=== PATIENT | female | born 1970 | race Caucasian/White ===

== ENCOUNTER 2018-02-22 21:18 | Emergency (ER) | payer MEDICARE ==
[2018-02-22] MEDS ORDERED: Ibuprofen 200 MG TAB ONE (22:02)
[2018-02-22] MEDS ORDERED: Acetaminophen 325 MG TAB ONE (22:02)
--- NOTE | 2018-02-22 22:23 | RAD ---
ONE VIEW CHEST: 02/22/18 COMPARISON: 03/27/13. HISTORY: Cough. FINDINGS: Normal cardiac silhouette. Lungs and pleural spaces are clear. No pneumothorax or acute osseous abnor malities. IMPRESSION: No acute cardiopulmonary process. POS: H
== END 2018-02-22 22:57 | disposition home or self-care (01) ==
LOC: ERS 21:18
DX: J10.1 Influenza due to other identified influenza virus with other respiratory manifestations (principal); E11.9 Type 2 diabetes mellitus without complications; E78.5 Hyperlipidemia, unspecified; E05.90 Thyrotoxicosis, unspecified without thyrotoxic crisis or storm; I10 Essential (primary) hypertension; Z87.891 Personal history of nicotine dependence; Z79.84 Long term (current) use of oral hypoglycemic drugs; Z79.899 Other long term (current) drug therapy
CPT/HCPCS: 71045; 87804

== ENCOUNTER 2018-10-17 11:42 | Emergency (ER) | payer MEDICARE, MEDICAID ==
[2018-10-17 12:27] LABS: #Eosinphils 0.3 thou/uL (0.0-0.7); #Lymphocytes 2.4 thou/uL (1.20-3.40); #Monocytes 0.5 thou/uL (0.11-0.59); #Neutrophils 5.5 thou/uL (1.40-6.50); %Basophils 0.3 % (0.0-1.0); %Lymphocytes 27.5 % (21.0-51.0); %Monocytes 6.2 % (0.0-10.0); Hemoglobin 10.6 g/dL (12.0-16.0); Mean Corpuscular HGB CONC 30.3 g/dL (32.0-36.0); Mean Corpuscular Hemoglobin 20.1 pg (27.0-31.0); Mean Corpuscular Volume 66.4 fL (78.0-98.0); Mean Platelet Volume 6.8 fL (7.4-10.4); Platelet Count 239 thou/uL (130-400); Red Blood Cell (RBC) Count 5.27 mill/uL (4.20-5.40); White Blood Cell (WBC) Count 8.8 thou/uL (4.8-10.8)
[2018-10-17 12:46] LABS: ALT (SGPT) 19 U/L (8-55); AST (SGOT) 22 U/L (5-34); Albumin 3.8 g/dL (3.5-5.0); Alkaline Phosphatase 132 U/L (40-150); Anion Gap 15 mmol/L (10-20); BUN (Urea Nitrogen) 8 mg/dL (7.0-18.7); Bilirubin, Total 0.7 mg/dL (0.2-1.2); Calc. Creatinine Clearance 0 mL/min (70-130); Calcium 8.9 mg/dL (7.8-10.44); Carbon Dioxide 21 mmol/L (22-29); Chloride 103 mmol/L (98-107); Estimated GFR-MDRD 85; Globulin 3.9 g/dL (2.4-3.5); Glucose 292 mg/dL (70-105); Potassium 3.6 mmol/L (3.5-5.1); Protein, Total 7.7 g/dL (6.0-8.3); Sodium 135 mmol/L (136-145)
[2018-10-17 12:52] LABS: Hypochromia MODERATE=16-30 cells (100X) (0-5/hpf); MDiff Complete? YES; Microcytosis MODERATE=15-30 cells (100X) (0-5/hpf); Platelet Morphology Comment Appears Adequate; Polychromasia SLIGHT = 2-3 cells (100X) (0-2/hpf); Reflex for Review?? YES
[2018-10-17 13:39] LABS: Bilirubin Negative (Negative); Blood, Urine Large (Negative); Clarity CLEAR (Clear); Glucose, Urine (Dipstick) >=1000 mg/dL (Negative); Leukocyte Negative (Negative); Nitrite Negative (Negative); Protein, Urine (Dipstick) 30 mg/dL (Neg-Trace); Specific Gravity, Urine 1.036 (1.002-1.036); Urobilinogen 0.2 mg/dL (0.2-1.0)
[2018-10-17 13:40] LABS: Bacteria/HPF None Seen HPF (None Seen); Hyaline Casts/LPF 0-3 HYALINE CAST LPF (0-3 Hyaline); Pathc Cast-AUWi Flag 0.68 (0-2.49); Squamous Epithelial 0-3 HPF (0-3); WBC/HPF 0-3 HPF (0-3)
[2018-10-17 13:48] LABS: Yeast-AUWi Flag 34.2 (0-25.0)
[2018-10-17 13:58] LABS: RBC/HPF GREATER THAN 50-TNTC HPF (0-3); Yeast-All Forms None Seen HPF (None Seen)
--- NOTE | 2018-10-17 15:32 | CT ---
CT ABDOMEN AND PELVIS WITHOUT CONTRAST: Date: 10/17/18 HISTORY: Abdominal pain, difficulty urinating. FINDINGS: Absence of oral and IV contrast reduces the sensitivity of exam, particularly for evaluation of solid organs and bowel. The lung bases are unremarkable. The liver demonstrates decreased attenuation comp ared to the spleen consistent with fatty infiltration. The patient is post cholecystectomy. No free a ir or free fluid is seen in the abdomen or pelvis. Appendix is normal. No calculi seen in the right kidney or left ureter. There are calculi in the inferior pole of the lef t kidney. A 4 mm calculus is seen in the urinary bladder close to the right UVJ. No right-sided hydro ureteronephrosis is seen. There is perinephric and periureteral stranding on the left. Uterus and ovaries are present. There is a 2.7 cm cystic lesion in the right ovary. There are degenerative changes in the spine. There is no evidence of aneurysmal dilatation of the abd ominal aorta. IMPRESSION: 1. Fatty liver. 2. Nonobstructing left renal calculi. 3. 4 mm calculus in the urinary bladder close to the right UVJ. 4. Findings suspicious for UTI. POS: OFF
[2018-10-17] MEDS ORDERED: Ketorolac Tromethamine 60 MG/2 ML VIAL ONE (16:15)
[2018-10-18 09:01] LABS: Critical Call w/ Read Back 520447
== END 2018-10-17 16:37 | disposition home or self-care (01) ==
LOC: ERS 11:42
DX: E07.9 Disorder of thyroid, unspecified (principal); E78.5 Hyperlipidemia, unspecified; I10 Essential (primary) hypertension; Z87.891 Personal history of nicotine dependence; Z79.84 Long term (current) use of oral hypoglycemic drugs; Z79.899 Other long term (current) drug therapy
CPT/HCPCS: 36415; 51701; 74176; 80053; 81003; 81015; 85025; 85060; 96372; J1885

== ENCOUNTER 2019-08-22 19:49 | Emergency (ER) | payer MEDICARE, MEDICAID ==
--- NOTE | 2019-08-22 20:21 | RAD ---
LEFT FOOT: 08/22/19 Three views. HISTORY: Fall with injury. Tarsals appear intact. There are degenerative changes in the intertarsal joints and at the tarsometat arsal joints. Slight deformity of the fourth and fifth metatarsals appear stable when compared to exam from 2015 an d suggests old injury. No acute fracture identified. IMPRESSION: No degenerative changes. No acute process or interval change. POS: AGW
[2019-08-22] MEDS ORDERED: HYDROcodone/Acetaminophen 5/325 mg Tablet ONE (21:03)
== END 2019-08-22 21:13 | disposition home or self-care (01) ==
LOC: ERS 19:49
DX: S93.602A Unspecified sprain of left foot, initial encounter (principal); E11.9 Type 2 diabetes mellitus without complications; E03.9 Hypothyroidism, unspecified; E78.5 Hyperlipidemia, unspecified; I10 Essential (primary) hypertension; G47.30 Sleep apnea, unspecified; G47.419 Narcolepsy without cataplexy; Z87.891 Personal history of nicotine dependence; W01.0XXA Fall on same level from slipping, tripping and stumbling without subsequent striking against object, initial encounter

== ENCOUNTER 2020-01-09 07:39 | Inpatient (IN) | payer MEDICARE, MEDICAID, OTHER ==
[2020-01-09 08:00] LABS: #Eosinphils 0.1 thou/uL (0.0-0.7); #Lymphocytes 2.4 thou/uL (1.20-3.40); #Monocytes 0.6 thou/uL (0.11-0.59); #Neutrophils 4.7 thou/uL (1.40-6.50); %Basophils 0.1 % (0.0-1.0); %Eosinophils 1.7 % (0.0-10.0); %Lymphocytes 30.7 % (21.0-51.0); %Monocytes 7.2 % (0.0-10.0); %Neutrophils 60.4 % (42.0-75.0); Hemoglobin 11.3 g/dL (12.0-16.0); Mean Corpuscular HGB CONC 29.8 g/dL (32.0-36.0); Mean Corpuscular Hemoglobin 20.4 pg (27.0-31.0); Mean Corpuscular Volume 68.3 fL (78.0-98.0); Mean Platelet Volume 11.1 fL (7.4-10.4); Platelet Count 428 thou/uL (130-400); RBC Distribution Width 16.6 % (11.5-14.5); Red Blood Cell (RBC) Count 5.56 mill/uL (4.20-5.40); White Blood Cell (WBC) Count 7.9 thou/uL (4.8-10.8)
[2020-01-09 08:07] LABS: Prothrombin Time 13.4 sec (12.0-14.7)
[2020-01-09 08:08] LABS: PTT 34.5 sec (22.9-36.1)
[2020-01-09 08:14] LABS: ALT (SGPT) 29 U/L (8-55); AST (SGOT) 27 U/L (5-34); Albumin 4.1 g/dL (3.5-5.0); Alkaline Phosphatase 118 U/L (40-110); Anion Gap 14 mmol/L (10-20); BUN (Urea Nitrogen) 15 mg/dL (7.0-18.7); Bilirubin, Total 0.5 mg/dL (0.2-1.2); CK (CPK) 93 U/L (29-168); Calc. Creatinine Clearance 0 mL/min (70-130); Calcium 9.4 mg/dL (7.8-10.44); Carbon Dioxide 22 mmol/L (22-29); Chloride 102 mmol/L (98-107); Estimated GFR-MDRD 81; Globulin 4.2 g/dL (2.4-3.5); Glucose 294 mg/dL (70-105); Potassium 3.9 mmol/L (3.5-5.1); Protein, Total 8.3 g/dL (6.0-8.3); Sodium 134 mmol/L (136-145)
[2020-01-09 08:25] LABS: Hypochromia MODERATE=16-30 cells (100X) (0-5/hpf); MDiff Complete? YES; Microcytosis MODERATE=15-30 cells (100X) (0-5/hpf); Platelet Morphology Comment Appears Increased; Polychromasia SLIGHT = 2-3 cells (100X) (0-2/hpf); Reflex for Review?? YES
--- NOTE | 2020-01-09 08:34 | CT ---
EXAM: CT ANGIOGRAM OF THE HEAD AND NECK INDICATION: Right-sided deficit. Level 1 stroke. COMPARISON: None. TECHNIQUE: CT angiogram of the head and neck are performed in the axial plane. Three-dimensional reformatted usman ges are submitted for interpretation. FINDINGS: CTA OF THE HEAD WITH AND WITHOUT CONTRAST: POSTCONTRAST CT OF BRAIN: Pathologic enhancement: No pathologic enhancement the brain. Postcontrast soft tissue neck CT: Aerodigestive tract:Aerodigestive tract is patent. No mucosal abnormality. Sinuses: Adequate aeration of the paranasal sinuses. There is sclerosis of both mastoid air cells. Pa rtial opacification of the right mastoid air cells.. Orbits: Bilateral ocular lenses are appropriately located. Both globes are intact. Retrobulbar fat is preserved. Symmetric attenuation the optic nerves and ocular rectus muscles. Salivary glands:Symmetric attenuation of the parotid and submandibular glands. Thyroid gland: Appropriate attenuation. Lymph nodes: Enlarged right level 2 lymph node measuring 1.4 x 1.3 cm. Paraspinal muscles: Symmetric attenuation of the sternocleidomastoid muscles. Appropriate attenuation of the paraspinal muscles. Cervical spine:Vertebral body height is maintained. No fracture. No significant central canal stenosi s or significant neural foraminal narrowing. Limited evaluation by technique. Upper mediastinum and lung apices: Cardiomegaly. Adequate aeration of the visualized lungs. CTA OF THE NECK WITH CONTRAST: Aorta: Appropriate enhancement and luminal diameter of the aortic arch. Right carotid artery: Appropriate enhancement and luminal diameter the origin the right carotid arter y, innominate artery, common carotid artery and internal carotid artery. No significant stenosis based upon NASCET criteria. Left carotid: Appropriate enhancement and luminal diameter the origin of the left common carotid devin ry, common carotid artery, carotid bifurcation and internal carotid artery. No significant stenosis based upon NASCET criteria. Subclavian arteries:Symmetric and patent. Vertebral arteries:Symmetric and patent throughout their course in the neck. CTA OF THE BRAIN: Intracranial internal carotid arteries:Appropriate enhancement and luminal diameter. No significant s tenosis. Anterior circulation: Symmetric enhancement and luminal diameter the A1 segments, proximal A2 segment s, M1 segments and proximal MCA branches. Intracranial vertebral arteries: Appropriate enhancement and luminal diameter. Right PICA artery orig in is not adequately assessed. Left PICA artery origin has appropriate enhancement and luminal diameter. Posterior circulation: Both vertebral arteries supply normal caliber basilar artery. Right P1 segment is appropriate enhancement and luminal diameter. Short segment severe stenosis involving the mid left P1 segment. IMPRESSION: 1. No hemodynamically significant stenosis, occlusion or aneurysmal formation of the cervical carotid arteries. 2. No hemodynamically significant stenosis, occlusion or aneurysmal formation in the anterior circula tion. 3. Short segment high-grade stenosis involving the mid left P1 segment. Results study discussed with Dr. Delacruz 01/09/2020 at 8:34 AM Code CR Transcribed Date/Time: 01/09/2020 8:46 AM
[2020-01-09] MEDS ORDERED: Aspirin 325 MG TAB ONE (09:11)
--- NOTE | 2020-01-09 09:18 | CT ---
CT BRAIN WITHOUT CONTRAST: HISTORY: Right-sided deficits. COMPARISON: None. FINDINGS: Subtle hypodensity along the external capsule on the left as well as the globus pallidus may reflect an acute infarction. The insular ribbon is intact. No acute hemorrhage. No midline shift. Paranasal sinuses and mastoids are clear. IMPRESSION: Subtle hypodensity along the left basal ganglia could reflect an acute infarction. No acute hemorrha ge. Hubbard, the patient's nurse, was notified of the findings via telephone at 8:07 a.m. CODE CR POS: HOME
--- NOTE | 2020-01-09 10:11 | PDOC.HHP ---
Hospitalist HPI - History of Present Illness Right-sided weakness History of Present Illness: PCP: [facility] The patient is a 49-year-old female with a past medical history significant for hypertension, hyperlipidemia, diabetes and obstructive sleep apnea that presents to the ER for the above complaint. Patient reports that she went to bed at approximately 2200 the night prior to admission in her usual health. She awoke at around 0200 and went to the kitchen to get some food. She noted that she was having difficulty using her right arm and right leg. She reports that she was unable to grasp a bag of chips. She reports that she was dragging her right leg. At that time, she thought that she had just slept on her right side wrong, making it numb and weak. She went back to bed. When she awoke, her symptoms had not resolved. Her daughter, who lives with her became concerned and decided to drive her to the ER for further evaluation. She denies any headache, neck stiffness, vision changes, or changes in speech. No recent trauma or falls. Not on any blood thinners. Denies chest pain, heart palpitations and swelling to lower extremities. Denies shortness of breath and wheezing. She denies abdominal pain, vomiting, diarrhea. She denies any urinary symptoms. ED Course: Patient presented hypertensive, mildly tachycardic with normal respirations normal O2 sat, afebrile NIH 7, noted right upper and lower extremity weakness and sensation decreased. No ataxia. CT brain was positive for left basal ganglia hypodensity consistent with infarct. CTA head and neck showed high-grade stenosis mid left P1 segment. VITAL SIGNS WedJan 09, 2020 07:41 GUS Trevizo Lacee BP: 178/105, Pulse: 95, Resp: 18, Temp: 98.2 (Oral), Pain: 0, O2 sat: 99 on ( Room Air), Time: 01/09/2020 07:41. VITAL SIGNS WedJan 09, 2020 08:53 GUS Walls Taylor BP: 118/62, Pulse: 85, Resp: 20, Pain: 0, O2 sat: 100 on (Room Air), Time: 2019 08:53. WedJan 09, 2020 10:05 Drug Name Dose Ordered Route Status Time aspirin oral 325 mg Oral Given 09:15 01/09/2020 Hospitalist ROS - Review of Systems Constitutional: denies: fever, chills Eyes: denies: vision change Respiratory: denies: cough, shortness of breath, hemoptysis Cardiovascular: denies: chest pain, palpitations, edema, light headedness Gastrointestinal: denies: nausea, vomiting, abdominal pain, diarrhea Genitourinary: denies: dysuria, hematuria Musculoskeletal: denies: neck pain Neurological: reports: weakness (Right upper extremity and right lower extremity ), numbness (Right upper extremity and right lower extremity), incoordination ( Right upper and lower extremity). denies: confusion All other systems reviewed; all pertinent +/- noted in HPI/Subj - Medication Medications: metFORMIN WedJan 09, 2020 08:06 GUS Ash Jenifer TABLET : Strength - 500 mg : ORAL Patient Dose: 1000 mg Oral 2 times a day (before meals). lisinopril WedJan 09, 2020 08:06 GUS Ash Jenifer TABLET : Strength - 20 mg : ORAL Patient Dose: 40 mg Oral daily. levothyroxine oral WedJan 09, 2020 08:06 GUS Ash Jenifer TABLET : Strength - 25 mcg : ORAL Patient Dose: 1 tab(s) Oral once a day (in the morning). fenofibrate WedJan 09, 2020 08:08 GUS Ash Jenifer TABLET : Strength - 160 mg : ORAL Patient Dose: 54 mg Oral once a day. glipiZIDE WedJan 09, 2020 08:08 GUS Ash Jenifer TABLET : Strength - 5 mg : ORAL Patient Dose: 5 mg Oral twice daily. hydroCHLOROthiazide WedJan 09, 2020 08:08 GUS Ash Jenifer TABLET : Strength - 25 mg : ORAL Patient Dose: 1 tab(s) Oral once a day (in the morning). Allergies: NKDA Hospitalist History - Past Medical History Source: patient, family, RN notes reviewed Other Medical History: MEDICAL HISTORY WedJan 09, 2020 08:56 GUS Walls Taylor Past medical history includes history of diabetes, Past medical history includes endocrine disease, hyperthyroidism, Past medical history includes history of hyperlipidemia, Past medical history includes history of hypertension , Past medical history includes neurological disease, narcolepsy, SLEEP APNEA. FEMALE SURGICAL HISTORY WedJan 09, 2020 08:56 GUS Walls Taylor Surgical history of cholecystectomy, Surgical history of orthopedic surgery, Left elbow. PSYCHIATRIC HISTORY WedJan 09, 2020 08:56 GUS Walls Taylor No previous psychiatric history. SOCIAL HISTORY WedJan 09, 2020 08:56 GUS Walls Taylor Patient denies alcohol use, Patient denies drug use, Patient is a former tobacco user, smoked cigarettes, Patient quit smoking more than 10 years ago. Smoking Status-Former. Lives with her daughter at home. She is disabled. Prior to admission, fully dependent. FAMILY HISTORY: Noncontributory for stroke or cardiac disease - Exam General Appearance: NAD, awake alert General - other findings: Obese Eye: PERRL, anicteric sclera ENT: normocephalic atraumatic, moist mucosa Neck: supple, symmetric Heart: RRR, no murmur, no gallops, no rubs, normal peripheral pulses Respiratory: CTAB, no wheezes, no rales, no ronchi, normal chest expansion Gastrointestinal: soft, non-tender, non-distended, normal bowel sounds, no bruit , no guarding, no rigidity Extremities: no cyanosis, no edema Skin: no rashes Neurological: cranial nerve grossly intact Neurological - other findings: NIH of 7 RUE/LLE drift hits bed. Numbness. Psychiatric: normal affect, A&O x 3 Hospitalist Results - Labs Result Diagrams: 01/09/20 07:46 01/09/20 07:46 Lab results: WBC 7.9 thou/uL (4.8-10.8) 01/09/20 07:46 Hgb 11.3 g/dL (12.0-16.0) L 01/09/20 07:46 Hct 38.0 % (36.0-47.0) 01/09/20 07:46 MCV 68.3 fL (78.0-98.0) L 01/09/20 07:46 Plt Count 428 thou/uL (130-400) H 01/09/20 07:46 Neutrophils % 60.4 % (42.0-75.0) 01/09/20 07:46 Sodium 134 mmol/L (136-145) L 01/09/20 07:46 Potassium 3.9 mmol/L (3.5-5.1) 01/09/20 07:46 Chloride 102 mmol/L (98-107) 01/09/20 07:46 Carbon Dioxide 22 mmol/L (22-29) 01/09/20 07:46 BUN 15 mg/dL (7.0-18.7) 01/09/20 07:46 Creatinine 0.76 mg/dL (0.6-1.1) 01/09/20 07:46 Glucose 294 mg/dL (70-105) H 01/09/20 07:46 Calcium 9.4 mg/dL (7.8-10.44) 01/09/20 07:46 Total Bilirubin 0.5 mg/dL (0.2-1.2) 01/09/20 07:46 AST 27 U/L (5-34) 01/09/20 07:46 ALT 29 U/L (8-55) 01/09/20 07:46 Alkaline Phosphatase 118 U/L (40-110) H 01/09/20 07:46 Creatine Kinase 93 U/L (29-168) 01/09/20 07:46 Troponin I Less than 0.010 ng/mL (< 0.028) 01/09/20 07:46 Serum Total Protein 8.3 g/dL (6.0-8.3) 01/09/20 07:46 Albumin 4.1 g/dL (3.5-5.0) 01/09/20 07:46 - EKG Interpretation EKG: EKG demonstrates normal sinus rhythm with rate 72, WI 152, QRS duration of 90, QTc of 462, cures axis -11 with normal T waves normal axis normal conduction normal ST segments. Normal EKG. - Radiology Interpretation CT scan - head Status: report reviewed by me Additional Comment: IMPRESSION: Subtle hypodensity along the left basal ganglia could reflect an acute infarction. No acute hemorrhage. Other Status: report reviewed by me Additional Comment: CTA head and neck IMPRESSION: 1. No hemodynamically significant stenosis, occlusion or aneurysmal formation of the cervical carotid arteries. 2. No hemodynamically significant stenosis, occlusion or aneurysmal formation in the anterior circula tion. 3. Short segment high-grade stenosis involving the mid left P1 segment. Hospitalist H&P A/P - Problem (1) CVA (cerebral vascular accident) Code(s): I63.9 - CEREBRAL INFARCTION, UNSPECIFIED Status: Acute (2) Hypertension Code(s): I10 - ESSENTIAL (PRIMARY) HYPERTENSION Status: Chronic (3) Hyperlipidemia Code(s): E78.5 - HYPERLIPIDEMIA, UNSPECIFIED Status: Chronic (4) Diabetes Code(s): E11.9 - TYPE 2 DIABETES MELLITUS WITHOUT COMPLICATIONS Status: Chronic (5) DM type 2 (diabetes mellitus, type 2) Status: Chronic (6) Hypothyroidism Code(s): E03.9 - HYPOTHYROIDISM, UNSPECIFIED Status: Chronic (7) Obstructive sleep apnea Code(s): G47.33 - OBSTRUCTIVE SLEEP APNEA (ADULT) (PEDIATRIC) Status: Chronic - Plan Plan: 49/F with cardiovascular risk factors presents for right-sided weakness. Will admit to stroke unit, inpatient status. Expected length of stay greater than 2 midnights. #CVA CT positive for left basal ganglia hypodensity. CTA showed high-grade stenosis mid L left P1 segment. NIH 7. Given aspirin. EKG normal sinus rhythm. Continue aspirin and add statin. Order MRI, echocardiogram. Check TSH, FLP, mag, UA, B12 and folate. Consult neurology and stroke team. Permissive hypertension. #Hypertension Presented with BP 178/105, currently 117/86. Takes lisinopril and HCTZ at home. We will hold oral home medications for now. We will continue to monitor blood pressure. #Hyperlipidemia We will check best lipid profile. Home dose of fenofibrate. We will restart home dose of fenofibrate and add high intensity statin. #Diabetes type 2 Takes metformin and glipizide at home. Presented with blood sugar 294. We will hold home anti-hyperglycemics for now. We will start moderate sliding scale. AC/at bedtime checks. We will check hemoglobin A1c. #Hypothyroidism Restart home dose of levothyroxine. Check TSH level. #Obstructive sleep apnea Has not used CPAP in > 6 years. Lovenox for DVT prophylaxis. Pepcid for GI prophylaxis. Full code. Discussed case with Dr. Gomez.
[2020-01-09] MEDS ORDERED: Labetalol HCl 100 MG/20 ML VIAL SLOW IVP PRN (10:44)
[2020-01-09] MEDS ORDERED: hydrALAZINE 20 MG/ML VIAL SLOW IVP PRN (10:44)
[2020-01-09] MEDS ORDERED: Dextrose 5% in Water 1,000 ML IV PRN (10:48)
[2020-01-09] MEDS ORDERED: Dextrose 50% Abboject 50 ML SYRINGE SLOW IVP PRN (10:48)
[2020-01-09] MEDS ORDERED: Calcium Carbonate 500 MG ChewTAB PO PRN (10:49)
[2020-01-09] MEDS ORDERED: Acetaminophen 650 MG Suppository PR PRN (10:49)
[2020-01-09] MEDS ORDERED: Ondansetron ODT 4 MG TAB PO PRN (10:49)
[2020-01-09] MEDS ORDERED: Ondansetron PF 4 MG/2 ML Vial IVP PRN (10:49)
[2020-01-09] MEDS ORDERED: Senokot S 8.6-50 MG TAB PO PRN (10:49)
[2020-01-09 11:20] LABS: Hemoglobin A1c 10.4 % (4.0-6.0)
--- NOTE | 2020-01-09 12:26 | MRI ---
MRI BRAIN WITHOUT CONTRAST: HISTORY: Right-sided paresthesia COMPARISON: None CORRELATION: CT scan from 01/09/2020. FINDINGS: There is a focal area of restricted diffusion in the left basal ganglia. The ventricular size is nora ropriate and the basilar cisterns are patent. No evidence of acute transcortical infarct, hemorrhage, midline shift or abnormal extra-axial fluid c ollections is seen. The visualized paranasal sinuses are well-aerated. IMPRESSION: Acute left basal ganglia infarction..
[2020-01-09] MEDS ORDERED: Iopamidol-370 76% 500 ML 1 ML ONE (14:55)
[2020-01-09 15:13] VITALS: BMI 36.2
[2020-01-09] MEDS ORDERED: Magnesium 2 GM/50 ML 2 GM in Premix Bag 1 BAG IVPB SCH (15:30)
[2020-01-09] MEDS: HumaLOG 300 UNITS/3 ML VIAL SC PRN ×2 (18:11→21:17)
[2020-01-09] MEDS: Atorvastatin Calcium 40 MG TAB PO SCH (21:08)
[2020-01-09] MEDS: Famotidine 20 MG TAB PO SCH (21:08)
[2020-01-09] MEDS: Enoxaparin Sodium 40 MG/0.4 ML SYRINGE SC SCH (21:09)
[2020-01-09 21:22] LABS: Bilirubin Negative (Negative); Blood, Urine Trace (Negative); Clarity Clear (Clear); Glucose, Urine (Dipstick) Greater than 1000 mg/dL (Negative); Ketone, Urine Negative (Negative); Leukocyte Negative Leu/uL (Negative); Nitrite Negative (Negative); Protein, Urine (Dipstick) 20 mg/dL (Neg-Trace); RBC/HPF 0-3 HPF (0-3); Squamous Epithelial 0-3 HPF (0-3); Urobilinogen Normal mg/dL (Less than 2); WBC/HPF 0-3 HPF (0-3)
[2020-01-09 21:23] LABS: Bacteria/HPF Rare-Few HPF (None Seen)
[2020-01-10 06:50] LABS: Anion Gap 12 mmol/L (10-20); BUN (Urea Nitrogen) 13 mg/dL (7.0-18.7); Calc. Creatinine Clearance 132 mL/min (70-130); Calcium 8.7 mg/dL (7.8-10.44); Carbon Dioxide 25 mmol/L (22-29); Cardiac Risk 6.6 (Less than 4.5); Chloride 102 mmol/L (98-107); Cholesterol 178 mg/dl (< 200 Desired); Estimated GFR-MDRD 87; Glucose 273 mg/dL (70-105); HDL Cholesterol 27 mg/dL (>60 Neg Risk); Potassium 3.9 mmol/L (3.5-5.1); Sodium 135 mmol/L (136-145); Triglycerides 437 mg/dL (Less than 150)
[2020-01-10 08:45] LABS: LDL Cholesterol, Calculated 64 mg/dL
[2020-01-10] MEDS: Aspirin 325 mg Enteric Coated Tablet PO SCH (09:13)
[2020-01-10] MEDS ORDERED: Famotidine 20 MG TAB ONE (09:13)
[2020-01-10] MEDS ORDERED: Aspirin 325 mg Enteric Coated Tablet ONE (09:13)
[2020-01-10] MEDS: Famotidine 20 MG TAB PO SCH ×2 (09:13→21:05)
[2020-01-10 10:53] LABS: #Neutrophils 3.6 thou/uL (1.40-6.50); %Basophils 0.4 % (0.0-1.0); %Eosinophils 2.7 % (0.0-10.0); %Lymphocytes 35.8 % (21.0-51.0); %Monocytes 7.1 % (0.0-10.0); Hemoglobin 10.2 g/dL (12.0-16.0); Mean Corpuscular HGB CONC 30.1 g/dL (32.0-36.0); Mean Corpuscular Hemoglobin 20.9 pg (27.0-31.0); Mean Corpuscular Volume 69.4 fL (78.0-98.0); Mean Platelet Volume 10.1 fL (7.4-10.4); Platelet Count 358 thou/uL (130-400); RBC Distribution Width 16.5 % (11.5-14.5); Red Blood Cell (RBC) Count 4.87 mill/uL (4.20-5.40); White Blood Cell (WBC) Count 6.7 thou/uL (4.8-10.8)
[2020-01-10 10:54] LABS: #Eosinphils 0.2 thou/uL (0.0-0.7); #Lymphocytes 2.4 thou/uL (1.20-3.40); #Monocytes 0.5 thou/uL (0.11-0.59); Anisocytosis SLIGHT = 6-15 cells (100X) (0-5/hpf); MDiff Complete? YES; Microcytosis SLIGHT = 6-15 cells (100X) (0-5/hpf); Platelet Morphology Comment Appears Adequate
[2020-01-10] MEDS: HumaLOG 300 UNITS/3 ML VIAL SC PRN ×2 (11:59→17:08)
[2020-01-10 12:35] LABS: SARS-CoV-2 MS2 Positive; SARS-CoV-2 N Gene Negative; SARS-CoV-2 S Gene Negative; SARS-CoV-2 by NAA Not Detected (NotDetected); SARS-CoV-2 orf1ab Negative
--- NOTE | 2020-01-10 13:14 | CON ---
NEUROLOGY CONSULTATION DATE OF CONSULTATION: 01/10/2020 REASON FOR CONSULTATION: Stroke. HISTORY OF PRESENT ILLNESS: Ms. Hortencia Duval is a 49-year-old female with medical history significant for hypertension, hyperlipidemia, diabetes, and obstructive sleep apnea, presented to the emergency room with acute onset right-sided weakness. She woke up around 2 and went to the kitchen to get some food and at that time, she noted she has difficulty using her right arm and the right leg. She reports that she was unable to grasp a bag of chips and she was dragging her right leg. The patient thought at that time that she just slept on the wrong side and was feeling numb and weak. She went back to bed. When she woke up, her symptoms persisted and she told her daughter who became concerned and decided to bring her to the emergency room for further evaluation. The patient denies nausea, vomiting, headache, chest pain, abdominal pain, vision changes, changes in speech or swallowing, recent illness, recent exposure to COVID, nausea, vomiting, diarrhea, or any urinary complaints. In the emergency room, she was found to be hypertensive and NIH score was [address] was done, which was positive for left basal ganglia hypodensity consistent with new infarction. CT of the head and neck showed high-grade stenosis of the mid left P1 segment. She was given aspirin 325 mg and was admitted for further evaluation. REVIEW OF SYSTEMS: All 14 systems were reviewed and were negative except the pertinent positive and negative mentioned in the HPI. PAST MEDICAL HISTORY: Diabetes, hypothyroidism, hyperlipidemia, hypertension, narcolepsy, sleep apnea. SURGICAL HISTORY: Orthopedic surgery. SOCIAL HISTORY: The patient lives with her daughter. Denies smoking, alcohol, illegal drug use. She is a former smoker. FAMILY HISTORY: No family history of stroke or cardiac disease. HOME MEDICATIONS: 1. Metformin 1000 mg p.o. b.i.d. 2. Lisinopril 40 mg daily. 3. Levothyroxine 25 mcg one tablet once a day. 4. Fenofibrate 54 mg once a day. 5. Glipizide 5 mg twice daily. 6. Hydrochlorothiazide 25 mg twice a day. ALLERGIES: NO KNOWN DRUG ALLERGIES. PHYSICAL EXAMINATION: VITAL SIGNS: Blood pressure 170/100, pulse 80, respiratory rate 18. CVS: Regular rate and rhythm. CHEST: Clear. ABDOMEN: Soft. NECK: Supple. NEUROLOGIC: Mental status; the patient is alert and oriented to person, place, and time. Speech is clear. Recent and remote memory intact. Fund of knowledge is appropriate. Motor; muscle tone is decreased in the right upper and lower extremity, left upper and lower extremity normal. Bulk is normal. Strength; right upper and lower extremity 1/5, left upper and lower extremity 5/5. Cerebellar; finger-nose testing could not be performed on the right secondary to weakness. Sensory, decreased sensation to touch in the right upper and lower extremity. Cranial nerves 2 through 12 intact except 7 left facial droop and 10 dysarthria. DATA REVIEWED: I reviewed the labs which are significant for anemia, 11.3 and hyperglycemia 428 and hyponatremia of 134 on admission. ia. Lab results: WBC 7.9 thou/uL (4.8-10.8) 01/09/20 07:46 Hgb 11.3 g/dL (12.0-16.0) L 01/09/20 07:46 Hct 38.0 % (36.0-47.0) 01/09/20 07:46 MCV 68.3 fL (78.0-98.0) L 01/09/20 07:46 Plt Count 428 thou/uL (130-400) H 01/09/20 07:46 Neutrophils % 60.4 % (42.0-75.0) 01/09/20 07:46 Sodium 134 mmol/L (136-145) L 01/09/20 07:46 Potassium 3.9 mmol/L (3.5-5.1) 01/09/20 07:46 Chloride 102 mmol/L (98-107) 01/09/20 07:46 Carbon Dioxide 22 mmol/L (22-29) 01/09/20 07:46 BUN 15 mg/dL (7.0-18.7) 01/09/20 07:46 Creatinine 0.76 mg/dL (0.6-1.1) 01/09/20 07:46 Glucose 294 mg/dL (70-105) H 01/09/20 07:46 Calcium 9.4 mg/dL (7.8-10.44) 01/09/20 07:46 Total Bilirubin 0.5 mg/dL (0.2-1.2) 01/09/20 07:46 AST 27 U/L (5-34) 01/09/20 07:46 ALT 29 U/L (8-55) 01/09/20 07:46 Alkaline Phosphatase 118 U/L (40-110) H 01/09/20 07:46 Creatine Kinase 93 U/L (29-168) 01/09/20 07:46 Troponin I Less than 0.010 ng/mL (< 0.028) 01/09/20 07:46 Serum Total Protein 8.3 g/dL (6.0-8.3) 01/09/20 07:46 Albumin 4.1 g/dL (3.5-5.0) 01/09/20 07:46 - EKG Interpretation EKG: EKG demonstrates normal sinus rhythm with rate 72, CO 152, QRS duration of 90, QTc of 462, cures axis -11 with normal T waves normal axis normal conduction normal ST segments. Normal EKG. - Radiology Interpretation CT scan - head Status: report reviewed by me Additional Comment: IMPRESSION: Subtle hypodensity along the left basal ganglia could reflect an acute infarction. No acute hemorrhage. Other Status: report reviewed by me Additional Comment: CTA head and neck IMPRESSION: 1. No hemodynamically significant stenosis, occlusion or aneurysmal formation of the cervical carotid arteries. 2. No hemodynamically significant stenosis, occlusion or aneurysmal formation in the anterior circula tion. 3. Short segment high-grade stenosis involving the mid left P1 segment. ASSESSMENT AND PLAN: (1) CVA (cerebral vascular accident) Code(s): I63.9 - CEREBRAL INFARCTION, UNSPECIFIED Status: Acute (2) Hypertension Code(s): I10 - ESSENTIAL (PRIMARY) HYPERTENSION Status: Chronic (3) Hyperlipidemia Code(s): E78.5 - HYPERLIPIDEMIA, UNSPECIFIED Status: Chronic (4) Diabetes Code(s): E11.9 - TYPE 2 DIABETES MELLITUS WITHOUT COMPLICATIONS Status: Chronic (5) DM type 2 (diabetes mellitus, type 2) Status: Chronic (6) Hypothyroidism Code(s): E03.9 - HYPOTHYROIDISM, UNSPECIFIED Status: Chronic (7) Obstructive sleep apnea Code(s): G47.33 - OBSTRUCTIVE SLEEP APNEA (ADULT) (PEDIATRIC) Status: Chronic Ms. Hortencia Duval is a 49-year-old female with history of hypertension, hyperlipidemia, presented with acute onset right-sided weakness. MRI of the brain was consistent with acute infarction in the left basal ganglia. Neuro checks every 4 hours. Permissive control of blood pressure at this time. Strict control of blood glucose. Check hemoglobin A1c, fasting lipid panel, and TSH. Telemetry to rule out arrhythmias. Continue home medications. Continue aspirin and high-intensity statin for secondary stroke prevention. PT/OT/Speech. DVT prophylaxis. Continue medical management per primary team. We will continue to follow. Thank you for the consult. Job ID: [id number]
[2020-01-10] MEDS: Methocarbamol 500 MG TAB PO PRN (17:07)
--- NOTE | 2020-01-10 18:04 | PDOC.HOSPP ---
- Subjective Encounter Date: 01/10/20 Subjective: Reports feeling well. Ongoing weakness of right upper and lower extremity. She denies chest pain, shortness of breath, abdominal pain. - Objective Vital Signs & Weight: Vital Signs (12 hours) Temp Pulse Pulse Resp BP BP BP 01/10/20 15:42 97.8 F 89 18 151/91 H 01/10/20 11:21 97.5 F L 76 18 157/85 H 01/10/20 08:46 79 140/98 H 01/10/20 08:22 85 156/80 H 140/98 H 01/10/20 07:33 97.5 F L 70 14 126/71 Pulse Ox 01/10/20 15:42 99 01/10/20 11:21 97 01/10/20 08:46 01/10/20 08:22 01/10/20 07:33 97 Weight Admit Weight 191 lb 12.8 oz Weight 191 lb 12.8 oz Result Diagrams: 01/10/20 03:53 01/10/20 03:30 Additional Labs: Accuchecks 01/10/20 01/10/20 01/09/20 16:35 10:55 20:47 POC Glucose 243 H 246 H 266 H 01/09/20 17:13 POC Glucose 240 H Hospitalist ROS - Review of Systems Constitutional: denies: fever, chills Respiratory: denies: cough, shortness of breath Cardiovascular: denies: chest pain, palpitations Gastrointestinal: denies: nausea, vomiting, abdominal pain Neurological: reports: weakness, numbness. denies: confusion - Medication Medications: Active Medications Generic Name Dose Route Start Last Admin Trade Name Sebastian PRN Reason Stop Dose Admin Aspirin 325 mg 01/10/20 09:00 01/10/20 09:13 Ecotrin PO 325 mg DAILY ALTAGRACIA Administration Atorvastatin Calcium 40 mg 01/09/20 21:00 01/09/20 21:08 Lipitor PO 40 mg HS ALTAGRACIA Administration Enoxaparin Sodium 40 mg 01/09/20 21:00 01/09/20 21:09 Lovenox SC 40 mg 2100 ALTAGRACIA Administration Famotidine 20 mg 01/09/20 21:00 01/10/20 09:13 Pepcid PO 20 mg BID ALTAGRACIA Administration Insulin Human Lispro 0 units 01/09/20 10:48 01/10/20 17:08 Humalog SC 4 unit .MODERATE SLIDING SC PRN Administration Moderate Correctional Scale Insulin Human Lispro 0 units 01/09/20 10:48 01/09/20 21:17 Humalog SC 3 unit .BEDTIME SLIDING SC PRN Administration Bedtime Correctional Scale Methocarbamol 500 mg 01/10/20 16:43 01/10/20 17:07 Methocarbamol 500 Mg Tab PO 500 mg QID PRN Administration Muscle Spasm Sodium Chloride 10 ml 01/09/20 10:44 01/09/20 21:09 Flush - Normal Saline IVF 10 ml PRN PRN Administration Saline Flush - Exam General Appearance: NAD, awake alert ENT: normocephalic atraumatic Heart: RRR, no murmur Respiratory: CTAB, no wheezes Gastrointestinal: soft, non-tender, non-distended Extremities: negative: no cyanosis, no edema Neurological: cranial nerve grossly intact, hemiplegia (of rigth side). negative: speech deficit Psychiatric: normal affect, normal behavior, A&O x 3 Hosp A/P (1) CVA (cerebral vascular accident) Code(s): I63.9 - CEREBRAL INFARCTION, UNSPECIFIED Status: Acute (2) DM type 2 (diabetes mellitus, type 2) Status: Chronic (3) Hyperlipidemia Code(s): E78.5 - HYPERLIPIDEMIA, UNSPECIFIED Status: Chronic (4) Hypertension Code(s): I10 - ESSENTIAL (PRIMARY) HYPERTENSION Status: Chronic (5) Hypothyroidism Code(s): E03.9 - HYPOTHYROIDISM, UNSPECIFIED Status: Chronic (6) Obstructive sleep apnea Code(s): G47.33 - OBSTRUCTIVE SLEEP APNEA (ADULT) (PEDIATRIC) Status: Chronic - Plan #CVA CT positive for left basal ganglia hypodensity. CTA showed high-grade stenosis mid L left P1 segment. NIH 7. Given aspirin. EKG normal sinus rhythm. Continue aspirin and statin MRI- acute left basal ganglia infarction echo- EF 60-65% with grade 1 diastolic dysfunction follow-up on labs Consult neurology and stroke team. #Hypertension will restart oral antihypertensives lisinopril 20mg and HCTZ 25mg #Hyperlipidemia fenofibrate and add high intensity statin. #Diabetes type 2 Takes metformin and glipizide at home. Presented with blood sugar 294. We will start moderate sliding scale. AC/at bedtime checks. We will check hemoglobin A1c. started 10 units glargine at night #Hypothyroidism Restart home dose of levothyroxine. Check TSH level. #Obstructive sleep apnea Has not used CPAP in > 6 years. Lovenox for DVT prophylaxis. Pepcid for GI prophylaxis. Full code.
[2020-01-10] MEDS ORDERED: Lorazepam 1 MG TAB PO SCH (19:00)
[2020-01-10] MEDS ORDERED: Lorazepam 2 MG/ML VIAL SLOW IVP SCH (19:00)
[2020-01-10] MEDS ORDERED: Insulin Glargine 10 UNITS in Pre-Filled Syringe 1 EACH SC SCH (21:00)
[2020-01-10] MEDS: Atorvastatin Calcium 40 MG TAB PO SCH (21:05)
[2020-01-10] MEDS: Enoxaparin Sodium 40 MG/0.4 ML SYRINGE SC SCH (21:05)
[2020-01-11] MEDS: Methocarbamol 500 MG TAB PO PRN (04:05)
[2020-01-11 05:13] LABS: Hemoglobin A1c 10.3 % (4.0-6.0)
[2020-01-11 05:24] LABS: Magnesium 1.5 mg/dL (1.6-2.6); Phosphorus 2.9 mg/dL (2.3-4.7)
[2020-01-11 05:43] LABS: Thyroid Stimulating Hormone 1.7805 uIU/mL (0.35-4.94)
[2020-01-11] MEDS: HumaLOG 300 UNITS/3 ML VIAL SC PRN ×3 (06:50→16:55)
[2020-01-11] MEDS: Lisinopril 20 MG TAB PO SCH (08:15)
[2020-01-11] MEDS ORDERED: hydrOXYzine Pamoate 25 mg Capsule PO PRN (08:15)
[2020-01-11] MEDS: Aspirin 325 mg Enteric Coated Tablet PO SCH (08:15)
[2020-01-11] MEDS: Famotidine 20 MG TAB PO SCH ×2 (08:16→20:38)
[2020-01-11] MEDS: Hydrochlorothiazide 25 MG TAB PO SCH (08:16)
--- NOTE | 2020-01-11 08:25 | PDOC.HOSPP ---
- Subjective Encounter Date: 01/11/20 Subjective: Patient reports feeling anxious this morning. She experienced anxiety last night requiring ativan administration. She reports frustration with current situation of having a stroke and being unable to move her right side. She denies chest pain, difficulty breathing, abdominal pain. Some muscle spasticity noted of right hand - Objective Vital Signs & Weight: Vital Signs (12 hours) Temp Pulse Resp BP BP Pulse Ox 01/11/20 08:15 147/87 H 01/11/20 04:00 97.7 F 68 14 182/95 H 96 01/11/20 00:00 97.5 F L 65 16 146/83 H 95 Weight Admit Weight 191 lb 12.8 oz Weight 191 lb 12.8 oz I&O: 01/10/20 01/11/20 01/12/20 06:59 06:59 06:59 Intake Total 812 Output Total 300 Balance 512 Result Diagrams: 01/10/20 03:53 01/10/20 03:30 Additional Labs: Accuchecks 01/11/20 01/10/20 01/10/20 06:09 20:54 16:35 POC Glucose 258 H 248 H 243 H 01/10/20 01/10/20 01/09/20 10:55 05:44 17:13 POC Glucose 246 H 266 H 240 H Hospitalist ROS - Review of Systems Constitutional: denies: fever, chills Respiratory: denies: cough, shortness of breath Cardiovascular: denies: chest pain, palpitations Gastrointestinal: denies: nausea, vomiting, abdominal pain Neurological: reports: weakness, numbness, incoordination. denies: confusion - Medication Medications: Active Medications Generic Name Dose Route Start Last Admin Trade Name Freq PRN Reason Stop Dose Admin Aspirin 325 mg 01/10/20 09:00 01/11/20 08:15 Ecotrin PO 325 mg DAILY ALTAGRACIA Administration Atorvastatin Calcium 40 mg 01/09/20 21:00 01/10/20 21:05 Lipitor PO 40 mg HS ALTAGRACIA Administration Enoxaparin Sodium 40 mg 01/09/20 21:00 01/10/20 21:05 Lovenox SC 40 mg 2100 ALTAGRACIA Administration Famotidine 20 mg 01/09/20 21:00 01/11/20 08:16 Pepcid PO 20 mg BID ALTAGRACIA Administration Hydrochlorothiazide 25 mg 01/11/20 09:00 01/11/20 08:16 Hydrochlorothiazide 25 Mg Tab PO 25 mg DAILY ALTAGRACIA Administration Insulin Human Lispro 0 units 01/09/20 10:48 01/11/20 06:50 Humalog SC 6 unit .MODERATE SLIDING SC PRN Administration Moderate Correctional Scale Insulin Human Lispro 0 units 01/09/20 10:48 01/09/20 21:17 Humalog SC 3 unit .BEDTIME SLIDING SC PRN Administration Bedtime Correctional Scale Lisinopril 20 mg 01/11/20 09:00 01/11/20 08:15 Lisinopril 20 Mg Tab PO 20 mg DAILY ALTAGRACIA Administration Methocarbamol 500 mg 01/10/20 16:43 01/11/20 04:05 Methocarbamol 500 Mg Tab PO 500 mg QID PRN Administration Muscle Spasm Sodium Chloride 10 ml 01/09/20 10:44 01/11/20 08:16 Flush - Normal Saline IVF 10 ml PRN PRN Administration Saline Flush - Exam General Appearance: NAD, awake alert Eye: PERRL ENT: normocephalic atraumatic Heart: RRR, no murmur Respiratory: CTAB, no wheezes Gastrointestinal: soft, non-tender, non-distended Extremities: no cyanosis, no edema Neurological: cranial nerve grossly intact, hemiplegia (of right upper and lower extremity) Musculoskeletal: no muscle wasting Psychiatric: normal affect, normal behavior, A&O x 3 Hosp A/P (1) CVA (cerebral vascular accident) Code(s): I63.9 - CEREBRAL INFARCTION, UNSPECIFIED Status: Acute (2) DM type 2 (diabetes mellitus, type 2) Status: Chronic (3) Hyperlipidemia Code(s): E78.5 - HYPERLIPIDEMIA, UNSPECIFIED Status: Chronic (4) Hypertension Code(s): I10 - ESSENTIAL (PRIMARY) HYPERTENSION Status: Chronic (5) Hypothyroidism Code(s): E03.9 - HYPOTHYROIDISM, UNSPECIFIED Status: Chronic (6) Obstructive sleep apnea Code(s): G47.33 - OBSTRUCTIVE SLEEP APNEA (ADULT) (PEDIATRIC) Status: Chronic - Plan #CVA CT positive for left basal ganglia hypodensity. CTA showed high-grade stenosis mid L left P1 segment. NIH 7. Given aspirin. EKG normal sinus rhythm. Continue aspirin and statin MRI- acute left basal ganglia infarction echo- EF 60-65% with grade 1 diastolic dysfunction Neurology consulted awaiting placement #Hypertension will restart oral antihypertensives lisinopril 20mg and HCTZ 25mg #Hyperlipidemia fenofibrate and atorvastatin #Diabetes type 2 Takes metformin and glipizide at home. Presented with blood sugar 294. We will start moderate sliding scale. A1c 10.3 started 10 units glargine BID #Hypothyroidism Restart home dose of levothyroxine. TSH wnl #Obstructive sleep apnea Has not used CPAP in > 6 years. #Anxiety - paxil 20mg started - vistaril 25mg q6h PRN Lovenox for DVT prophylaxis. Pepcid for GI prophylaxis. Full code.
[2020-01-11] MEDS ORDERED: Escitalopram Oxalate 10 mg Tablet PO SCH ×2 (09:00)
[2020-01-11] MEDS: Insulin Glargine 10 UNITS in Pre-Filled Syringe 1 EACH SC SCH ×2 (09:52→20:41)
[2020-01-11] MEDS: PARoxetine 20 MG TAB PO SCH (09:52)
--- NOTE | 2020-01-11 15:58 | PDOC.NEUPN ---
- Subjective Encounter Date: 01/11/20 Subjective: Patient continues to have focal deficits. No acute complaints overnight. - Objective Vital Signs & Weight: Vital Signs (12 hours) Temp Pulse Pulse Resp BP BP BP 01/11/20 11:45 98.0 F 72 18 120/77 01/11/20 09:19 68 129/66 01/11/20 08:15 147/87 H 01/11/20 04:00 97.7 F 68 14 182/95 H Pulse Ox 01/11/20 11:45 100 01/11/20 09:19 01/11/20 08:15 01/11/20 04:00 96 Weight Admit Weight 191 lb 12.8 oz Weight 191 lb 12.8 oz I&O: 01/10/20 01/11/20 01/12/20 06:59 06:59 06:59 Intake Total 812 Output Total 300 500 Balance 512 -500 Result Diagrams: 01/10/20 03:53 01/10/20 03:30 Additional Labs: Accuchecks 01/11/20 01/11/20 01/10/20 10:27 06:09 20:54 POC Glucose 249 H 258 H 248 H 01/10/20 01/10/20 16:35 05:44 POC Glucose 243 H 266 H Radiology Reviewed by me: Yes EKG Reviewed by me: Yes ROS - Review of Systems Constitutional: denies: fever, chills, sweats, weakness, malaise, other Eyes: denies: pain, vision change, conjunctivae inflammation, eyelid inflammation, redness, other ENT: denies: ear pain, ear discharge, nose pain, nose discharge, nose benito estion, mouth pain, mouth swelling, throat pain, throat swelling, other Respiratory: denies: cough, dry, shortness of breath, hemoptysis, SOB with excertion, pleuritic pain, sputum, wheezing, other Cardiovascular: denies: no pertinent history, AFIB, CAD, CHF, HTN, MD, Syncope, Hyperlipidemia, Mitral valve stenosis, Aortic stenosis, Valve insufficiency, Pulmonary hypertension, Other Gastrointestinal: denies: nausea, vomiting, abdominal pain, diarrhea, constipation, melena, hematochezia, other Genitourinary: denies: dysuria, frequency, incontinence, hematuria, retention, other Musculoskeletal: denies: neck pain, shoulder pain, arm pain, back pain, hand pain, leg pain, foot pain, other Skin: denies: rash, lesions, dora, bruising, other Neurological: reports: weakness, numbness, incoordination. denies: change in speech, confusion, seizures, other - Medication Medications: Active Medications Generic Name Dose Route Start Last Admin Trade Name Freq PRN Reason Stop Dose Admin Aspirin 325 mg 01/10/20 09:00 01/11/20 08:15 Ecotrin PO 325 mg DAILY ALTAGRACIA Administration Atorvastatin Calcium 40 mg 01/09/20 21:00 01/10/20 21:05 Lipitor PO 40 mg HS ALTAGRACIA Administration Enoxaparin Sodium 40 mg 01/09/20 21:00 01/10/20 21:05 Lovenox SC 40 mg 2100 ALTAGRACIA Administration Famotidine 20 mg 01/09/20 21:00 01/11/20 08:16 Pepcid PO 20 mg BID ALTAGRACIA Administration Hydrochlorothiazide 25 mg 01/11/20 09:00 01/11/20 08:16 Hydrochlorothiazide 25 Mg Tab PO 25 mg DAILY ALTAGRACIA Administration Insulin Glargine 10 units/ 0.1 mls @ 0 mls/hr 01/11/20 09:00 01/11/20 09:52 Miscellaneous Medication SC 0.1 mls BID ALTAGRACIA Administration As Directed Insulin Human Lispro 0 units 01/09/20 10:48 01/11/20 12:10 Humalog SC 4 unit .MODERATE SLIDING SC PRN Administration Moderate Correctional Scale Insulin Human Lispro 0 units 01/09/20 10:48 01/09/20 21:17 Humalog SC 3 unit .BEDTIME SLIDING SC PRN Administration Bedtime Correctional Scale Lisinopril 20 mg 01/11/20 09:00 01/11/20 08:15 Lisinopril 20 Mg Tab PO 20 mg DAILY ALTAGRACIA Administration Methocarbamol 500 mg 01/10/20 16:43 01/11/20 04:05 Methocarbamol 500 Mg Tab PO 500 mg QID PRN Administration Muscle Spasm Paroxetine HCl 20 mg 01/11/20 09:00 01/11/20 09:52 Paroxetine 20 Mg Tab PO 20 mg DAILY ALTAGRACIA Administration Sodium Chloride 10 ml 01/09/20 10:44 01/11/20 08:16 Flush - Normal Saline IVF 10 ml PRN PRN Administration Saline Flush - Exam General Appearance: awake alert Eye: PERRL ENT: normocephalic atraumatic Neck: supple Respiratory: CTAB Cardiovascular: RRR Gastrointestinal: soft Extremities: no cyanosis Skin: normal turgor Neurological: no new deficit, facial droop, hemiplegia Musculoskeletal: no muscle wasting PSYCH: normal affect, normal behavior, A&O x 3 Results - Labs Result Diagrams: 01/10/20 03:53 01/10/20 03:30 Lab results: WBC 6.7 thou/uL (4.8-10.8) 01/10/20 03:53 Hgb 10.2 g/dL (12.0-16.0) L 01/10/20 03:53 Hct 33.8 % (36.0-47.0) L 01/10/20 03:53 MCV 69.4 fL (78.0-98.0) L 01/10/20 03:53 Plt Count 358 thou/uL (130-400) 01/10/20 03:53 Neutrophils % 54.0 % (42.0-75.0) 01/10/20 03:53 Sodium 135 mmol/L (136-145) L 01/10/20 03:30 Potassium 3.9 mmol/L (3.5-5.1) 01/10/20 03:30 Chloride 102 mmol/L (98-107) 01/10/20 03:30 Carbon Dioxide 25 mmol/L (22-29) 01/10/20 03:30 BUN 13 mg/dL (7.0-18.7) 01/10/20 03:30 Creatinine 0.71 mg/dL (0.6-1.1) 01/10/20 03:30 Glucose 273 mg/dL (70-105) H 01/10/20 03:30 Calcium 8.7 mg/dL (7.8-10.44) 01/10/20 03:30 Total Bilirubin 0.5 mg/dL (0.2-1.2) 01/09/20 07:46 AST 27 U/L (5-34) 01/09/20 07:46 ALT 29 U/L (8-55) 01/09/20 07:46 Alkaline Phosphatase 118 U/L (40-110) H 01/09/20 07:46 Creatine Kinase 93 U/L (29-168) 01/09/20 07:46 Troponin I Less than 0.010 ng/mL (< 0.028) 01/09/20 07:46 Serum Total Protein 8.3 g/dL (6.0-8.3) 01/09/20 07:46 Albumin 4.1 g/dL (3.5-5.0) 01/09/20 07:46 Urine Ketones Negative mg/dL (Negative) 01/09/20 21:00 Urine Blood Trace (Negative) A 01/09/20 21:00 Urine Nitrite Negative (Negative) 01/09/20 21:00 Ur Leukocyte Esterase Negative Venus/uL (Negative) 01/09/20 21:00 Urine RBC 0-3 HPF (0-3) 01/09/20 21:00 Urine WBC 0-3 HPF (0-3) 01/09/20 21:00 Ur Squamous Epith Cells 0-3 HPF (0-3) 01/09/20 21:00 Urine Bacteria Rare-Few HPF (None Seen) 01/09/20 21:00 - EKG Interpretation EKG: NSR - Radiology Interpretation MRI - head Additional Comment: Consistent with acute infarction. PN A/P (1) CVA (cerebral vascular accident) Code(s): I63.9 - CEREBRAL INFARCTION, UNSPECIFIED Status: Acute (2) DM type 2 (diabetes mellitus, type 2) Status: Chronic (3) Diabetes Code(s): E11.9 - TYPE 2 DIABETES MELLITUS WITHOUT COMPLICATIONS Status: Chronic (4) Hyperlipidemia Code(s): E78.5 - HYPERLIPIDEMIA, UNSPECIFIED Status: Chronic (5) Hypertension Code(s): I10 - ESSENTIAL (PRIMARY) HYPERTENSION Status: Chronic (6) Hypothyroidism Code(s): E03.9 - HYPOTHYROIDISM, UNSPECIFIED Status: Chronic (7) Obstructive sleep apnea Code(s): G47.33 - OBSTRUCTIVE SLEEP APNEA (ADULT) (PEDIATRIC) Status: Chronic - Plan Daily Plan: PT/OT, speech therapy, DVT proph w/lovenox 49 year old presented with focal right sided deficits. MRI brain consistent with acute infarction. HCT reviewed and was positive for left basal ganglia hypodensity. CTA showed high-grade stenosis mid L left P1 segment. Consider CV surgery input. Telemetry Continue aspirin and high intensity statin for secondary stroke prevention. MRI brain reviewed and showed acute left basal ganglia infarction 2D Echo showed EF 60-65% with grade 1 diastolic dysfunction. No thrombus or PFO. Neurochecks every 4 hours. Continue home medications. Permissive BP control. Strict control of BG. PT/OT/Speech Rehab screen. CM on board for discharge planning. Continue medical management per primary team. Case discussed during MDR rounds.
[2020-01-11] MEDS: Atorvastatin Calcium 40 MG TAB PO SCH (20:38)
[2020-01-11] MEDS: Enoxaparin Sodium 40 MG/0.4 ML SYRINGE SC SCH (20:38)
[2020-01-12] MEDS: Methocarbamol 500 MG TAB PO PRN (00:49)
[2020-01-12] MEDS: Lisinopril 20 MG TAB PO SCH (10:17)
[2020-01-12] MEDS: Cyclobenzaprine 10 MG TAB PO PRN ×2 (10:17→20:49)
[2020-01-12] MEDS: PARoxetine 20 MG TAB PO SCH (10:17)
[2020-01-12] MEDS: Aspirin 325 mg Enteric Coated Tablet PO SCH (10:18)
[2020-01-12] MEDS: Insulin Glargine 10 UNITS in Pre-Filled Syringe 1 EACH SC SCH (10:18)
[2020-01-12] MEDS: Hydrochlorothiazide 25 MG TAB PO SCH (10:18)
[2020-01-12] MEDS: Famotidine 20 MG TAB PO SCH ×2 (10:18→20:49)
--- NOTE | 2020-01-12 11:18 | PDOC.NEUPN ---
- Subjective Encounter Date: 01/12/20 Subjective: Patient complains of painful muscle spasms, insomnia and right sided shaking. There was a concern about seizure like activity. - Objective Vital Signs & Weight: Vital Signs (12 hours) Temp Pulse Resp BP BP Pulse Ox 01/12/20 10:17 152/89 H 01/12/20 07:27 97.7 F 62 16 152/89 H 94 L 01/12/20 04:49 98.2 F 62 20 134/78 96 01/12/20 00:00 97.7 F 71 16 144/82 H 95 Weight Admit Weight 191 lb 12.8 oz Weight 191 lb 12.8 oz I&O: 01/11/20 01/12/20 01/13/20 06:59 06:59 06:59 Intake Total 812 1701 Output Total 300 2451 Balance 512 -750 Result Diagrams: 01/10/20 03:53 01/10/20 03:30 Additional Labs: Accuchecks 01/12/20 01/12/20 01/11/20 10:55 06:56 20:45 POC Glucose 289 H 212 H 167 H 01/11/20 16:42 POC Glucose 206 H Radiology Reviewed by me: Yes EKG Reviewed by me: Yes ROS - Review of Systems Constitutional: denies: fever, chills, sweats, weakness, malaise, other Eyes: denies: pain, vision change, conjunctivae inflammation, eyelid inflammation, redness, other ENT: denies: ear pain, ear discharge, nose pain, nose discharge, nose congestion, mouth pain, mouth swelling, throat pain, throat swelling, other Respiratory: denies: cough, dry, shortness of breath, hemoptysis, SOB with excertion, pleuritic pain, sputum, wheezing, other Cardiovascular: denies: no pertinent history, AFIB, CAD, CHF, HTN, [place], Syncope, Hyperlipidemia, Mitral valve stenosis, Aortic stenosis, Valve insufficiency, Pulmonary hypertension, Other Gastrointestinal: denies: nausea, vomiting, abdominal pain, diarrhea, constipation, melena, hematochezia, other Genitourinary: denies: dysuria, frequency, incontinence, hematuria, retention, other Musculoskeletal: reports: leg pain, foot pain Skin: denies: rash, lesions, dora, bruising, other Neurological: reports: weakness, numbness, incoordination, change in speech - Medication Medications: Active Medications Generic Name Dose Route Start Last Admin Trade Name Freq PRN Reason Stop Dose Admin Aspirin 325 mg 01/10/20 09:00 01/12/20 10:18 Ecotrin PO 325 mg DAILY ALTAGRACIA Administration Atorvastatin Calcium 40 mg 01/09/20 21:00 01/11/20 20:38 Lipitor PO 40 mg HS ALTAGRACIA Administration Cyclobenzaprine HCl 10 mg 01/12/20 08:31 01/12/20 10:17 Cyclobenzaprine 10 Mg Tab PO 10 mg TID PRN Administration Muscle Spasm Enoxaparin Sodium 40 mg 01/09/20 21:00 01/11/20 20:38 Lovenox SC 40 mg 2100 ALTAGRACIA Administration Famotidine 20 mg 01/09/20 21:00 01/12/20 10:18 Pepcid PO 20 mg BID ALTAGRACIA Administration Hydrochlorothiazide 25 mg 01/11/20 09:00 01/12/20 10:18 Hydrochlorothiazide 25 Mg Tab PO 25 mg DAILY ALTAGRACIA Administration Hydroxyzine Pamoate 25 mg 01/11/20 08:15 01/11/20 20:39 Hydroxyzine Pamoate 25 Mg Capsule PO 25 mg Q6H PRN Administration Anxiety Insulin Glargine 10 units/ 0.1 mls @ 0 mls/hr 01/11/20 09:00 01/12/20 10:18 Miscellaneous Medication SC 0.1 mls BID ALTAGRACIA Administration As Directed Insulin Human Lispro 0 units 01/09/20 10:48 01/11/20 16:55 Humalog SC 4 unit .MODERATE SLIDING SC PRN Administration Moderate Correctional Scale Insulin Human Lispro 0 units 01/09/20 10:48 01/09/20 21:17 Humalog SC 3 unit .BEDTIME SLIDING SC PRN Administration Bedtime Correctional Scale Lisinopril 20 mg 01/11/20 09:00 01/12/20 10:17 Lisinopril 20 Mg Tab PO 20 mg DAILY ALTAGRACIA Administration Paroxetine HCl 20 mg 01/11/20 09:00 01/12/20 10:17 Paroxetine 20 Mg Tab PO 20 mg DAILY ALTAGRACIA Administration Sodium Chloride 10 ml 01/09/20 10:44 01/11/20 08:16 Flush - Normal Saline IVF 10 ml PRN PRN Administration Saline Flush - Exam General Appearance: awake alert Eye: PERRL ENT: normocephalic atraumatic Neck: supple Respiratory: CTAB Cardiovascular: RRR Gastrointestinal: soft Extremities: no cyanosis Skin: normal turgor Neurological: no new deficit Musculoskeletal: normal tone, no muscle wasting PSYCH: normal affect, normal behavior, A&O x 3 Results - Labs Result Diagrams: 01/10/20 03:53 01/10/20 03:30 Lab results: WBC 6.7 thou/uL (4.8-10.8) 01/10/20 03:53 Hgb 10.2 g/dL (12.0-16.0) L 01/10/20 03:53 Hct 33.8 % (36.0-47.0) L 01/10/20 03:53 MCV 69.4 fL (78.0-98.0) L 01/10/20 03:53 Plt Count 358 thou/uL (130-400) 01/10/20 03:53 Neutrophils % 54.0 % (42.0-75.0) 01/10/20 03:53 Sodium 135 mmol/L (136-145) L 01/10/20 03:30 Potassium 3.9 mmol/L (3.5-5.1) 01/10/20 03:30 Chloride 102 mmol/L (98-107) 01/10/20 03:30 Carbon Dioxide 25 mmol/L (22-29) 01/10/20 03:30 BUN 13 mg/dL (7.0-18.7) 01/10/20 03:30 Creatinine 0.71 mg/dL (0.6-1.1) 01/10/20 03:30 Glucose 273 mg/dL (70-105) H 01/10/20 03:30 Calcium 8.7 mg/dL (7.8-10.44) 01/10/20 03:30 Total Bilirubin 0.5 mg/dL (0.2-1.2) 01/09/20 07:46 AST 27 U/L (5-34) 01/09/20 07:46 ALT 29 U/L (8-55) 01/09/20 07:46 Alkaline Phosphatase 118 U/L (40-110) H 01/09/20 07:46 Creatine Kinase 93 U/L (29-168) 01/09/20 07:46 Troponin I Less than 0.010 ng/mL (< 0.028) 01/09/20 07:46 Serum Total Protein 8.3 g/dL (6.0-8.3) 01/09/20 07:46 Albumin 4.1 g/dL (3.5-5.0) 01/09/20 07:46 Urine Ketones Negative mg/dL (Negative) 01/09/20 21:00 Urine Blood Trace (Negative) A 01/09/20 21:00 Urine Nitrite Negative (Negative) 01/09/20 21:00 Ur Leukocyte Esterase Negative Vneus/uL (Negative) 01/09/20 21:00 Urine RBC 0-3 HPF (0-3) 01/09/20 21:00 Urine WBC 0-3 HPF (0-3) 01/09/20 21:00 Ur Squamous Epith Cells 0-3 HPF (0-3) 01/09/20 21:00 Urine Bacteria Rare-Few HPF (None Seen) 01/09/20 21:00 PN A/P (1) CVA (cerebral vascular accident) Code(s): I63.9 - CEREBRAL INFARCTION, UNSPECIFIED Status: Acute (2) DM type 2 (diabetes mellitus, type 2) Status: Chronic (3) Diabetes Code(s): E11.9 - TYPE 2 DIABETES MELLITUS WITHOUT COMPLICATIONS Status: Chronic (4) Hyperlipidemia Code(s): E78.5 - HYPERLIPIDEMIA, UNSPECIFIED Status: Chronic (5) Hypertension Code(s): I10 - ESSENTIAL (PRIMARY) HYPERTENSION Status: Chronic (6) Hypothyroidism Code(s): E03.9 - HYPOTHYROIDISM, UNSPECIFIED Status: Chronic (7) Obstructive sleep apnea Code(s): G47.33 - OBSTRUCTIVE SLEEP APNEA (ADULT) (PEDIATRIC) Status: Chronic - Plan Daily Plan: PT/OT, speech therapy, DVT proph w/SCDs 49 year old presented with focal right sided deficits. MRI brain consistent with acute infarction. Patient complains of painful muscle spasms, insomnia and right sided shaking. There was a concern about seizure like activity. EEG ordered to rule out cortical irritability. Gabapentin 200 mg bid started for muscle spasms. HCT reviewed and was positive for left basal ganglia hypodensity. CTA showed high-grade stenosis mid L left P1 segment. Consider CV surgery input. Telemetry Continue aspirin and high intensity statin for secondary stroke prevention. MRI brain reviewed and showed acute left basal ganglia infarction 2D Echo showed EF 60-65% with grade 1 diastolic dysfunction. No thrombus or PFO. Neurochecks every 4 hours. Continue home medications. Strict BP control. Strict control of BG. PT/OT/Speech Rehab screen. CM on board for discharge planning. Continue medical management per primary team. Case discussed during MDR rounds.
[2020-01-12] MEDS: HumaLOG 300 UNITS/3 ML VIAL SC PRN ×3 (12:17→20:48)
--- NOTE | 2020-01-12 13:40 | CON ---
DATE OF CONSULTATION: 01/12/2020 REQUESTING PHYSICIAN: Dr. Gomez. CHIEF COMPLAINT: Right body weakness. 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 She simply assumed that she laid on her right arm and leg wrong and went back to bed when she finished her snack, but when she awoke that weakness had persisted and her daughter with whom she lives insisted she seek medical attention. She denies any previous such episodes. PAST MEDICAL HISTORY: Significant for diabetes, hypothyroidism, hypertension, hyperlipidemia, and sleep apnea. She has had a previous cholecystectomy. HOME MEDICATIONS: 1. Lisinopril 40 mg a day. 2. Hydrochlorothiazide 25 mg a day. 3. Synthroid 25 mcg a day. 4. Metformin twice a day. 5. Glipizide 5 mg twice a day. 6. Fenofibrate 54 mg a day. ALLERGIES: SHE DENIES ANY MEDICAL ALLERGIES. SOCIAL HISTORY: She has a distant history of smoking. FAMILY HISTORY: Negative for coronary artery disease or cerebrovascular disease. REVIEW OF SYSTEMS: Negative for any antecedent eye, speech, facial, or extremity symptoms consistent with TIAs. Negative for chest pain. Negative for shortness of breath, cough, or recent illnesses. PHYSICAL EXAMINATION: VITAL SIGNS: She is 5 feet and 1 inch. Weighs 191-3/4 pounds. She is currently having an EEG performed. Her heart rate is 73, blood pressure 118/82. GENERAL: She is able to converse freely. She is able to move her left arm and leg without difficulty. She seems a bit weak in her right arm and leg. LABORATORY EXAM: Showed white count 6.7, hemoglobin 10.2, and platelet count 358,000. Her sodium was 134, otherwise her electrolytes were normal. BUN 15, creatinine 0.76, albumin 4.1. Her glucose on admission was 294. She has had one blood glucose in the 160s and one that was just over 300, otherwise all of her blood sugars have been in the 200s. Her hemoglobin A1c was 10.3. Her TSH was 1.7805. Folate was 11.1 and B12 was 548. She has had no chest x-ray this admission. One from roughly 2 years ago, is a portable film that suggests some cardiomegaly. Her initial head CT suggested the left basal ganglia hypodensity and her brain MRI confirmed an acute infarction of the left basal ganglia. The CTA of her neck and [place] of [place] showed a focal stenosis of the P2 segment, but no intrathoracic, cervical, or intracranial carotid disease. IMPRESSION AND RECOMMENDATIONS: I would rather imagine this patient will wind up with dual antiplatelet therapy at least for the short term. There is no conventional surgical intervention appropriate for this woman's documented vascular disease in the P2 segment and she has no carotid disease demonstrable on CT angiography. I do not even see any nonocclusive plaque or luminal irregularity. She will certainly need risk factor modification to get her blood sugars, blood pressures, and lipids under strict control. Job ID: [id number]
--- NOTE | 2020-01-12 16:00 | PDOC.HOSPP ---
- Subjective Encounter Date: 01/12/20 Subjective: Patient is resting comfortably in bed. She reports ongoing muscle cramps of right arm. She describes uncontrollable jerking movements of left arm. She denies chest pain, shortness of breath, abdominal pain. - Objective Vital Signs & Weight: Vital Signs (12 hours) Temp Pulse Pulse Resp BP BP BP 01/12/20 11:38 97.5 F L 73 12 118/82 01/12/20 10:17 152/89 H 01/12/20 09:27 86 122/83 01/12/20 07:27 97.7 F 62 16 152/89 H 01/12/20 04:49 98.2 F 62 20 134/78 Pulse Ox 01/12/20 11:38 97 01/12/20 10:17 01/12/20 09:27 01/12/20 07:27 94 L 01/12/20 04:49 96 Weight Admit Weight 191 lb 12.8 oz Weight 191 lb 12.8 oz I&O: 01/11/20 01/12/20 01/13/20 06:59 06:59 06:59 Intake Total 812 1701 720 Output Total 300 2451 Balance 512 -750 720 Result Diagrams: 01/10/20 03:53 01/10/20 03:30 Additional Labs: Accuchecks 01/12/20 01/12/20 01/11/20 10:55 06:56 20:45 POC Glucose 289 H 212 H 167 H 01/11/20 16:42 POC Glucose 206 H Hospitalist ROS - Review of Systems Constitutional: denies: fever, chills Respiratory: denies: cough, shortness of breath Cardiovascular: denies: chest pain, palpitations Gastrointestinal: denies: nausea, vomiting, abdominal pain Musculoskeletal: reports: arm pain, hand pain Neurological: reports: weakness, numbness - Medication Medications: Active Medications Generic Name Dose Route Start Last Admin Trade Name Freq PRN Reason Stop Dose Admin Aspirin 325 mg 01/10/20 09:00 01/12/20 10:18 Ecotrin PO 325 mg DAILY ALTAGRACIA Administration Atorvastatin Calcium 40 mg 01/09/20 21:00 01/11/20 20:38 Lipitor PO 40 mg HS ALTAGRACIA Administration Cyclobenzaprine HCl 10 mg 01/12/20 08:31 01/12/20 10:17 Cyclobenzaprine 10 Mg Tab PO 10 mg TID PRN Administration Muscle Spasm Enoxaparin Sodium 40 mg 01/09/20 21:00 01/11/20 20:38 Lovenox SC 40 mg 2100 ALTAGRACIA Administration Famotidine 20 mg 01/09/20 21:00 01/12/20 10:18 Pepcid PO 20 mg BID ALTAGRACIA Administration Hydrochlorothiazide 25 mg 01/11/20 09:00 01/12/20 10:18 Hydrochlorothiazide 25 Mg Tab PO 25 mg DAILY ALTAGRACIA Administration Hydroxyzine Pamoate 25 mg 01/11/20 08:15 01/11/20 20:39 Hydroxyzine Pamoate 25 Mg Capsule PO 25 mg Q6H PRN Administration Anxiety Insulin Glargine 10 units/ 0.1 mls @ 0 mls/hr 01/11/20 09:00 01/12/20 10:18 Miscellaneous Medication SC 0.1 mls BID ALTAGRACIA Administration As Directed Insulin Human Lispro 0 units 01/09/20 10:48 01/12/20 12:17 Humalog SC 6 unit .MODERATE SLIDING SC PRN Administration Moderate Correctional Scale Insulin Human Lispro 0 units 01/09/20 10:48 01/09/20 21:17 Humalog SC 3 unit .BEDTIME SLIDING SC PRN Administration Bedtime Correctional Scale Lisinopril 20 mg 01/11/20 09:00 01/12/20 10:17 Lisinopril 20 Mg Tab PO 20 mg DAILY ALTAGRACIA Administration Paroxetine HCl 20 mg 01/11/20 09:00 01/12/20 10:17 Paroxetine 20 Mg Tab PO 20 mg DAILY ALTAGRACIA Administration Sodium Chloride 10 ml 01/09/20 10:44 01/11/20 08:16 Flush - Normal Saline IVF 10 ml PRN PRN Administration Saline Flush Active Medications Generic Name Dose Route Start Last Admin Trade Name Freq PRN Reason Stop Dose Admin Acetaminophen 650 mg 01/09/20 10:49 Tylenol PO Q4H PRN Headache/Fever/Mild Pain (1-3) Acetaminophen 650 mg 01/09/20 10:49 Tylenol SD Q4H PRN Headache/Fever/Mild Pain (1-3) Aspirin 325 mg 01/10/20 09:00 01/12/20 10:18 Ecotrin PO 325 mg DAILY ALTAGRACIA Administration Atorvastatin Calcium 40 mg 01/09/20 21:00 01/11/20 20:38 Lipitor PO 40 mg HS ALTAGRACIA Administration Calcium Carbonate 1,000 mg 01/09/20 10:49 Tums PO Q4H PRN Heartburn or Indigestion Cyclobenzaprine HCl 10 mg 01/12/20 08:31 01/12/20 10:17 Cyclobenzaprine 10 Mg Tab PO 10 mg TID PRN Administration Muscle Spasm Dextrose/Water 25 gm 01/09/20 10:48 Dextrose 50% SLOW IVP PRN PRN Hypoglycemia Enoxaparin Sodium 40 mg 01/09/20 21:00 01/11/20 20:38 Lovenox SC 40 mg 2100 ALTAGRACIA Administration Famotidine 20 mg 01/09/20 21:00 01/12/20 10:18 Pepcid PO 20 mg BID ALTAGRACIA Administration Gabapentin 200 mg 01/12/20 21:00 Gabapentin 100 Mg Cap PO BID ALTAGRACIA Glucagon 1 mg 01/09/20 10:48 Glucagon IM PRN PRN Hypoglycemia Hydralazine HCl 10 mg 01/09/20 10:44 Apresoline SLOW IVP Q4H PRN BP > 220/110 Hydrochlorothiazide 25 mg 01/11/20 09:00 01/12/20 10:18 Hydrochlorothiazide 25 Mg Tab PO 25 mg DAILY ALTAGRACIA Administration Hydroxyzine Pamoate 25 mg 01/11/20 08:15 01/11/20 20:39 Hydroxyzine Pamoate 25 Mg Capsule PO 25 mg Q6H PRN Administration Anxiety Dextrose/Water 1,000 mls @ 0 mls/hr 01/09/20 10:48 D5w IV .Q0M PRN Hypoglycemia As Directed Insulin Glargine 15 units/ 0.15 mls @ 0 mls/hr 01/12/20 16:02 Miscellaneous Medication SC BID ALTAGRACIA As Directed Insulin Human Lispro 0 units 01/09/20 10:48 01/12/20 12:17 Humalog SC 6 unit .MODERATE SLIDING SC PRN Administration Moderate Correctional Scale Insulin Human Lispro 0 units 01/09/20 10:48 01/09/20 21:17 Humalog SC 3 unit .BEDTIME SLIDING SC PRN Administration Bedtime Correctional Scale Labetalol HCl 20 mg 01/09/20 10:44 Normodyne SLOW IVP Q1H PRN BP > 220/110 Lisinopril 20 mg 01/11/20 09:00 01/12/20 10:17 Lisinopril 20 Mg Tab PO 20 mg DAILY ALTAGRACIA Administration Mirtazapine 15 mg 01/12/20 21:00 Mirtazapine 15 Mg Tab PO HS ALTAGRACIA Paroxetine HCl 20 mg 01/11/20 09:00 01/12/20 10:17 Paroxetine 20 Mg Tab PO 20 mg DAILY ALTAGRACIA Administration Senna/Docusate Sodium 2 tab 01/09/20 10:49 Senokot S PO BID PRN Constipation Sodium Chloride 10 ml 01/09/20 10:44 01/11/20 08:16 Flush - Normal Saline IVF 10 ml PRN PRN Administration Saline Flush - Exam General Appearance: NAD, awake alert Eye: PERRL ENT: normocephalic atraumatic Heart: RRR, no murmur Respiratory: CTAB, no wheezes Gastrointestinal: soft, non-tender, non-distended Extremities: no cyanosis, no edema Neurological: cranial nerve grossly intact, hemiplegia (right sided) Musculoskeletal: normal tone Psychiatric: normal affect, normal behavior, A&O x 3 Hosp A/P (1) CVA (cerebral vascular accident) Code(s): I63.9 - CEREBRAL INFARCTION, UNSPECIFIED Status: Acute (2) DM type 2 (diabetes mellitus, type 2) Status: Chronic (3) Hyperlipidemia Code(s): E78.5 - HYPERLIPIDEMIA, UNSPECIFIED Status: Chronic (4) Hypertension Code(s): I10 - ESSENTIAL (PRIMARY) HYPERTENSION Status: Chronic (5) Hypothyroidism Code(s): E03.9 - HYPOTHYROIDISM, UNSPECIFIED Status: Chronic (6) Obstructive sleep apnea Code(s): G47.33 - OBSTRUCTIVE SLEEP APNEA (ADULT) (PEDIATRIC) Status: Chronic - Plan #CVA CT positive for left basal ganglia hypodensity. CTA showed high-grade stenosis mid L left P1 segment. NIH 7. Given aspirin. EKG normal sinus rhythm. Continue aspirin and statin MRI- acute left basal ganglia infarction echo- EF 60-65% with grade 1 diastolic dysfunction Neurology onboard and evaluating awaiting placement to SNF #Hypertension Restarted oral antihypertensives lisinopril 20mg and HCTZ 25mg #Hyperlipidemia fenofibrate and atorvastatin #Diabetes type 2 Takes metformin and glipizide at home. Blood sugars have been high during hospitalization A1c 10.3 Increased glargine to 15 units BID, titrate as appropriate #Hypothyroidism Restart home dose of levothyroxine. TSH wnl #Obstructive sleep apnea Has not used CPAP in > 6 years. #Anxiety - paxil 20mg started - vistaril 25mg q6h PRN Muscle spasms - flexeril - gabapentin Lovenox for DVT prophylaxis. Pepcid for GI prophylaxis. Full code.
[2020-01-12] MEDS: Insulin Glargine 15 UNITS in Pre-Filled Syringe 1 EACH SC SCH (20:47)
[2020-01-12] MEDS: Enoxaparin Sodium 40 MG/0.4 ML SYRINGE SC SCH (20:47)
[2020-01-12] MEDS: Gabapentin 100 MG CAP PO SCH (20:49)
[2020-01-12] MEDS: Mirtazapine 15 MG TAB PO SCH (20:50)
[2020-01-12] MEDS: Atorvastatin Calcium 40 MG TAB PO SCH (20:50)
[2020-01-13] MEDS: HumaLOG 300 UNITS/3 ML VIAL SC PRN ×2 (06:37→11:45)
[2020-01-13] MEDS ORDERED: Fenofibrate 48 MG TAB PO SCH (09:15)
[2020-01-13] MEDS: Famotidine 20 MG TAB PO SCH ×2 (09:18→20:30)
[2020-01-13] MEDS: Gabapentin 100 MG CAP PO SCH ×2 (09:18→20:29)
[2020-01-13] MEDS: Lisinopril 20 MG TAB PO SCH (09:18)
[2020-01-13] MEDS: PARoxetine 20 MG TAB PO SCH (09:18)
[2020-01-13] MEDS: Cyclobenzaprine 10 MG TAB PO PRN ×2 (09:18→20:29)
[2020-01-13] MEDS: Hydrochlorothiazide 25 MG TAB PO SCH (09:18)
[2020-01-13] MEDS: Aspirin 325 mg Enteric Coated Tablet PO SCH (09:18)
[2020-01-13] MEDS: Insulin Glargine 15 UNITS in Pre-Filled Syringe 1 EACH SC SCH ×2 (09:19→20:32)
--- NOTE | 2020-01-13 13:40 | EKG ---
Test Reason : STROKE ALERT Blood Pressure : / mmHG Vent. Rate : 072 BPM Atrial Rate : 072 BPM P-R Int : 152 ms QRS Dur : 090 ms QT Int : 422 ms P-R-T Axes : 051 -11 057 degrees QTc Int : 462 ms Normal sinus rhythm Septal infarct , age undetermined Abnormal ECG Confirmed by SARAH CEBALLOS DO ([id number]), editor trade journal EVELIA HENRIQUEZ ([id number]) on 01/13/2020 1:40:10 PM Referred By: Confirmed By:SARAH CEBALLOS DO
[2020-01-13] MEDS: metFORMIN 500 MG TAB PO SCH (16:45)
[2020-01-13] MEDS: glipiZIDE 5 MG TAB PO SCH (16:45)
--- NOTE | 2020-01-13 17:05 | PDOC.HOSPP ---
- Subjective Encounter Date: 01/13/20 Encounter Time: 12:03 Subjective: pt up in bed no complains - Objective Vital Signs & Weight: Vital Signs (12 hours) Temp Pulse Resp BP BP BP Pulse Ox 01/13/20 15:24 98.1 F 72 15 113/80 95 01/13/20 11:00 97.9 F 73 13 119/75 93 L 01/13/20 10:23 123/66 01/13/20 09:18 132/74 01/13/20 08:30 98.0 F 74 16 132/74 98 Weight Admit Weight 191 lb 12.8 oz Weight 191 lb 12.8 oz I&O: 01/12/20 01/13/20 01/14/20 06:59 06:59 06:59 Intake Total 1701 960 480 Output Total 2451 Balance -750 960 480 Result Diagrams: 01/10/20 03:53 01/10/20 03:30 Additional Labs: Accuchecks 01/13/20 01/13/20 01/13/20 16:48 11:25 05:49 POC Glucose 185 H 207 H 214 H 01/12/20 20:22 POC Glucose 302 H Hospitalist ROS - Review of Systems Respiratory: denies: cough, dry, shortness of breath, hemoptysis, SOB with excertion, pleuritic pain, sputum, wheezing, other Cardiovascular: denies: chest pain, palpitations, orthopnea, paroxysmal noc. dyspnea, edema, light headedness, other Gastrointestinal: denies: nausea, vomiting, abdominal pain, diarrhea, constipation, melena, hematochezia, other - Medication Medications: Active Medications Generic Name Dose Route Start Last Admin Trade Name Freq PRN Reason Stop Dose Admin Aspirin 325 mg 01/10/20 09:00 01/13/20 09:18 Ecotrin PO 325 mg DAILY ALTAGRACIA Administration Atorvastatin Calcium 40 mg 01/09/20 21:00 01/12/20 20:50 Lipitor PO 40 mg HS ALTAGRACIA Administration Cyclobenzaprine HCl 10 mg 01/12/20 08:31 01/13/20 09:18 Cyclobenzaprine 10 Mg Tab PO 10 mg TID PRN Administration Muscle Spasm Enoxaparin Sodium 40 mg 01/09/20 21:00 01/12/20 20:47 Lovenox SC 40 mg 2100 ALTAGRACIA Administration Famotidine 20 mg 01/09/20 21:00 01/13/20 09:18 Pepcid PO 20 mg BID ALTAGRACIA Administration Gabapentin 200 mg 01/12/20 21:00 01/13/20 09:18 Gabapentin 100 Mg Cap PO 200 mg BID ALTAGRACIA Administration Glipizide 5 mg 01/13/20 16:30 01/13/20 16:45 Glipizide 5 Mg Tab PO 5 mg BID-AC ALTAGRACIA Administration Hydrochlorothiazide 25 mg 01/11/20 09:00 01/13/20 09:18 Hydrochlorothiazide 25 Mg Tab PO 25 mg DAILY ALTAGRACIA Administration Hydroxyzine Pamoate 25 mg 01/11/20 08:15 01/11/20 20:39 Hydroxyzine Pamoate 25 Mg Capsule PO 25 mg Q6H PRN Administration Anxiety Insulin Glargine 15 units/ 0.15 mls @ 0 mls/hr 01/12/20 21:00 01/13/20 09:19 Miscellaneous Medication SC 0.15 mls BID ALTAGRACIA Administration As Directed Insulin Human Lispro 0 units 01/09/20 10:48 01/13/20 11:45 Humalog SC 4 unit .MODERATE SLIDING SC PRN Administration Moderate Correctional Scale Insulin Human Lispro 0 units 01/09/20 10:48 01/12/20 20:48 Humalog SC 4 unit .BEDTIME SLIDING SC PRN Administration Bedtime Correctional Scale Lisinopril 20 mg 01/11/20 09:00 01/13/20 09:18 Lisinopril 20 Mg Tab PO 20 mg DAILY ALTAGRACIA Administration Metformin HCl 1,000 mg 01/13/20 16:30 01/13/20 16:45 Metformin 500 Mg Tab PO 1,000 mg BID-AC ALTAGRACIA Administration Mirtazapine 15 mg 01/12/20 21:00 01/12/20 20:50 Mirtazapine 15 Mg Tab PO 15 mg HS ALTAGRACIA Administration Paroxetine HCl 20 mg 01/11/20 09:00 01/13/20 09:18 Paroxetine 20 Mg Tab PO 20 mg DAILY ALTAGRACIA Administration Sodium Chloride 10 ml 01/09/20 10:44 01/11/20 08:16 Flush - Normal Saline IVF 10 ml PRN PRN Administration Saline Flush - Exam Neck: negative: supple, symmetric, no JVD, no thyromegaly, no lymphadenopathy, no carotid bruit, JVD Heart: negative: RRR, no murmur, no gallops, no rubs, normal peripheral pulses, irregular, diminshed peripheral pulses, murmur present, II/IV, III/IV Respiratory: negative: CTAB, no wheezes, no rales, no ronchi, normal chest expansion, no tachypnea, normal percussion, rales, rhonchi, tachypneic, wheezes Gastrointestinal: negative: soft, non-tender, non-distended, normal bowel sounds, no palpable masses, no hepatomegaly, no splenomegaly, no bruit, no guarding, no rigidity, tender to palpation, distended, diminished bowl sounds, voluntary guarding Extremities: 1+ LE edema Extremities - other findings: right upper and lower ext weakness Hosp A/P - Plan Hosp A/P (1) CVA (cerebral vascular accident) Code(s): I63.9 - CEREBRAL INFARCTION, UNSPECIFIED Status: Acute (2) DM type 2 (diabetes mellitus, type 2) Status: Chronic (3) Hyperlipidemia Code(s): E78.5 - HYPERLIPIDEMIA, UNSPECIFIED Status: Chronic (4) Hypertension Code(s): I10 - ESSENTIAL (PRIMARY) HYPERTENSION Status: Chronic (5) Hypothyroidism Code(s): E03.9 - HYPOTHYROIDISM, UNSPECIFIED Status: Chronic (6) Obstructive sleep apnea Code(s): G47.33 - OBSTRUCTIVE SLEEP APNEA (ADULT) (PEDIATRIC) Status: Chronic - Plan #CVA CT positive for left basal ganglia hypodensity. CTA showed high-grade stenosis mid L left P1 segment. NIH 7. Given aspirin. EKG normal sinus rhythm. Continue aspirin and statin MRI- acute left basal ganglia infarction echo- EF 60-65% with grade 1 diastolic dysfunction Neurology onboard and evaluating awaiting placement to SNF #Hypertension Restarted oral antihypertensives lisinopril 20mg and HCTZ 25mg #Hyperlipidemia fenofibrate and atorvastatin #Diabetes type 2 Takes metformin and glipizide at home. Blood sugars have been high during hospitalization A1c 10.3 Increased glargine to 15 units BID, titrate as appropriate #Hypothyroidism Restart home dose of levothyroxine. TSH wnl #Obstructive sleep apnea Has not used CPAP in > 6 years. #Anxiety - paxil 20mg started - vistaril 25mg q6h PRN Muscle spasms - flexeril - gabapentin Lovenox for DVT prophylaxis. Pepcid for GI prophylaxis. Full code.
[2020-01-13] MEDS: Enoxaparin Sodium 40 MG/0.4 ML SYRINGE SC SCH (20:29)
[2020-01-13] MEDS: Atorvastatin Calcium 40 MG TAB PO SCH (20:29)
[2020-01-13] MEDS: Mirtazapine 15 MG TAB PO SCH (20:30)
[2020-01-14] MEDS: HumaLOG 300 UNITS/3 ML VIAL SC PRN ×2 (05:31→11:45)
[2020-01-14] MEDS: Levothyroxine Sodium 25 MCG TAB PO SCH (05:41)
[2020-01-14] MEDS: Famotidine 20 MG TAB PO SCH ×2 (09:06→21:02)
[2020-01-14] MEDS: Gabapentin 100 MG CAP PO SCH ×2 (09:07→21:02)
[2020-01-14] MEDS: Hydrochlorothiazide 25 MG TAB PO SCH (09:08)
[2020-01-14] MEDS: Lisinopril 20 MG TAB PO SCH (09:08)
[2020-01-14] MEDS: metFORMIN 500 MG TAB PO SCH ×2 (09:10→17:44)
[2020-01-14] MEDS: glipiZIDE 5 MG TAB PO SCH ×2 (09:11→17:44)
[2020-01-14] MEDS: PARoxetine 20 MG TAB PO SCH (09:12)
[2020-01-14] MEDS: Aspirin 325 mg Enteric Coated Tablet PO SCH (09:12)
[2020-01-14] MEDS: Fenofibrate 48 MG TAB PO SCH (09:12)
[2020-01-14] MEDS: Insulin Glargine 15 UNITS in Pre-Filled Syringe 1 EACH SC SCH ×2 (09:13→21:04)
--- NOTE | 2020-01-14 12:51 | PDOC.HOSPP ---
- Subjective Encounter Date: 01/14/20 Encounter Time: 10:30 Subjective: pt up in bed no complains. Daughter at bedside updated. - Objective Vital Signs & Weight: Vital Signs (12 hours) Temp Pulse Resp BP BP BP Pulse Ox 01/14/20 11:36 97.7 F 86 16 112/69 94 L 01/14/20 09:08 138/76 01/14/20 07:58 98 F 72 16 120/79 95 01/14/20 04:00 97.5 F L 67 18 107/63 96 Weight Admit Weight 191 lb 12.8 oz Weight 191 lb 12.8 oz I&O: 01/13/20 01/14/20 01/15/20 06:59 06:59 06:59 Intake Total 960 1100 240 Balance 960 1100 240 Result Diagrams: 01/10/20 03:53 01/10/20 03:30 Additional Labs: Accuchecks 01/14/20 01/14/20 01/13/20 10:54 05:34 20:33 POC Glucose 164 H 253 H 183 H 01/13/20 16:48 POC Glucose 185 H Hospitalist ROS - Review of Systems Cardiovascular: denies: chest pain, palpitations, orthopnea, paroxysmal noc. dyspnea, edema, light headedness, other Gastrointestinal: denies: nausea, vomiting, abdominal pain, diarrhea, constipation, melena, hematochezia, other Genitourinary: denies: dysuria, frequency, incontinence, hematuria, retention, other - Medication Medications: Active Medications Generic Name Dose Route Start Last Admin Trade Name Freq PRN Reason Stop Dose Admin Aspirin 325 mg 01/10/20 09:00 01/14/20 09:12 Ecotrin PO 325 mg DAILY ALTAGRACIA Administration Atorvastatin Calcium 40 mg 01/09/20 21:00 01/13/20 20:29 Lipitor PO 40 mg HS ALTAGRACIA Administration Cyclobenzaprine HCl 10 mg 01/12/20 08:31 01/13/20 20:29 Cyclobenzaprine 10 Mg Tab PO 10 mg TID PRN Administration Muscle Spasm Enoxaparin Sodium 40 mg 01/09/20 21:00 01/13/20 20:29 Lovenox SC 40 mg 2100 ALTAGRACIA Administration Famotidine 20 mg 01/09/20 21:00 01/14/20 09:06 Pepcid PO 20 mg BID ALTAGRACIA Administration Fenofibrate 48 mg 01/14/20 07:30 01/14/20 09:12 Fenofibrate 48 Mg Tab PO 48 mg DAILY-AC ALTAGRACIA Administration Gabapentin 200 mg 01/12/20 21:00 01/14/20 09:07 Gabapentin 100 Mg Cap PO 200 mg BID ALTAGRACIA Administration Glipizide 5 mg 01/13/20 16:30 01/14/20 09:11 Glipizide 5 Mg Tab PO 5 mg BID-AC ALTAGRACIA Administration Hydrochlorothiazide 25 mg 01/11/20 09:00 01/14/20 09:08 Hydrochlorothiazide 25 Mg Tab PO 25 mg DAILY ALTAGRACIA Administration Hydroxyzine Pamoate 25 mg 01/11/20 08:15 01/11/20 20:39 Hydroxyzine Pamoate 25 Mg Capsule PO 25 mg Q6H PRN Administration Anxiety Insulin Glargine 15 units/ 0.15 mls @ 0 mls/hr 01/12/20 21:00 01/14/20 09:13 Miscellaneous Medication SC 0.15 mls BID ALTAGRACIA Administration As Directed Insulin Human Lispro 0 units 01/09/20 10:48 01/14/20 11:45 Humalog SC 2 unit .MODERATE SLIDING SC PRN Administration Moderate Correctional Scale Insulin Human Lispro 0 units 01/09/20 10:48 01/12/20 20:48 Humalog SC 4 unit .BEDTIME SLIDING SC PRN Administration Bedtime Correctional Scale Levothyroxine Sodium 25 mcg 01/14/20 06:00 01/14/20 05:41 Levothyroxine Sodium 25 Mcg Tab PO 25 mcg 0600 ALTAGRACIA Administration Lisinopril 20 mg 01/11/20 09:00 01/14/20 09:08 Lisinopril 20 Mg Tab PO 20 mg DAILY ALTAGRACIA Administration Metformin HCl 1,000 mg 01/13/20 16:30 01/14/20 09:10 Metformin 500 Mg Tab PO 1,000 mg BID-AC ALTAGRACIA Administration Mirtazapine 15 mg 01/12/20 21:00 01/13/20 20:30 Mirtazapine 15 Mg Tab PO 15 mg HS ALTAGRACIA Administration Paroxetine HCl 20 mg 01/11/20 09:00 01/14/20 09:12 Paroxetine 20 Mg Tab PO 20 mg DAILY ALTAGRACIA Administration Sodium Chloride 10 ml 01/09/20 10:44 01/14/20 09:14 Flush - Normal Saline IVF 10 ml PRN PRN Administration Saline Flush - Exam Neck: negative: supple, symmetric, no JVD, no thyromegaly, no lymphadenopathy, no carotid bruit, JVD Heart: negative: RRR, no murmur, no gallops, no rubs, normal peripheral pulses, irregular, diminshed peripheral pulses, murmur present, II/IV, III/IV Respiratory: negative: CTAB, no wheezes, no rales, no ronchi, normal chest expansion, no tachypnea, normal percussion, rales, rhonchi, tachypneic, wheezes Hosp A/P - Plan Hosp A/P (1) CVA (cerebral vascular accident) Code(s): I63.9 - CEREBRAL INFARCTION, UNSPECIFIED Status: Acute (2) DM type 2 (diabetes mellitus, type 2) Status: Chronic (3) Hyperlipidemia Code(s): E78.5 - HYPERLIPIDEMIA, UNSPECIFIED Status: Chronic (4) Hypertension Code(s): I10 - ESSENTIAL (PRIMARY) HYPERTENSION Status: Chronic (5) Hypothyroidism Code(s): E03.9 - HYPOTHYROIDISM, UNSPECIFIED Status: Chronic (6) Obstructive sleep apnea Code(s): G47.33 - OBSTRUCTIVE SLEEP APNEA (ADULT) (PEDIATRIC) Status: Chronic anemia: - Plan #CVA CT positive for left basal ganglia hypodensity. CTA showed high-grade stenosis mid L left P1 segment. NIH 7. Given aspirin. EKG normal sinus rhythm. Continue aspirin and statin MRI- acute left basal ganglia infarction echo- EF 60-65% with grade 1 diastolic dysfunction Neurology onboard and evaluating awaiting placement to SNF 01/13 will get iron levels #Hypertension Restarted oral antihypertensives lisinopril 20mg and HCTZ 25mg #Hyperlipidemia fenofibrate and atorvastatin #Diabetes type 2 Takes metformin and glipizide at home. Blood sugars have been high during hospitalization A1c 10.3 Increased glargine to 15 units BID, titrate as appropriate #Hypothyroidism Restart home dose of levothyroxine. TSH wnl #Obstructive sleep apnea Has not used CPAP in > 6 years. #Anxiety - paxil 20mg started - vistaril 25mg q6h PRN Muscle spasms - flexeril - gabapentin Lovenox for DVT prophylaxis. Pepcid for GI prophylaxis. Full code.
[2020-01-14 13:48] LABS: Iron 25 ug/dL (50-170); Iron Binding Capacity, Total 395 mcg/dL (265-497)
[2020-01-14] MEDS ORDERED: Clopidogrel Bisulfate 75 MG TAB PO SCH (16:45)
[2020-01-14] MEDS: Cyclobenzaprine 10 MG TAB PO PRN (18:34)
[2020-01-14] MEDS: Mirtazapine 15 MG TAB PO SCH (21:02)
[2020-01-14] MEDS: Atorvastatin Calcium 40 MG TAB PO SCH (21:02)
[2020-01-14] MEDS: Enoxaparin Sodium 40 MG/0.4 ML SYRINGE SC SCH (21:03)
[2020-01-15] MEDS: Acetaminophen 325 MG TAB PO PRN ×2 (01:28→09:00)
[2020-01-15] MEDS: Levothyroxine Sodium 25 MCG TAB PO SCH (06:08)
[2020-01-15] MEDS: Cyclobenzaprine 10 MG TAB PO PRN (08:51)
[2020-01-15] MEDS: Gabapentin 100 MG CAP PO SCH (08:53)
[2020-01-15] MEDS: Fenofibrate 48 MG TAB PO SCH (08:53)
[2020-01-15] MEDS: Insulin Glargine 15 UNITS in Pre-Filled Syringe 1 EACH SC SCH (08:53)
[2020-01-15] MEDS: Hydrochlorothiazide 25 MG TAB PO SCH (08:54)
[2020-01-15] MEDS: metFORMIN 500 MG TAB PO SCH (08:54)
[2020-01-15] MEDS: Lisinopril 20 MG TAB PO SCH (08:54)
[2020-01-15] MEDS: glipiZIDE 5 MG TAB PO SCH (08:54)
[2020-01-15] MEDS: PARoxetine 20 MG TAB PO SCH (08:54)
[2020-01-15] MEDS: Aspirin 325 mg Enteric Coated Tablet PO SCH (08:55)
[2020-01-15] MEDS: Famotidine 20 MG TAB PO SCH (08:55)
[2020-01-15] MEDS ORDERED: Clopidogrel Bisulfate 75 MG TAB PO SCH (09:00)
--- NOTE | 2020-01-15 10:47 | EEG ---
DATE OF SERVICE: 01/12/2020 ATTENDING PHYSICIAN: Kelli Cordova MD This EEG was performed using 24-channel [employer] Video Digital EEG machine with 24-disk electrodes. This was an extended 2 hours 6 minutes of inpatient video EEG recording. BACKGROUND: The posterior background rhythm is 9 to 10 Hz. The background rhythm attenuates with eye opening and enhances with eye closure. HYPERVENTILATION: Not performed. PHOTIC STIMULATION: Bioccipital symmetric driving responses observed. SLEEP: Drowsiness and sleep are observed. The patient had spells during the recording characterized by shaking of the extremities and associated with abnormal EEG correlate. EEG DIAGNOSIS: Normal awake, drowsy, and sleep EEG. Job ID: [id number]
[2020-01-15] MEDS: HumaLOG 300 UNITS/3 ML VIAL SC PRN (11:49)
[2020-01-15 11:50] VITALS: BP 139/79; TEMP 98.6
--- NOTE | 2020-01-15 13:18 | PDOC.NEUPN ---
- Subjective Encounter Date: 01/15/20 Subjective: Patient continues to have spells chatacterized by RUE shaking which are non- epileptic and seems anxiety induced confirmed by EEG. - Objective Vital Signs & Weight: Vital Signs (12 hours) Temp Pulse Resp BP BP Pulse Ox 01/15/20 11:35 98.6 F 77 18 139/79 100 01/15/20 08:54 138/76 01/15/20 07:19 98.2 F 77 16 114/77 97 01/15/20 03:29 97.8 F 64 13 125/72 95 Weight Admit Weight 191 lb 12.8 oz Weight 191 lb 12.8 oz I&O: 01/14/20 01/15/20 01/16/20 06:59 06:59 06:59 Intake Total 1100 1496 234 Balance 1100 1496 234 Result Diagrams: 01/10/20 03:53 01/10/20 03:30 Additional Labs: Accuchecks 01/15/20 01/15/20 01/14/20 10:52 04:39 21:10 POC Glucose 165 H 119 H 142 H 01/14/20 16:53 POC Glucose 98 Radiology Reviewed by me: Yes EKG Reviewed by me: Yes ROS - Review of Systems Constitutional: denies: fever, chills, sweats, weakness, malaise, other Eyes: denies: pain, vision change, conjunctivae inflammation, eyelid inflammation, redness, other ENT: denies: ear pain, ear discharge, nose pain, nose discharge, nose congestion, mouth pain, mouth swelling, throat pain, throat swelling, other Respiratory: denies: cough, dry, shortness of breath, hemoptysis, SOB with excertion, pleuritic pain, sputum, wheezing, other Cardiovascular: denies: no pertinent history, AFIB, CAD, CHF, HTN, LA, Syncope, Hyperlipidemia, Mitral valve stenosis, Aortic stenosis, Valve insufficiency, Pulmonary hypertension, Other Gastrointestinal: denies: nausea, vomiting, abdominal pain, diarrhea, constipation, melena, hematochezia, other Genitourinary: denies: dysuria, frequency, incontinence, hematuria, retention, other Musculoskeletal: denies: neck pain, shoulder pain, arm pain, back pain, hand pain, leg pain, foot pain, other Skin: denies: rash, lesions, dora, bruising, other Neurological: reports: weakness, numbness, incoordination - Medication Medications: Active Medications Generic Name Dose Route Start Last Admin Trade Name Freq PRN Reason Stop Dose Admin Acetaminophen 650 mg 01/09/20 10:49 01/15/20 09:00 Tylenol PO 650 mg Q4H PRN Administration Headache/Fever/Mild Pain (1-3) Aspirin 325 mg 01/10/20 09:00 01/15/20 08:55 Ecotrin PO 325 mg DAILY ALTAGRACIA Administration Atorvastatin Calcium 40 mg 01/09/20 21:00 01/14/20 21:02 Lipitor PO 40 mg HS ALTAGRACIA Administration Clopidogrel Bisulfate 75 mg 01/15/20 09:00 01/15/20 08:54 Clopidogrel Bisulfate 75 Mg Tab PO 75 mg DAILY ALTAGRACIA Administration Cyclobenzaprine HCl 10 mg 01/12/20 08:31 01/15/20 08:51 Cyclobenzaprine 10 Mg Tab PO 10 mg TID PRN Administration Muscle Spasm Enoxaparin Sodium 40 mg 01/09/20 21:00 01/14/20 21:03 Lovenox SC 40 mg 2100 ALTAGRACIA Administration Famotidine 20 mg 01/09/20 21:00 01/15/20 08:55 Pepcid PO 20 mg BID ALTAGRACIA Administration Fenofibrate 48 mg 01/14/20 07:30 01/15/20 08:53 Fenofibrate 48 Mg Tab PO 48 mg DAILY-AC ALTAGRACIA Administration Gabapentin 200 mg 01/12/20 21:00 01/15/20 08:53 Gabapentin 100 Mg Cap PO 200 mg BID ALTAGRACIA Administration Glipizide 5 mg 01/13/20 16:30 01/15/20 08:54 Glipizide 5 Mg Tab PO 5 mg BID-AC ALTAGRACIA Administration Hydrochlorothiazide 25 mg 01/11/20 09:00 01/15/20 08:54 Hydrochlorothiazide 25 Mg Tab PO 25 mg DAILY ALTAGRACIA Administration Hydroxyzine Pamoate 25 mg 01/11/20 08:15 01/11/20 20:39 Hydroxyzine Pamoate 25 Mg Capsule PO 25 mg Q6H PRN Administration Anxiety Insulin Glargine 15 units/ 0.15 mls @ 0 mls/hr 01/12/20 21:00 01/15/20 08:53 Miscellaneous Medication SC 0.15 mls BID ALTAGRACIA Administration As Directed Insulin Human Lispro 0 units 01/09/20 10:48 01/15/20 11:49 Humalog SC 2 unit .MODERATE SLIDING SC PRN Administration Moderate Correctional Scale Insulin Human Lispro 0 units 01/09/20 10:48 01/12/20 20:48 Humalog SC 4 unit .BEDTIME SLIDING SC PRN Administration Bedtime Correctional Scale Levothyroxine Sodium 25 mcg 01/14/20 06:00 01/15/20 06:08 Levothyroxine Sodium 25 Mcg Tab PO 25 mcg 0600 ALTAGRACIA Administration Lisinopril 20 mg 01/11/20 09:00 01/15/20 08:54 Lisinopril 20 Mg Tab PO 20 mg DAILY ALTAGRACIA Administration Metformin HCl 1,000 mg 01/13/20 16:30 01/15/20 08:54 Metformin 500 Mg Tab PO 1,000 mg BID-AC ALTAGRACIA Administration Mirtazapine 15 mg 01/12/20 21:00 01/14/20 21:02 Mirtazapine 15 Mg Tab PO 15 mg HS ALTAGRACIA Administration Paroxetine HCl 20 mg 01/11/20 09:00 01/15/20 08:54 Paroxetine 20 Mg Tab PO 20 mg DAILY ALTAGRACIA Administration Sodium Chloride 10 ml 01/09/20 10:44 01/14/20 21:04 Flush - Normal Saline IVF 10 ml PRN PRN Administration Saline Flush - Exam General Appearance: awake alert Eye: PERRL ENT: normocephalic atraumatic Neck: supple Respiratory: CTAB Cardiovascular: RRR Gastrointestinal: soft Extremities: no cyanosis Skin: normal turgor Neurological: no new deficit, facial droop, hemiplegia Musculoskeletal: normal tone PSYCH: A&O x 3 Results - Labs Result Diagrams: 01/10/20 03:53 01/10/20 03:30 Lab results: WBC 6.7 thou/uL (4.8-10.8) 01/10/20 03:53 Hgb 10.2 g/dL (12.0-16.0) L 01/10/20 03:53 Hct 33.8 % (36.0-47.0) L 01/10/20 03:53 MCV 69.4 fL (78.0-98.0) L 01/10/20 03:53 Plt Count 358 thou/uL (130-400) 01/10/20 03:53 Neutrophils % 54.0 % (42.0-75.0) 01/10/20 03:53 Sodium 135 mmol/L (136-145) L 01/10/20 03:30 Potassium 3.9 mmol/L (3.5-5.1) 01/10/20 03:30 Chloride 102 mmol/L (98-107) 01/10/20 03:30 Carbon Dioxide 25 mmol/L (22-29) 01/10/20 03:30 BUN 13 mg/dL (7.0-18.7) 01/10/20 03:30 Creatinine 0.71 mg/dL (0.6-1.1) 01/10/20 03:30 Glucose 273 mg/dL (70-105) H 01/10/20 03:30 Calcium 8.7 mg/dL (7.8-10.44) 01/10/20 03:30 Total Bilirubin 0.5 mg/dL (0.2-1.2) 01/09/20 07:46 AST 27 U/L (5-34) 01/09/20 07:46 ALT 29 U/L (8-55) 01/09/20 07:46 Alkaline Phosphatase 118 U/L (40-110) H 01/09/20 07:46 Creatine Kinase 93 U/L (29-168) 01/09/20 07:46 Troponin I Less than 0.010 ng/mL (< 0.028) 01/09/20 07:46 Serum Total Protein 8.3 g/dL (6.0-8.3) 01/09/20 07:46 Albumin 4.1 g/dL (3.5-5.0) 01/09/20 07:46 Urine Ketones Negative mg/dL (Negative) 01/09/20 21:00 Urine Blood Trace (Negative) A 01/09/20 21:00 Urine Nitrite Negative (Negative) 01/09/20 21:00 Ur Leukocyte Esterase Negative Venus/uL (Negative) 01/09/20 21:00 Urine RBC 0-3 HPF (0-3) 01/09/20 21:00 Urine WBC 0-3 HPF (0-3) 01/09/20 21:00 Ur Squamous Epith Cells 0-3 HPF (0-3) 01/09/20 21:00 Urine Bacteria Rare-Few HPF (None Seen) 01/09/20 21:00 PN A/P (1) CVA (cerebral vascular accident) Code(s): I63.9 - CEREBRAL INFARCTION, UNSPECIFIED Status: Acute (2) DM type 2 (diabetes mellitus, type 2) Status: Chronic (3) Diabetes Code(s): E11.9 - TYPE 2 DIABETES MELLITUS WITHOUT COMPLICATIONS Status: Chronic (4) Hyperlipidemia Code(s): E78.5 - HYPERLIPIDEMIA, UNSPECIFIED Status: Chronic (5) Hypertension Code(s): I10 - ESSENTIAL (PRIMARY) HYPERTENSION Status: Chronic (6) Hypothyroidism Code(s): E03.9 - HYPOTHYROIDISM, UNSPECIFIED Status: Chronic (7) Obstructive sleep apnea Code(s): G47.33 - OBSTRUCTIVE SLEEP APNEA (ADULT) (PEDIATRIC) Status: Chronic - Plan Daily Plan: PT/OT, speech therapy 49 year old presented with focal right sided deficits. MRI brain consistent with acute infarction. Patient complains of painful muscle spasms, insomnia and right sided shaking. There was a concern about seizure like activity. EEG ordered to rule out cortical irritability is negative and spells are non- epileptic in nature most likely anxiety induced spells.. Gabapentin 200 mg bid started for muscle spasms. HCT reviewed and was positive for left basal ganglia hypodensity. CTA showed high-grade stenosis mid L left P1 segment. Consider CV surgery input. Telemetry Continue aspirin and high intensity statin for secondary stroke prevention. MRI brain reviewed and showed acute left basal ganglia infarction 2D Echo showed EF 60-65% with grade 1 diastolic dysfunction. No thrombus or PFO. Neurochecks every 4 hours. Continue home medications. Strict BP control. Strict control of BG. PT/OT/Speech Rehab screen. CM on board for discharge planning. Patient will be discharged today. Continue medical management per primary team. Case discussed with patient, sister and during MDR rounds.
--- NOTE | 2020-01-15 14:16 | EKG ---
Test Reason : Blood Pressure : / mmHG Vent. Rate : 060 BPM Atrial Rate : 060 BPM P-R Int : 162 ms QRS Dur : 088 ms QT Int : 448 ms P-R-T Axes : 053 005 041 degrees QTc Int : 448 ms Normal sinus rhythm ST abnormality, possible digitalis effect Abnormal ECG When compared with ECG of 09-JAN-2020 08:48, (Unconfirmed) Criteria for Septal infarct are no longer Present Confirmed by CHESTER HARDY M.D. ([id number]) on 01/15/2020 2:15:54 PM Referred By: DARNELL Confirmed By:CHESTER HARDY M.D.
--- NOTE | 2020-01-16 01:50 | DIS ---
DATE OF ADMISSION: 01/09/2020 DATE OF DISCHARGE: 01/15/2020 DISCHARGE DIAGNOSES: As of the followin. Cerebrovascular accident. 2. Diabetes, type 2. 3. Hyperlipidemia. 4. Hypertension. 5. Hypothyroidism. 6. Obstructive sleep apnea. HOSPITAL COURSE: The patient is a 49-year-old female, who initially presented to the hospital with complaints of right-sided weakness. She was noted to undergo a CTA, which did indicate some high-grade stenosis in the mid left P1 segment. At this time, she was given aspirin and was admitted to the hospital. She was seen by CV surgery. No intervention in regard to her findings on the CTA. The findings on the CTA were just short-segment high-grade stenosis involving the mid left P1 segment. Recommended recommendation from the CV Surgery in regard to that was to continue dual anti-platelet therapy for at least for short term. No intervention was noted and also recommended to control her blood sugars and lipids. The patient also had an EEG since she had panic anxiety attack. EEG was negative for any seizures. She also had an echocardiogram, which indicated an EF which is 65% with mild mitral regurgitation. She had a brain MRI, which indicated acute left basal ganglia infarct. The patient was then discharged to inpatient rehab. She will follow up with Neurology and primary care. HOME MEDICATIONS: Will be; 1. Aspirin 325. 2. Plavix 75. 3. Atorvastatin 40 mg. 4. Gabapentin 200 mg b.i.d. for some spasms. 5. Insulin 10 units every day. 6. Lisinopril 20 mg daily. 7. Paxil 20 mg daily. 8. Fenofibrate 54 daily. 9. Hydrochlorothiazide 25 mg daily. 10. Glipizide 5 mg b.i.d. 11. Metformin 1 tab daily. 12. Levothyroxine 25 mcg daily. PHYSICAL EXAMINATION: VITAL SIGNS: On discharge, 98.6, 77, 18, 100% on room air, 139/79. GENERAL: She is awake, alert, and oriented x3. Does not appear in distress. CV: S1, S2 present. No murmurs, rubs, or gallops. She does have weakness to her right upper and lower extremity. Again, she will be discharged to inpatient rehab and she will follow up with Neurology and primary care. Job ID: [id number]
== END 2020-01-15 14:14 | DRG 65 ==
LOC: ERS 07:39 → ERHOLD 09:40 → 2SE 14:50
PROVIDERS: ADMIT Family Medicine; ATTEND Family Medicine
DX: I63.89 Other cerebral infarction (principal); G81.91 Hemiplegia, unspecified affecting right dominant side; R40.2412 Glasgow coma scale score 13-15, at arrival to emergency department; R29.707 NIHSS score 7; E03.9 Hypothyroidism, unspecified; G47.00 Insomnia, unspecified; E11.9 Type 2 diabetes mellitus without complications; F41.9 Anxiety disorder, unspecified; I10 Essential (primary) hypertension; M62.838 Other muscle spasm; D64.9 Anemia, unspecified; Z20.828 Contact with and (suspected) exposure to other viral communicable diseases; F41.0 Panic disorder [episodic paroxysmal anxiety]; Z90.49 Acquired absence of other specified parts of digestive tract; Z79.84 Long term (current) use of oral hypoglycemic drugs; Z79.890 Hormone replacement therapy; Z87.891 Personal history of nicotine dependence
CPT/HCPCS: 36415; 36416; 36600; 70450; 70496; 70498; 70551; 80048; 80053; 80061; 81001; 82550; 82607; 82728; 82746; 83036; 83540; 83550; 83735; 84100; 84443; 84484; 85025; 85060; 85610; 85730; 87324; 87449; 87635; 93005; 93010; 93306; 95712; 95816; 95819; 95957; J1650; J1815; J2060; J3475; Q0177; Q9967; U0003

== ENCOUNTER 2020-02-22 13:55 | Emergency (ER) | payer MEDICARE, MEDICAID ==
[2020-02-22 15:33] LABS: #Eosinphils 0.6 thou/uL (0.0-0.7); #Lymphocytes 2.4 thou/uL (1.20-3.40); #Monocytes 0.5 thou/uL (0.11-0.59); #Neutrophils 6.5 thou/uL (1.40-6.50); %Basophils 0.2 % (0.0-1.0); %Eosinophils 6.2 % (0.0-10.0); %Lymphocytes 23.6 % (21.0-51.0); %Monocytes 5.2 % (0.0-10.0); %Neutrophils 64.8 % (42.0-75.0); Hemoglobin 9.4 g/dL (12.0-16.0); Mean Corpuscular HGB CONC 31.3 g/dL (32.0-36.0); Mean Corpuscular Hemoglobin 22.3 pg (27.0-31.0); Mean Corpuscular Volume 71.1 fL (78.0-98.0); Mean Platelet Volume 9.4 fL (7.4-10.4); Platelet Count 505 thou/uL (130-400); RBC Distribution Width 17.5 % (11.5-14.5)
[2020-02-22 15:56] LABS: ALT (SGPT) 25 U/L (8-55); AST (SGOT) 25 U/L (5-34); Albumin 4.1 g/dL (3.5-5.0); Alkaline Phosphatase 112 U/L (40-110); Anion Gap 15 mmol/L (10-20); BUN (Urea Nitrogen) 14 mg/dL (7.0-18.7); Bilirubin, Total 0.5 mg/dL (0.2-1.2); Calc. Creatinine Clearance 0 mL/min (70-130); Calcium 9.7 mg/dL (7.8-10.44); Carbon Dioxide 25 mmol/L (22-29); Chloride 104 mmol/L (98-107); Estimated GFR-MDRD 78; Glucose 111 mg/dL (70-105); Potassium 4.2 mmol/L (3.5-5.1); Protein, Total 8.1 g/dL (6.0-8.3); Sodium 140 mmol/L (136-145)
--- NOTE | 2020-02-22 18:03 | CT ---
CT HEAD WITHOUT CONTRAST: 02/22/20 INDICATIONS: Pain and nose bleed. Recent history of stroke. Correlation made to prior head CT of 01/09/20 and MRI of 01/09/20. The MRI at that time revealed acute left basal ganglia infarct involving the left external capsule an d extending superiorly into the left periventricular white matter. FINDINGS: Ventricles have normal size and position. There is abnormal lucency in the left basal ganglia and ext ending superiorly into the left periventricular white matter at the site of the previous noted infarc t on 01/09/20. Today's findings indicate expected evolution with volume loss at this time. There is no evidence of acute mass or hemorrhage. No evidence of acute infarct. The paranasal sinuses appear clear. IMPRESSION: No acute finding. POS: AGW
[2020-02-22 18:56] LABS: Bacteria/HPF 2+ HPF (None Seen); Bilirubin Negative (Negative); Blood, Urine Negative (Negative); Clarity Clear (Clear); Glucose, Urine (Dipstick) Normal (Negative); Ketone, Urine Negative (Negative); Leukocyte 500 Leu/uL (Negative); Nitrite Negative (Negative); Protein, Urine (Dipstick) 10 mg/dL (Neg-Trace); Specific Gravity, Urine 1.013 (1.002-1.036); Squamous Epithelial 0-3 HPF (0-3); Urobilinogen Normal mg/dL (Less than 2)
== END 2020-02-22 18:43 | disposition home or self-care (01) ==
LOC: ERS 13:55
DX: R51.9 Headache, unspecified (principal); E11.9 Type 2 diabetes mellitus without complications; E78.5 Hyperlipidemia, unspecified; E05.90 Thyrotoxicosis, unspecified without thyrotoxic crisis or storm; I10 Essential (primary) hypertension; G47.30 Sleep apnea, unspecified; Z87.891 Personal history of nicotine dependence; Z79.899 Other long term (current) drug therapy; Z79.4 Long term (current) use of insulin
CPT/HCPCS: 36415; 70450; 80053; 81003; 81015; 85025

== ENCOUNTER 2020-06-28 14:14 | Emergency (ER) | payer MEDICAID, MEDICARE ==
[~2020-06-28 14:14] MED LIST: Iopamidol-370 76% 500 ML 1 ML ONE
[2020-06-28 15:15] LABS: #Eosinphils 0.3 thou/uL (0.0-0.7); #Lymphocytes 2.9 thou/uL (1.20-3.40); #Monocytes 0.4 thou/uL (0.11-0.59); #Neutrophils 10.9 thou/uL (1.40-6.50); %Lymphocytes 20.3 % (21.0-51.0); %Monocytes 2.4 % (0.0-10.0); %Neutrophils 75.3 % (42.0-75.0); Hemoglobin 6.4 g/dL (12.0-16.0); Mean Corpuscular HGB CONC 30.3 g/dL (32.0-36.0); Mean Corpuscular Hemoglobin 21.7 pg (27.0-31.0); Mean Corpuscular Volume 71.6 fL (78.0-98.0); Mean Platelet Volume 8.8 fL (7.4-10.4); Platelet Count 375 thou/uL (130-400); RBC Distribution Width 17.5 % (11.5-14.5); Red Blood Cell (RBC) Count 2.97 mill/uL (4.20-5.40); White Blood Cell (WBC) Count 14.5 thou/uL (4.8-10.8)
[2020-06-28] MEDS ORDERED: Acetaminophen 500 MG TAB ONE (15:27)
[2020-06-28 15:31] LABS: Anion Gap 19 mmol/L (10-20); Anisocytosis SLIGHT = 6-15 cells (100X) (0-5/hpf); BUN (Urea Nitrogen) 17 mg/dL (7.0-18.7); Calc. Creatinine Clearance 0 mL/min (70-130); Calcium 9.2 mg/dL (7.8-10.44); Carbon Dioxide 22 mmol/L (22-29); Chloride 98 mmol/L (98-107); Glucose 292 mg/dL (70-105); Hypochromia SLIGHT = 6-15 cells (100X) (0-5/hpf); MDiff Complete? YES; Microcytosis SLIGHT = 6-15 cells (100X) (0-5/hpf); Ovalocytes SLIGHT = 2-5 cells (100X) (0-1/hpf); Platelet Morphology Comment Appears Adequate; Polychromasia MODERATE = 3-4 cells (100X) (0-2/hpf); Potassium 4.1 mmol/L (3.5-5.1); Sodium 135 mmol/L (136-145)
== END 2020-06-28 19:23 | disposition home or self-care (01) ==
LOC: ERS 14:14
DX: N93.8 Other specified abnormal uterine and vaginal bleeding (principal); D64.9 Anemia, unspecified; E05.90 Thyrotoxicosis, unspecified without thyrotoxic crisis or storm; E78.5 Hyperlipidemia, unspecified; I10 Essential (primary) hypertension; E11.40 Type 2 diabetes mellitus with diabetic neuropathy, unspecified; G47.30 Sleep apnea, unspecified; Z79.4 Long term (current) use of insulin; Z79.899 Other long term (current) drug therapy; Z87.891 Personal history of nicotine dependence
CPT/HCPCS: 36415; 36430; 74177; 80048; 85025; 86850; 86900; 86901; P9016; Q9967

== ENCOUNTER 2020-07-11 14:40 | Emergency (ER) | payer MEDICARE, MEDICAID ==
[2020-07-11 15:10] LABS: Hemoglobin 6.9 g/dL (12.0-16.0); Mean Corpuscular HGB CONC 30.7 g/dL (32.0-36.0); Mean Corpuscular Hemoglobin 23.3 pg (27.0-31.0); Mean Platelet Volume 8.6 fL (7.4-10.4); Platelet Count 539 thou/uL (130-400); RBC Distribution Width 19.5 % (11.5-14.5); Red Blood Cell (RBC) Count 2.94 mill/uL (4.20-5.40); White Blood Cell (WBC) Count 17.1 thou/uL (4.8-10.8)
[2020-07-11 15:35] LABS: ALT (SGPT) 13 U/L (8-55); AST (SGOT) 12 U/L (5-34); Albumin 3.9 g/dL (3.5-5.0); Alkaline Phosphatase 112 U/L (40-110); Anion Gap 16 mmol/L (10-20); BUN (Urea Nitrogen) 21 mg/dL (7.0-18.7); Bilirubin, Total 0.5 mg/dL (0.2-1.2); Calc. Creatinine Clearance 0 mL/min (70-130); Calcium 8.9 mg/dL (7.8-10.44); Carbon Dioxide 22 mmol/L (22-29); Chloride 106 mmol/L (98-107); Globulin 2.9 g/dL (2.4-3.5); Glucose 246 mg/dL (70-105); Potassium 4.7 mmol/L (3.5-5.1); Protein, Total 6.8 g/dL (6.0-8.3); Sodium 139 mmol/L (136-145)
[2020-07-11 15:37] LABS: Anisocytosis MODERATE=16-30 cells (100X) (0-5/hpf); Elliptocytes SLIGHT = 2-5 cells (100X) (0-1/hpf); Eosinophils 2 % (0-10); Hypochromia SLIGHT = 6-15 cells (100X) (0-5/hpf); Lymphocytes 22 % (21-51); MDiff Complete? YES; Microcytosis SLIGHT = 6-15 cells (100X) (0-5/hpf); Monocytes 5 % (0-10); Neutrophil 70 % (42-75); Platelet Morphology Comment Appears Increased; Polychromasia MODERATE = 3-4 cells (100X) (0-2/hpf)
[2020-07-11 15:49] LABS: Bacteria/HPF None Seen HPF (None Seen); Bilirubin Negative (Negative); Blood, Urine Trace (Negative); Clarity Clear (Clear); Glucose, Urine (Dipstick) Normal (Negative); Ketone, Urine Negative (Negative); Leukocyte Negative Leu/uL (Negative); Nitrite Negative (Negative); Protein, Urine (Dipstick) 10 mg/dL (Neg-Trace); Specific Gravity, Urine 1.024 (1.002-1.036); Squamous Epithelial None Seen HPF (0-3); WBC/HPF 0-3 HPF (0-3); pH, Urine 5.5 (5.0-9.0)
[2020-07-11 15:54] LABS: INR-International Normal Ratio 1.1; PTT 27.8 sec (22.9-36.1); Prothrombin Time 14.3 sec (12.0-14.7)
== END 2020-07-11 18:58 | disposition short-term general hospital (02) ==
LOC: ERS 14:40
DX: N93.9 Abnormal uterine and vaginal bleeding, unspecified (principal); E11.9 Type 2 diabetes mellitus without complications; E78.5 Hyperlipidemia, unspecified; I10 Essential (primary) hypertension; Z87.891 Personal history of nicotine dependence; Z79.4 Long term (current) use of insulin; Z79.899 Other long term (current) drug therapy
CPT/HCPCS: 36430; 76856; 80053; 81003; 81015; 84443; 85025; 85610; 85730; 86850; 86900; 86901

== ENCOUNTER 2020-10-06 22:47 | Emergency (ER) | payer MEDICARE, MEDICAID ==
[2020-10-06 23:27] LABS: Bilirubin Negative (Negative); Blood, Urine Large (Negative); Glucose, Urine (Dipstick) Negative (Negative); Ketone, Urine Trace mg/dL (Negative); Leukocyte Negative (Negative); Nitrite Positive (Negative); Protein, Urine (Dipstick) Trace mg/dL (Neg-Trace); pH, Urine 5.5 (5.0-9.0)
[2020-10-06 23:33] LABS: Bacteria/HPF None Seen HPF (None Seen); Clarity Opaque (Clear); RBC/HPF Greater than 50 HPF (0-3); Squamous Epithelial 0-3 HPF (0-3)
[2020-10-06 23:34] LABS: Specific Gravity, Urine 1.025 (1.002-1.036)
== END 2020-10-07 00:10 | disposition home or self-care (01) ==
LOC: ERS 22:47
DX: N39.0 Urinary tract infection, site not specified (principal); E78.5 Hyperlipidemia, unspecified; I10 Essential (primary) hypertension; E11.40 Type 2 diabetes mellitus with diabetic neuropathy, unspecified; E05.90 Thyrotoxicosis, unspecified without thyrotoxic crisis or storm; Z86.73 Personal history of transient ischemic attack (TIA), and cerebral infarction without residual deficits; Z87.891 Personal history of nicotine dependence; Z79.84 Long term (current) use of oral hypoglycemic drugs; Z79.02 Long term (current) use of antithrombotics/antiplatelets; Z79.899 Other long term (current) drug therapy
CPT/HCPCS: 81003; 81015; 87086; 99283

== ENCOUNTER 2020-11-02 14:32 | Emergency (ER) | payer MEDICARE, MEDICAID ==
[2020-11-02] MEDS ORDERED: Oxymetazoline HCl 0.05% (30 ML BOT) ONE (15:09)
[2020-11-02 15:54] LABS: #Basophils 0.1 thou/uL (0.0-0.2); #Eosinphils 0.2 thou/uL (0.0-0.7); #Lymphocytes 2.6 thou/uL (1.20-3.40); #Monocytes 0.8 thou/uL (0.11-0.59); #Neutrophils 10.3 thou/uL (1.40-6.50); %Basophils 0.6 % (0.0-1.0); %Eosinophils 1.5 % (0.0-10.0); %Lymphocytes 18.5 % (21.0-51.0); %Monocytes 5.6 % (0.0-10.0); %Neutrophils 73.8 % (42.0-75.0); Hemoglobin 9.2 g/dL (12.0-16.0); Mean Corpuscular HGB CONC 32.5 g/dL (32.0-36.0); Mean Corpuscular Hemoglobin 26.7 pg (27.0-31.0); Mean Platelet Volume 9.2 fL (7.4-10.4); Platelet Count 244 thou/uL (130-400); RBC Distribution Width 15.8 % (11.5-14.5); Red Blood Cell (RBC) Count 3.46 mill/uL (4.20-5.40); White Blood Cell (WBC) Count 13.9 thou/uL (4.8-10.8)
[2020-11-02] MEDS ORDERED: HYDROcodone/Acetaminophen 5/325 mg Tablet ONE (15:58)
[2020-11-02] MEDS ORDERED: Ondansetron ODT 4 MG TAB ONE (15:58)
== END 2020-11-02 16:31 | disposition home or self-care (01) ==
LOC: ERS 14:32
DX: R04.0 Epistaxis (principal); I10 Essential (primary) hypertension; E78.5 Hyperlipidemia, unspecified; E11.40 Type 2 diabetes mellitus with diabetic neuropathy, unspecified; Z86.73 Personal history of transient ischemic attack (TIA), and cerebral infarction without residual deficits; Z87.891 Personal history of nicotine dependence
CPT/HCPCS: 30903; 36415; 85025; Q0162

== ENCOUNTER 2020-11-28 22:57 | Emergency (ER) | payer MEDICARE, MEDICAID ==
[2020-11-29] MEDS ORDERED: Oxymetazoline HCl 0.05% (30 ML BOT) ONE (00:30)
== END 2020-11-29 01:09 | disposition home or self-care (01) ==
LOC: ERS 22:57
DX: R04.0 Epistaxis (principal); E11.40 Type 2 diabetes mellitus with diabetic neuropathy, unspecified; E05.90 Thyrotoxicosis, unspecified without thyrotoxic crisis or storm; E78.5 Hyperlipidemia, unspecified; I10 Essential (primary) hypertension; G47.30 Sleep apnea, unspecified; Z79.84 Long term (current) use of oral hypoglycemic drugs; Z79.899 Other long term (current) drug therapy
CPT/HCPCS: 30903

== ENCOUNTER 2021-02-06 15:40 | Inpatient (IN) | payer MEDICARE, MEDICAID ==
[2021-02-06 17:43] LABS: Bilirubin Negative (Negative); Blood, Urine 2+ (Negative); Clarity Turbid (Clear); Glucose, Urine (Dipstick) Normal (Negative); Ketone, Urine Negative (Negative); Leukocyte Negative Leu/uL (Negative); Nitrite Negative (Negative); Protein, Urine (Dipstick) 10 mg/dL (Neg-Trace); Urobilinogen Normal mg/dL (Less than 2)
[2021-02-06] MEDS ORDERED: Meclizine HCl 25 MG TAB ONE (17:44)
[2021-02-06 17:56] LABS: Bacteria/HPF 1+ HPF (None Seen)
[2021-02-06 17:57] LABS: #Eosinphils 0.3 thou/uL (0.0-0.7); #Lymphocytes 2.5 thou/uL (1.20-3.40); #Monocytes 0.6 thou/uL (0.11-0.59); #Neutrophils 5.1 thou/uL (1.40-6.50); %Basophils 0.2 % (0.0-1.0); %Lymphocytes 29.5 % (21.0-51.0); %Monocytes 7.1 % (0.0-10.0); %Neutrophils 59.2 % (42.0-75.0); Hemoglobin 11.3 g/dL (12.0-16.0); Mean Corpuscular HGB CONC 32.7 g/dL (32.0-36.0); Mean Corpuscular Hemoglobin 26.3 pg (27.0-31.0); Mean Corpuscular Volume 80.3 fL (78.0-98.0); Mean Platelet Volume 8.7 fL (7.4-10.4); Platelet Count 304 thou/uL (130-400); Red Blood Cell (RBC) Count 4.31 mill/uL (4.20-5.40); White Blood Cell (WBC) Count 8.5 thou/uL (4.8-10.8)
[2021-02-06 17:57] LABS: WBC/HPF 0-3 HPF (0-3)
[2021-02-06 18:37] LABS: ALT (SGPT) 34 U/L (8-55); AST (SGOT) 46 U/L (5-34); Albumin 3.6 g/dL (3.5-5.0); Alkaline Phosphatase 126 U/L (40-110); Anion Gap 19 mmol/L (10-20); BUN (Urea Nitrogen) 16 mg/dL (7.0-18.7); Bilirubin, Total 0.5 mg/dL (0.2-1.2); Calc. Creatinine Clearance 0 mL/min (70-130); Calcium 9.5 mg/dL (7.8-10.44); Carbon Dioxide 19 mmol/L (22-29); Chloride 107 mmol/L (98-107); Globulin 3.4 g/dL (2.4-3.5); Glucose 156 mg/dL (70-105); Potassium 5.1 mmol/L (3.5-5.1); Sodium 140 mmol/L (136-145)
[2021-02-06] MEDS ORDERED: hydrALAZINE 20 MG/ML VIAL SLOW IVP PRN (22:46)
[2021-02-06] MEDS ORDERED: Ondansetron PF 4 MG/2 ML Vial IVP PRN (22:46)
[2021-02-06] MEDS ORDERED: Ondansetron ODT 4 MG TAB PO PRN (22:46)
[2021-02-06] MEDS ORDERED: Acetaminophen 650 MG Suppository PR PRN (22:46)
[2021-02-07] MEDS ORDERED: Dextrose 5% in Water 1,000 ML IV PRN (03:25)
[2021-02-07] MEDS ORDERED: Dextrose 50% Abboject 50 ML SYRINGE SLOW IVP PRN (03:25)
[2021-02-07 04:17] LABS: SARS-CoV-2 NAA Rapid Test Not Detected (NotDetected)
[2021-02-07 04:45] LABS: Cardiac Risk 4.7 (Less than 4.5)
[2021-02-07] MEDS ORDERED: Enoxaparin Sodium 40 MG/0.4 ML SYRINGE ONE (08:57)
[2021-02-07] MEDS: Enoxaparin Sodium 40 MG/0.4 ML SYRINGE SC SCH (08:59)
[2021-02-07] MEDS ORDERED: Clopidogrel Bisulfate 75 MG TAB ONE (11:07)
[2021-02-07] MEDS: Clopidogrel Bisulfate 75 MG TAB PO SCH (11:25)
[2021-02-07] MEDS: busPIRone HCl 5 MG TAB PO SCH ×2 (11:25→22:05)
[2021-02-07] MEDS: PARoxetine 20 MG TAB PO SCH (11:25)
[2021-02-07 17:28] VITALS: BMI 42.3
[2021-02-07] MEDS: Gabapentin 400 MG CAP PO SCH ×2 (18:12→22:04)
[2021-02-07] MEDS ORDERED: FLU VACC QS2021-22(6MOS UP)/PF 60 MCG/0.5 ML SYRINGE IM ONE (18:15)
[2021-02-07] MEDS: Acetaminophen 325 MG TAB PO PRN (18:15)
[2021-02-07] MEDS: Atorvastatin Calcium 40 MG TAB PO SCH (22:05)
[2021-02-07] MEDS: HumaLOG 300 UNITS/3 ML VIAL SC PRN (22:05)
[2021-02-08] MEDS ORDERED: Levothyroxine Sodium 25 MCG TAB PO SCH (06:00)
[2021-02-08 06:14] LABS: Anion Gap 14 mmol/L (10-20); BUN (Urea Nitrogen) 12 mg/dL (7.0-18.7); Calc. Creatinine Clearance 154 mL/min (70-130); Calcium 8.8 mg/dL (7.8-10.44); Carbon Dioxide 25 mmol/L (22-29); Chloride 106 mmol/L (98-107); Glucose 185 mg/dL (70-105); Potassium 3.7 mmol/L (3.5-5.1); Sodium 141 mmol/L (136-145)
[2021-02-08] MEDS: Gabapentin 400 MG CAP PO SCH ×3 (08:23→20:58)
[2021-02-08] MEDS: Clopidogrel Bisulfate 75 MG TAB PO SCH (08:23)
[2021-02-08] MEDS: PARoxetine 20 MG TAB PO SCH (08:23)
[2021-02-08] MEDS: Enoxaparin Sodium 40 MG/0.4 ML SYRINGE SC SCH (08:24)
[2021-02-08] MEDS: busPIRone HCl 5 MG TAB PO SCH ×2 (10:12→20:57)
[2021-02-08] MEDS: Acetaminophen 325 MG TAB PO PRN ×2 (13:17→18:38)
[2021-02-08] MEDS: HumaLOG 300 UNITS/3 ML VIAL SC PRN ×3 (13:57→20:58)
[2021-02-08] MEDS ORDERED: hydrALAZINE 20 MG/ML VIAL SLOW IVP PRN (15:21)
[2021-02-08] MEDS ORDERED: Lisinopril 20 MG TAB PO SCH (15:30)
[2021-02-08] MEDS ORDERED: Hydrochlorothiazide 25 MG TAB PO SCH (15:30)
[2021-02-08] MEDS: Atorvastatin Calcium 40 MG TAB PO SCH (20:58)
[2021-02-09] MEDS: HumaLOG 300 UNITS/3 ML VIAL SC PRN ×2 (05:34→12:13)
[2021-02-09] MEDS ORDERED: Levothyroxine Sodium 25 MCG TAB PO SCH (06:00)
[2021-02-09] MEDS: busPIRone HCl 5 MG TAB PO SCH (08:11)
[2021-02-09] MEDS: Gabapentin 400 MG CAP PO SCH ×2 (08:11→15:34)
[2021-02-09] MEDS: PARoxetine 20 MG TAB PO SCH (08:12)
[2021-02-09] MEDS: Clopidogrel Bisulfate 75 MG TAB PO SCH (08:13)
[2021-02-09] MEDS ORDERED: Lisinopril 20 MG TAB PO SCH (09:00)
[2021-02-09] MEDS ORDERED: Hydrochlorothiazide 25 MG TAB PO SCH (09:00)
[2021-02-09 12:31] VITALS: BP 170/88; TEMP 98.6
== END 2021-02-09 16:05 | disposition home or self-care (01) | DRG 305 ==
LOC: ERS 15:40 → ERHOLD 19:09 → 3SE 02-07 14:32 → OBSVTOIN 02-08 15:07
PROVIDERS: ADMIT Family Medicine; ATTEND Family Medicine
DX: I16.1 Hypertensive emergency (principal); I69.351 Hemiplegia and hemiparesis following cerebral infarction affecting right dominant side; I16.0 Hypertensive urgency; E03.9 Hypothyroidism, unspecified; G47.419 Narcolepsy without cataplexy; E78.5 Hyperlipidemia, unspecified; R20.2 Paresthesia of skin; G47.33 Obstructive sleep apnea (adult) (pediatric); F41.1 Generalized anxiety disorder; Z20.822 Contact with and (suspected) exposure to COVID-19; E11.42 Type 2 diabetes mellitus with diabetic polyneuropathy; F32.A Depression, unspecified; Z87.891 Personal history of nicotine dependence; Z79.899 Other long term (current) drug therapy; Z79.4 Long term (current) use of insulin; Z90.49 Acquired absence of other specified parts of digestive tract; Z90.710 Acquired absence of both cervix and uterus
CPT/HCPCS: 36415; 36416; 70450; 70551; 80048; 80053; 80061; 81003; 81015; 83605; 83880; 84484; 85025; 93005; 93306; 93880; 96372; 96374; G0378; J0360; J1650; J1815; U0002

== ENCOUNTER 2021-03-26 21:41 | Emergency (ER) | payer MEDICARE, MEDICAID ==
[2021-03-26] MEDS ORDERED: Oxymetazoline HCl 0.05% (30 ML BOT) ONE (22:38)
[2021-03-27] MEDS ORDERED: Tranexamic Acid 1,000 MG/10 ML VIAL ONE (00:17)
== END 2021-03-27 00:51 | disposition home or self-care (01) ==
LOC: ERS 21:41
DX: R04.0 Epistaxis (principal); I10 Essential (primary) hypertension; E11.9 Type 2 diabetes mellitus without complications; E03.9 Hypothyroidism, unspecified; E78.5 Hyperlipidemia, unspecified; Z86.73 Personal history of transient ischemic attack (TIA), and cerebral infarction without residual deficits; Z87.891 Personal history of nicotine dependence; Z79.84 Long term (current) use of oral hypoglycemic drugs; Z79.899 Other long term (current) drug therapy
CPT/HCPCS: 30905

== ENCOUNTER 2021-05-07 15:01 | Outpatient (CLI) | payer MEDICARE, MEDICAID | END 2021-05-07 15:02 | disposition home or self-care (01) | LOC: DTY/OP 15:01 | PROVIDERS: ATTEND Surgery | DX: E11.9 Type 2 diabetes mellitus without complications (principal); E66.01 Morbid (severe) obesity due to excess calories | CPT/HCPCS: 97802 ==

== ENCOUNTER 2021-05-11 15:01 | Emergency (ER) | payer MEDICARE, MEDICAID | END 2021-05-11 18:00 | disposition home or self-care (01) | LOC: ERS 15:01 | DX: R04.0 Epistaxis (principal); E11.9 Type 2 diabetes mellitus without complications; E05.90 Thyrotoxicosis, unspecified without thyrotoxic crisis or storm; I10 Essential (primary) hypertension; E78.5 Hyperlipidemia, unspecified; Z86.73 Personal history of transient ischemic attack (TIA), and cerebral infarction without residual deficits; Z87.891 Personal history of nicotine dependence | CPT/HCPCS: 30903 ==

== ENCOUNTER 2021-06-06 10:26 | Outpatient (CLI) | payer MEDICARE, OTHER ==
[2021-06-06 11:12] LABS: #Basophils 0.1 10x3/uL (0.0-0.2); #Eosinphils 0.4 10x3/uL (0.0-0.5); #Monocytes 0.4 10x3/uL (0.0-1.1); #Neutrophils 6.5 10x3/uL (1.5-8.4); %Basophils 0.6 % (0.0-2.0); %Eosinophils 4.5 % (0.0-6.0); %Lymphocytes 21.4 % (18.0-47.0); %Monocytes 4.6 % (0.0-10.0); %Neutrophils 68.4 % (40.0-75.0); Hemoglobin 11.1 g/dL (12.0-15.5); Mean Corpuscular HGB CONC 31.1 g/dL (32.0-36.0); Mean Corpuscular Hemoglobin 26.1 pg (27.0-33.0); Mean Platelet Volume 10.5 fl (7.4-10.4); Platelet Count 302 10x3/uL (150-450); RBC Distribution Width 17.2 % (11.5-14.5); Red Blood Cell (RBC) Count 4.25 10x6/uL (3.90-5.03); White Blood Cell (WBC) Count 9.5 10x3/uL (3.5-10.5)
[2021-06-06 11:32] LABS: ALT (SGPT) 22 U/L (8-55); AST (SGOT) 25 U/L (5-34); Albumin 4.1 g/dL (3.5-5.0); Alkaline Phosphatase 115 U/L (40-110); Anion Gap 17 mmol/L (10-20); BUN (Urea Nitrogen) 16 mg/dL (7.0-18.7); Bilirubin, Total 0.9 mg/dL (0.2-1.2); Calc. Creatinine Clearance 0 mL/min (70-130); Carbon Dioxide 23 mmol/L (22-29); Chloride 101 mmol/L (98-107); Globulin 2.9 g/dL (2.4-3.5); Glucose 326 mg/dL (70-105); Potassium 4.4 mmol/L (3.5-5.1); Sodium 137 mmol/L (136-145)
[2021-06-06 18:46] LABS: SARS-CoV-2 PCR by NAA Not Detected (NotDetected)
== END 2021-06-06 10:27 | disposition home or self-care (01) ==
LOC: LABBT 10:26
PROVIDERS: ATTEND Internal Medicine Cardiovascular Disease
DX: Z01.812 Encounter for preprocedural laboratory examination (principal); I20.9 Angina pectoris, unspecified; Z20.822 Contact with and (suspected) exposure to COVID-19
CPT/HCPCS: 80053; 85025; U0003; U0005

== ENCOUNTER 2021-06-11 06:02 | Observation (INO) | payer MEDICARE, OTHER ==
[2021-06-06 14:00] VITALS: BMI 46.9
[2021-06-11] MEDS ORDERED: Lidocaine 1% (PF) 30 ML VIAL ONE (08:12)
[2021-06-11] MEDS ORDERED: Midazolam HCl 2 mg/2 ml Vial ONE (08:14)
[2021-06-11] MEDS ORDERED: Fentanyl 100 MCG/2 ML VIAL ONE (08:14)
[2021-06-11] MEDS ORDERED: Iopamidol 370 76% 50 ML VIAL FS ONE (08:37)
[2021-06-11] MEDS ORDERED: Iopamidol 370 76% 100 ML VIAL ONE (08:37)
[2021-06-11] MEDS ORDERED: Metoprolol Tartrate 5 MG/5 ML VIAL ONE (08:57)
[2021-06-11] MEDS ORDERED: Heparin 10,000 UNITS/ 10 ML VIAL ONE ×2 (09:11→10:35)
[2021-06-11] MEDS ORDERED: Aspirin Chewable 81 MG TAB ONE (09:19)
[2021-06-11] MEDS ORDERED: Nitroglycerin 100MG/250ML BOT 250 ML ONE (09:20)
[2021-06-11] MEDS ORDERED: Clopidogrel Bisulfate 300 MG TAB ONE (10:41)
[2021-06-11] MEDS ORDERED: Fentanyl 250 MCG/5 ML VIAL ONE (11:27)
[2021-06-11] MEDS ORDERED: traMADol HCl 50 MG TAB PO PRN (11:46)
[2021-06-11] MEDS ORDERED: Fentanyl 100 MCG/2 ML VIAL SLOW IVP PRN (11:49)
[2021-06-11] MEDS ORDERED: Sodium Chloride 0.9% 1,000 ML IV SCH (12:00)
[2021-06-11] MEDS ORDERED: Dextrose 50% Abboject 50 ML SYRINGE IVP PRN (18:45)
[2021-06-11] MEDS ORDERED: Dextrose 5% in Water 1,000 ML IV PRN (18:45)
[2021-06-11] MEDS ORDERED: HumaLOG 300 UNITS/3 ML VIAL SC PRN (18:45)
[2021-06-11] MEDS ORDERED: Cyclobenzaprine 10 MG TAB PO PRN (19:03)
[2021-06-11] MEDS ORDERED: Bisacodyl 10 MG SUPP PR PRN (19:17)
[2021-06-11] MEDS: Gabapentin 400 MG CAP PO SCH (20:11)
[2021-06-11] MEDS: Lisinopril 20 MG TAB PO SCH (20:12)
[2021-06-11] MEDS: HumaLOG 300 UNITS/3 ML VIAL SC PRN ×2 (20:13→22:33)
[2021-06-11] MEDS: hydrALAZINE 25 MG TAB PO SCH (20:13)
[2021-06-11] MEDS: busPIRone HCl 5 MG TAB PO SCH (20:13)
[2021-06-11] MEDS ORDERED: Atorvastatin Calcium 40 MG TAB PO SCH (21:00)
[2021-06-11] MEDS ORDERED: Lantus 1000 UNITS/10 ML VIAL SC SCH ×2 (21:00)
[2021-06-11] MEDS ORDERED: busPIRone HCl 5 MG TAB PO SCH (21:00)
[2021-06-11] MEDS: Ibuprofen 600 MG TAB PO SCH (21:13)
[2021-06-12 04:56] LABS: #Eosinphils 0.3 thou/uL (0.0-0.7); #Lymphocytes 1.4 thou/uL (1.20-3.40); #Monocytes 0.5 thou/uL (0.11-0.59); #Neutrophils 4.2 thou/uL (1.40-6.50); %Basophils 0.6 % (0.0-1.0); %Eosinophils 4.5 % (0.0-10.0); %Lymphocytes 21.4 % (21.0-51.0); %Monocytes 7.7 % (0.0-10.0); %Neutrophils 65.8 % (42.0-75.0); Hemoglobin 10.3 g/dL (12.0-16.0); Mean Corpuscular HGB CONC 32.7 g/dL (32.0-36.0); Mean Corpuscular Hemoglobin 27.4 pg (27.0-31.0); Mean Corpuscular Volume 83.6 fL (78.0-98.0); Mean Platelet Volume 8.9 fL (7.4-10.4); Platelet Count 275 thou/uL (130-400); RBC Distribution Width 16.7 % (11.5-14.5); Red Blood Cell (RBC) Count 3.77 mill/uL (4.20-5.40); White Blood Cell (WBC) Count 6.3 thou/uL (4.8-10.8)
[2021-06-12 05:18] LABS: ALT (SGPT) 19 U/L (8-55); AST (SGOT) 20 U/L (5-34); Albumin 3.4 g/dL (3.5-5.0); Alkaline Phosphatase 92 U/L (40-110); Anion Gap 11 mmol/L (10-20); BUN (Urea Nitrogen) 12 mg/dL (7.0-18.7); Bilirubin, Total 0.6 mg/dL (0.2-1.2); Calc. Creatinine Clearance 109 mL/min (70-130); Calcium 8.7 mg/dL (7.8-10.44); Carbon Dioxide 27 mmol/L (22-29); Chloride 102 mmol/L (98-107); Globulin 2.7 g/dL (2.4-3.5); Glucose 468 mg/dL (70-105); Potassium 3.8 mmol/L (3.5-5.1); Protein, Total 6.1 g/dL (6.0-8.3); Sodium 136 mmol/L (136-145)
[2021-06-12] MEDS: Ibuprofen 600 MG TAB PO SCH (05:48)
[2021-06-12] MEDS ORDERED: Levothyroxine Sodium 25 MCG TAB PO SCH ×2 (06:00)
[2021-06-12] MEDS ORDERED: Fenofibrate 48 MG TAB PO SCH (07:30)
[2021-06-12] MEDS ORDERED: Alogliptin 25 MG TAB PO SCH (08:00)
[2021-06-12] MEDS ORDERED: metFORMIN 500 MG TAB PO SCH (08:00)
[2021-06-12] MEDS ORDERED: Clopidogrel Bisulfate 75 MG TAB PO SCH ×2 (09:00)
[2021-06-12] MEDS ORDERED: Lisinopril 20 MG TAB PO SCH ×2 (09:00)
[2021-06-12] MEDS ORDERED: PARoxetine 20 MG TAB PO SCH ×2 (09:00)
[2021-06-12] MEDS ORDERED: Hydrochlorothiazide 25 MG TAB PO SCH (09:00)
[2021-06-12] MEDS ORDERED: Aspirin 81 mg Enteric Coated Tablet PO SCH (09:00)
[2021-06-12] MEDS: Gabapentin 400 MG CAP PO SCH (09:29)
[2021-06-12] MEDS: busPIRone HCl 5 MG TAB PO SCH (09:29)
[2021-06-12] MEDS: hydrALAZINE 25 MG TAB PO SCH (09:29)
[2021-06-12] MEDS: Lisinopril 20 MG TAB PO SCH (09:29)
[2021-06-12] MEDS: HumaLOG 300 UNITS/3 ML VIAL SC SCH ×2 (09:30→11:03)
[2021-06-12 11:32] VITALS: BP 109/58; TEMP 97.6
== END 2021-06-12 12:01 | disposition home or self-care (01) ==
LOC: SDC 06:02 → 2NO 11:45
PROVIDERS: ADMIT Internal Medicine Cardiovascular Disease; ATTEND Internal Medicine Cardiovascular Disease
PROC: 027034Z Dilation of Coronary Artery, One Artery with Drug-eluting Intraluminal Device, Percutaneous Approach (ICD-10-PCS; principal; 2021-06-11)
PROC: 4A023N7 Measurement of Cardiac Sampling and Pressure, Left Heart, Percutaneous Approach (ICD-10-PCS; 2021-06-11)
PROC: B2111ZZ Fluoroscopy of Multiple Coronary Arteries using Low Osmolar Contrast (ICD-10-PCS; 2021-06-11)
DX: I25.9 Chronic ischemic heart disease, unspecified (principal); I25.10 Atherosclerotic heart disease of native coronary artery without angina pectoris; E11.9 Type 2 diabetes mellitus without complications; I10 Essential (primary) hypertension; E78.2 Mixed hyperlipidemia; G47.30 Sleep apnea, unspecified; E66.01 Morbid (severe) obesity due to excess calories; Z68.42 Body mass index [BMI] 45.0-49.9, adult; Z87.891 Personal history of nicotine dependence; Z79.02 Long term (current) use of antithrombotics/antiplatelets; Z79.4 Long term (current) use of insulin; Z79.899 Other long term (current) drug therapy
CPT/HCPCS: 76942; 80053; 82962 ×2; 85025; 85347 ×2; 92979; 93005; 93458; C1753; C1769; C9600; 36415; 36416; 92928; 99152; 99153; G0378; J1644; J1815; J2001; J2250; J3010; Q9967

== ENCOUNTER 2021-06-14 17:42 | Inpatient (IN) | payer MEDICARE, MEDICAID ==
[2021-06-14 18:28] LABS: #Eosinphils 0.3 thou/uL (0.0-0.7); #Monocytes 0.5 thou/uL (0.11-0.59); #Neutrophils 6.3 thou/uL (1.40-6.50); %Basophils 0.2 % (0.0-1.0); %Eosinophils 2.9 % (0.0-10.0); %Monocytes 5.4 % (0.0-10.0); %Neutrophils 69.5 % (42.0-75.0); Hemoglobin 11.5 g/dL (12.0-16.0); Mean Corpuscular HGB CONC 32.6 g/dL (32.0-36.0); Mean Corpuscular Hemoglobin 27.1 pg (27.0-31.0); Mean Platelet Volume 8.7 fL (7.4-10.4); Platelet Count 319 thou/uL (130-400); RBC Distribution Width 16.7 % (11.5-14.5); Red Blood Cell (RBC) Count 4.25 mill/uL (4.20-5.40); White Blood Cell (WBC) Count 9.1 thou/uL (4.8-10.8)
[2021-06-14 18:52] LABS: ALT (SGPT) 25 U/L (8-55); AST (SGOT) 25 U/L (5-34); Alkaline Phosphatase 110 U/L (40-110); Anion Gap 15 mmol/L (10-20); BUN (Urea Nitrogen) 13 mg/dL (7.0-18.7); Bilirubin, Total 0.6 mg/dL (0.2-1.2); Calc. Creatinine Clearance 0 mL/min (70-130); Calcium 9.7 mg/dL (7.8-10.44); Carbon Dioxide 25 mmol/L (22-29); Chloride 101 mmol/L (98-107); Globulin 2.9 g/dL (2.4-3.5); Glucose 302 mg/dL (70-105); Lipase 39 U/L (8-78); Potassium 3.9 mmol/L (3.5-5.1); Protein, Total 6.9 g/dL (6.0-8.3); Sodium 137 mmol/L (136-145)
[2021-06-14] MEDS ORDERED: Aspirin 325 MG TAB ONE (19:21)
[2021-06-14] MEDS ORDERED: Acetaminophen 325 MG TAB PO PRN (20:42)
[2021-06-14] MEDS ORDERED: Ondansetron PF 4 MG/2 ML Vial IVP PRN (20:42)
[2021-06-14] MEDS ORDERED: Dextrose 5% in Water 1,000 ML IV PRN (20:46)
[2021-06-14] MEDS ORDERED: Dextrose 50% Abboject 50 ML SYRINGE SLOW IVP PRN (20:46)
[2021-06-14] MEDS ORDERED: Lantus 1000 UNITS/10 ML VIAL SC SCH (21:00)
[2021-06-14] MEDS: Atorvastatin Calcium 40 MG TAB PO SCH (21:46)
[2021-06-14 22:02] VITALS: BMI 39.3
[2021-06-14 22:04] LABS: Troponin I Less than 0.010 ng/mL (< 0.028)
[2021-06-14] MEDS ORDERED: Bisacodyl 10 MG SUPP PR PRN (22:06)
[2021-06-14] MEDS ORDERED: traMADol HCl 50 MG TAB PO PRN (22:06)
[2021-06-14] MEDS ORDERED: Cyclobenzaprine 10 MG TAB PO PRN (22:06)
[2021-06-14] MEDS ORDERED: Gabapentin 400 MG CAP PO SCH (22:15)
[2021-06-14] MEDS ORDERED: busPIRone HCl 5 MG TAB PO SCH (22:15)
[2021-06-14] MEDS: HumaLOG 300 UNITS/3 ML VIAL SC PRN (23:06)
[2021-06-15 03:44] LABS: Troponin I Less than 0.010 ng/mL (< 0.028)
[2021-06-15 03:55] LABS: Calcium 9.6 mg/dL (7.8-10.44); Chloride 100 mmol/L (98-107); Glucose 346 mg/dL (70-105); Potassium 3.5 mmol/L (3.5-5.1); Sodium 136 mmol/L (136-145)
[2021-06-15 03:57] LABS: Anion Gap 13 mmol/L (10-20); Carbon Dioxide 27 mmol/L (22-29)
[2021-06-15 03:59] LABS: Calc. Creatinine Clearance 126 mL/min (70-130)
[2021-06-15 04:00] LABS: BUN (Urea Nitrogen) 13 mg/dL (7.0-18.7)
[2021-06-15 04:43] LABS: Hemoglobin 11.2 g/dL (12.0-16.0); Mean Corpuscular HGB CONC 32.6 g/dL (32.0-36.0); Mean Corpuscular Hemoglobin 27.3 pg (27.0-31.0); Mean Corpuscular Volume 83.7 fL (78.0-98.0); Mean Platelet Volume 8.7 fL (7.4-10.4); Platelet Count 292 thou/uL (130-400); RBC Distribution Width 16.6 % (11.5-14.5); White Blood Cell (WBC) Count 7.3 thou/uL (4.8-10.8)
[2021-06-15 04:44] LABS: #Eosinphils 0.3 thou/uL (0.0-0.7); #Monocytes 0.5 thou/uL (0.11-0.59); #Neutrophils 4.5 thou/uL (1.40-6.50); %Basophils 0.4 % (0.0-1.0); %Lymphocytes 27.4 % (21.0-51.0); %Monocytes 7.1 % (0.0-10.0); %Neutrophils 61.1 % (42.0-75.0)
[2021-06-15] MEDS: Levothyroxine Sodium 25 MCG TAB PO SCH (05:24)
[2021-06-15] MEDS: HumaLOG 300 UNITS/3 ML VIAL SC PRN ×4 (06:37→21:05)
[2021-06-15 07:59] LABS: Hemoglobin A1c 9.8 % (4.0-6.0)
[2021-06-15] MEDS: Ketorolac Tromethamine 30 MG/ML VIAL IVP SCH (09:00)
[2021-06-15] MEDS ORDERED: Lisinopril 20 MG TAB PO SCH (09:00)
[2021-06-15] MEDS ORDERED: hydrALAZINE 25 MG TAB PO SCH (09:00)
[2021-06-15] MEDS: PARoxetine 20 MG TAB PO SCH (09:36)
[2021-06-15] MEDS: Gabapentin 400 MG CAP PO SCH ×3 (09:36→21:01)
[2021-06-15] MEDS: Famotidine 20 MG TAB PO SCH ×2 (09:36→21:01)
[2021-06-15] MEDS: Fenofibrate 48 MG TAB PO SCH (09:37)
[2021-06-15] MEDS: Hydrochlorothiazide 25 MG TAB PO SCH (09:37)
[2021-06-15] MEDS: Enoxaparin Sodium 40 MG/0.4 ML SYRINGE SC SCH (09:37)
[2021-06-15] MEDS: busPIRone HCl 5 MG TAB PO SCH ×2 (09:37→21:01)
[2021-06-15] MEDS: Aspirin 81 mg Enteric Coated Tablet PO SCH (09:37)
[2021-06-15] MEDS: Clopidogrel Bisulfate 75 MG TAB PO SCH (09:37)
[2021-06-15] MEDS: Lantus 1000 UNITS/10 ML VIAL SC SCH ×2 (09:40→21:07)
[2021-06-15] MEDS ORDERED: HumaLOG 300 UNITS/3 ML VIAL SC SCH (12:50)
[2021-06-15] MEDS: Alogliptin 25 MG TAB PO SCH (17:55)
[2021-06-15] MEDS: HumaLOG 300 UNITS/3 ML VIAL SC SCH (18:02)
[2021-06-15] MEDS: Atorvastatin Calcium 40 MG TAB PO SCH (21:01)
[2021-06-15 21:39] LABS: SARS-CoV-2 PCR by NAA Not Detected (NotDetected)
[2021-06-16 04:38] LABS: #Eosinphils 0.3 thou/uL (0.0-0.7); #Lymphocytes 1.8 thou/uL (1.20-3.40); #Monocytes 0.6 thou/uL (0.11-0.59); #Neutrophils 5.5 thou/uL (1.40-6.50); %Basophils 0.2 % (0.0-1.0); %Eosinophils 3.8 % (0.0-10.0); %Monocytes 6.7 % (0.0-10.0); %Neutrophils 67.4 % (42.0-75.0); Hemoglobin 11.2 g/dL (12.0-16.0); Mean Corpuscular HGB CONC 32.5 g/dL (32.0-36.0); Mean Corpuscular Hemoglobin 27.1 pg (27.0-31.0); Mean Corpuscular Volume 83.3 fL (78.0-98.0); Mean Platelet Volume 8.8 fL (7.4-10.4); Platelet Count 300 thou/uL (130-400); RBC Distribution Width 16.5 % (11.5-14.5); Red Blood Cell (RBC) Count 4.15 mill/uL (4.20-5.40); White Blood Cell (WBC) Count 8.2 thou/uL (4.8-10.8)
[2021-06-16 05:04] LABS: Anion Gap 13 mmol/L (10-20); BUN (Urea Nitrogen) 16 mg/dL (7.0-18.7); Calc. Creatinine Clearance 113 mL/min (70-130); Calcium 9.6 mg/dL (7.8-10.44); Carbon Dioxide 27 mmol/L (22-29); Chloride 98 mmol/L (98-107); Glucose 407 mg/dL (70-105); Sodium 134 mmol/L (136-145)
[2021-06-16] MEDS: Levothyroxine Sodium 25 MCG TAB PO SCH (05:34)
[2021-06-16] MEDS: HumaLOG 300 UNITS/3 ML VIAL SC PRN ×4 (06:14→20:21)
[2021-06-16] MEDS: HumaLOG 300 UNITS/3 ML VIAL SC SCH ×2 (08:00→12:27)
[2021-06-16] MEDS ORDERED: Regadenoson 0.4 MG/5 ML SYRINGE ONE (08:28)
[2021-06-16] MEDS: Famotidine 20 MG TAB PO SCH ×2 (09:02→20:16)
[2021-06-16] MEDS: PARoxetine 20 MG TAB PO SCH (09:03)
[2021-06-16] MEDS: busPIRone HCl 5 MG TAB PO SCH ×2 (09:03→20:16)
[2021-06-16] MEDS: Gabapentin 400 MG CAP PO SCH ×3 (09:03→20:15)
[2021-06-16] MEDS: Clopidogrel Bisulfate 75 MG TAB PO SCH (09:03)
[2021-06-16] MEDS: Hydrochlorothiazide 25 MG TAB PO SCH (09:03)
[2021-06-16] MEDS: Aspirin 81 mg Enteric Coated Tablet PO SCH (09:04)
[2021-06-16] MEDS: Enoxaparin Sodium 40 MG/0.4 ML SYRINGE SC SCH (09:04)
[2021-06-16] MEDS: Fenofibrate 48 MG TAB PO SCH (12:24)
[2021-06-16] MEDS: Alogliptin 25 MG TAB PO SCH ×2 (12:45→16:34)
[2021-06-16] MEDS ORDERED: Communication Order-Pharmacy FS SCH (15:15)
[2021-06-16] MEDS ORDERED: HumaLOG 300 UNITS/3 ML VIAL SC SCH (15:36)
[2021-06-16] MEDS: Ketorolac Tromethamine 30 MG/ML VIAL IVP SCH (16:38)
[2021-06-16] MEDS: Atorvastatin Calcium 40 MG TAB PO SCH (20:16)
[2021-06-16] MEDS ORDERED: Lantus 1000 UNITS/10 ML VIAL SC SCH ×2 (21:00)
[2021-06-17 04:49] LABS: #Eosinphils 0.3 thou/uL (0.0-0.7); #Lymphocytes 1.9 thou/uL (1.20-3.40); #Monocytes 0.6 thou/uL (0.11-0.59); #Neutrophils 5.7 thou/uL (1.40-6.50); %Basophils 0.3 % (0.0-1.0); %Lymphocytes 22.3 % (21.0-51.0); %Monocytes 7.2 % (0.0-10.0); %Neutrophils 67.3 % (42.0-75.0); Hemoglobin 11.4 g/dL (12.0-16.0); Mean Corpuscular HGB CONC 32.2 g/dL (32.0-36.0); Mean Corpuscular Hemoglobin 26.9 pg (27.0-31.0); Mean Corpuscular Volume 83.6 fL (78.0-98.0); Mean Platelet Volume 8.7 fL (7.4-10.4); Platelet Count 300 thou/uL (130-400); RBC Distribution Width 16.4 % (11.5-14.5); Red Blood Cell (RBC) Count 4.24 mill/uL (4.20-5.40); White Blood Cell (WBC) Count 8.5 thou/uL (4.8-10.8)
[2021-06-17 05:06] LABS: Anion Gap 15 mmol/L (10-20); BUN (Urea Nitrogen) 17 mg/dL (7.0-18.7); Calc. Creatinine Clearance 119 mL/min (70-130); Calcium 9.4 mg/dL (7.8-10.44); Carbon Dioxide 28 mmol/L (22-29); Chloride 96 mmol/L (98-107); Glucose 373 mg/dL (70-105); Potassium 3.9 mmol/L (3.5-5.1); Sodium 135 mmol/L (136-145)
[2021-06-17] MEDS: Hydrochlorothiazide 25 MG TAB PO SCH (05:31)
[2021-06-17] MEDS: Famotidine 20 MG TAB PO SCH (05:31)
[2021-06-17] MEDS: Levothyroxine Sodium 25 MCG TAB PO SCH (05:31)
[2021-06-17] MEDS: Aspirin 81 mg Enteric Coated Tablet PO SCH (05:31)
[2021-06-17] MEDS: Fenofibrate 48 MG TAB PO SCH (05:31)
[2021-06-17] MEDS: PARoxetine 20 MG TAB PO SCH (05:32)
[2021-06-17] MEDS: Gabapentin 400 MG CAP PO SCH ×2 (05:32→16:10)
[2021-06-17] MEDS: busPIRone HCl 5 MG TAB PO SCH (05:32)
[2021-06-17] MEDS ORDERED: Sodium Chloride 0.9% 1,000 ML IV SCH (08:00)
[2021-06-17] MEDS ORDERED: Midazolam HCl 2 mg/2 ml Vial ONE ×2 (10:29→11:49)
[2021-06-17] MEDS ORDERED: Lidocaine 1% (PF) 30 ML VIAL ONE (10:29)
[2021-06-17] MEDS ORDERED: Fentanyl 250 MCG/5 ML VIAL ONE ×2 (10:29→11:49)
[2021-06-17] MEDS ORDERED: Dextrose 50% Abboject 50 ML SYRINGE IVP PRN (11:30)
[2021-06-17] MEDS ORDERED: Dextrose 5% in Water 1,000 ML IV PRN (11:30)
[2021-06-17] MEDS ORDERED: HumaLOG 300 UNITS/3 ML VIAL SC PRN (11:30)
[2021-06-17] MEDS ORDERED: Iopamidol 370 76% 100 ML VIAL ONE (11:57)
[2021-06-17] MEDS ORDERED: Sodium Chloride 0.9% 200 ML IV PRN (12:43)
[2021-06-17] MEDS ORDERED: Nitroglycerin 0.4 MG TAB (25 Tab Bottle) SL PRN (12:43)
[2021-06-17] MEDS ORDERED: Acetaminophen/Codeine 30-300mg Tablet PO PRN (12:43)
[2021-06-17 14:13] VITALS: TEMP 97.8
[2021-06-17] MEDS: Clopidogrel Bisulfate 75 MG TAB PO SCH (16:09)
[2021-06-17] MEDS: Alogliptin 25 MG TAB PO SCH ×2 (16:10)
[2021-06-17 16:21] VITALS: BP 157/70
[2021-06-17] MEDS ORDERED: Famotidine 20 MG TAB PO SCH (21:00)
== END 2021-06-17 18:06 | disposition home or self-care (01) | DRG 287 ==
LOC: ERS 17:42 → 2NO 20:15 → OBSVTOIN 06-16 17:40
PROVIDERS: ADMIT Internal Medicine; ATTEND Internal Medicine
PROC: 4A023N7 Measurement of Cardiac Sampling and Pressure, Left Heart, Percutaneous Approach (ICD-10-PCS; principal; 2021-06-17)
PROC: B2111ZZ Fluoroscopy of Multiple Coronary Arteries using Low Osmolar Contrast (ICD-10-PCS; 2021-06-17)
DX: R07.89 Other chest pain (principal); Z68.41 Body mass index [BMI] 40.0-44.9, adult; I50.32 Chronic diastolic (congestive) heart failure; Z20.822 Contact with and (suspected) exposure to COVID-19; I11.0 Hypertensive heart disease with heart failure; E78.5 Hyperlipidemia, unspecified; I25.10 Atherosclerotic heart disease of native coronary artery without angina pectoris; E11.40 Type 2 diabetes mellitus with diabetic neuropathy, unspecified; E03.9 Hypothyroidism, unspecified; G47.33 Obstructive sleep apnea (adult) (pediatric); E66.01 Morbid (severe) obesity due to excess calories; D64.9 Anemia, unspecified; F41.9 Anxiety disorder, unspecified; F32.A Depression, unspecified; Z79.82 Long term (current) use of aspirin; Z79.84 Long term (current) use of oral hypoglycemic drugs; Z79.899 Other long term (current) drug therapy; Z86.73 Personal history of transient ischemic attack (TIA), and cerebral infarction without residual deficits; Z90.49 Acquired absence of other specified parts of digestive tract; Z95.5 Presence of coronary angioplasty implant and graft; Z90.710 Acquired absence of both cervix and uterus; Z98.890 Other specified postprocedural states; Z87.891 Personal history of nicotine dependence
CPT/HCPCS: 36415; 36416; 71045; 78452; 80048; 80053; 83036; 83690; 84443; 84484; 85025; 93005; 93017; 93458; 96372; 97139; 99152; A9500; G0378; J1650; J1815; J2001; J2250; J2785; J3010; J7050; Q9967; U0003; U0005

== ENCOUNTER 2021-08-20 09:33 | Emergency (ER) | payer MEDICARE ==
[2021-08-20 09:57] LABS: #Basophils 0.1 thou/uL (0.0-0.2); #Eosinphils 0.5 thou/uL (0.0-0.7); #Lymphocytes 2.1 thou/uL (1.20-3.40); #Monocytes 0.6 thou/uL (0.11-0.59); #Neutrophils 7.3 thou/uL (1.40-6.50); %Basophils 0.5 % (0.0-1.0); %Eosinophils 4.3 % (0.0-10.0); %Lymphocytes 19.8 % (21.0-51.0); %Monocytes 5.8 % (0.0-10.0); %Neutrophils 69.5 % (42.0-75.0); Mean Corpuscular HGB CONC 33.1 g/dL (32.0-36.0); Mean Corpuscular Hemoglobin 26.2 pg (27.0-31.0); Mean Platelet Volume 9.6 fL (7.4-10.4); Platelet Count 282 thou/uL (130-400); RBC Distribution Width 16.1 % (11.5-14.5); White Blood Cell (WBC) Count 10.5 thou/uL (4.8-10.8)
[2021-08-20 10:11] LABS: Prothrombin Time 13.5 sec (12.0-14.7)
[2021-08-20 10:12] LABS: PTT 37.1 sec (22.9-36.1)
[2021-08-20] MEDS ORDERED: Aspirin Chewable 81 MG TAB ONE (10:12)
[2021-08-20 10:15] LABS: ALT (SGPT) 21 U/L (8-55); AST (SGOT) 19 U/L (5-34); Albumin 4.2 g/dL (3.5-5.0); Alkaline Phosphatase 150 U/L (40-110); Anion Gap 17 mmol/L (10-20); BUN (Urea Nitrogen) 33 mg/dL (7.0-18.7); Bilirubin, Total 0.8 mg/dL (0.2-1.2); Calc. Creatinine Clearance 0 mL/min (70-130); Calcium 9.1 mg/dL (7.8-10.44); Carbon Dioxide 23 mmol/L (22-29); Chloride 97 mmol/L (98-107); Globulin 3.2 g/dL (2.4-3.5); Glucose 455 mg/dL (70-105); Potassium 4.9 mmol/L (3.5-5.1); Protein, Total 7.4 g/dL (6.0-8.3); Sodium 132 mmol/L (136-145)
== END 2021-08-20 11:45 | disposition home or self-care (01) ==
LOC: ERS 09:33
DX: E11.8 Type 2 diabetes mellitus with unspecified complications (principal); R20.0 Anesthesia of skin; R20.2 Paresthesia of skin; E03.9 Hypothyroidism, unspecified; I10 Essential (primary) hypertension; E78.5 Hyperlipidemia, unspecified; G47.30 Sleep apnea, unspecified; Z86.73 Personal history of transient ischemic attack (TIA), and cerebral infarction without residual deficits; Z87.891 Personal history of nicotine dependence; Z79.899 Other long term (current) drug therapy; Z79.82 Long term (current) use of aspirin
CPT/HCPCS: 36415; 36416; 70450; 70496; 70498; 71045; 80053; 84484; 85025; 85610; 85730; 93005; 94760; Q9967

== ENCOUNTER 2022-03-31 09:30 | Inpatient (IN) | payer OTHER, MEDICAID ==
[2022-04-08 09:18] VITALS: BMI 48.6
[2022-04-09] MEDS ORDERED: Heparin 5,000 UNITS/ML VIAL ONE (12:40)
[2022-04-09 13:22] LABS: SARS-CoV-2 NAA Rapid Test Not Detected (NotDetected)
[2022-04-09] MEDS ORDERED: Fentanyl 250 MCG/5 ML VIAL ONE (14:51)
[2022-04-09] MEDS ORDERED: Bupivacaine/Epinephrine 0.25% 30 ML VIAL ONE ×2 (14:54→15:45)
[2022-04-09] MEDS ORDERED: Sodium Chloride 0.9% 100 ML ONE (15:15)
[2022-04-09] MEDS ORDERED: CEFAZOLIN 2 GM VIAL ONE (15:15)
[2022-04-09] MEDS ORDERED: SUGAMMADEX SODIUM 200 MG/2 ML VIAL ONE (15:18)
[2022-04-09] MEDS ORDERED: Esmolol 100 MG/10 ML VIAL ONE (15:24)
[2022-04-09] MEDS ORDERED: PROPOFOL 200 MG/20 ML VIAL ONE (15:24)
[2022-04-09] MEDS ORDERED: Dexamethasone 20 MG/5 ML VIAL ONE (15:24)
[2022-04-09] MEDS ORDERED: Rocuronium Bromide 10 MG/ML (10ML VIAL) ONE (15:24)
[2022-04-09] MEDS ORDERED: Ondansetron PF 4 MG/2 ML Vial ONE ×2 (15:24→17:09)
[2022-04-09] MEDS ORDERED: diphenhydrAMINE 50 MG/ML VIAL IVP PRN (16:35)
[2022-04-09] MEDS ORDERED: hydrALAZINE 20 MG/ML VIAL SLOW IVP PRN (16:35)
[2022-04-09] MEDS ORDERED: Promethazine HCl 25 MG/ML VIAL IM PRN (16:35)
[2022-04-09] MEDS ORDERED: Dextrose 5% in Water 1,000 ML IV PRN (16:35)
[2022-04-09] MEDS ORDERED: Ondansetron PF 4 MG/2 ML Vial IVP PRN (16:35)
[2022-04-09] MEDS ORDERED: Hydrocodone-Acetamin 15 ML UDCUP PO PRN (16:35)
[2022-04-09] MEDS ORDERED: Dextrose 50% Abboject 50 ML SYRINGE SLOW IVP PRN (16:35)
[2022-04-09] MEDS ORDERED: FENTANYL 50 MCG/ML 1 ML VIAL ONE ×2 (16:56→17:12)
[2022-04-09] MEDS ORDERED: Ketorolac Tromethamine 30 MG/ML VIAL ONE (17:05)
[2022-04-09] MEDS ORDERED: Morphine 4 MG/ML VIAL SLOW IVP PRN (17:22)
[2022-04-09] MEDS ORDERED: Labetalol HCl 100 MG/20 ML VIAL ONE (17:33)
[2022-04-09] MEDS ORDERED: Promethazine HCl 25 MG/ML VIAL ONE (17:47)
[2022-04-09] MEDS: D5 1/2 NS w/20 mEq KCL 1,000 ML IV SCH (21:44)
[2022-04-09] MEDS: Ketorolac Tromethamine 30 MG/ML VIAL IVP SCH (23:50)
[2022-04-09] MEDS: Morphine 4 MG/ML VIAL SLOW IVP PRN (23:50)
[2022-04-09] MEDS: CEFAZOLIN 2 GM in Sodium Chloride 0.9% 100 ML IVPB SCH (23:51)
[2022-04-10] MEDS: Morphine 4 MG/ML VIAL SLOW IVP PRN (03:02)
[2022-04-10] MEDS: D5 1/2 NS w/20 mEq KCL 1,000 ML IV SCH ×2 (03:18→08:10)
[2022-04-10] MEDS: Ketorolac Tromethamine 30 MG/ML VIAL IVP SCH (05:02)
[2022-04-10] MEDS: CEFAZOLIN 2 GM in Sodium Chloride 0.9% 100 ML IVPB SCH (08:10)
[2022-04-10] MEDS ORDERED: Pantoprazole 40 MG VIAL IVP SCH (09:00)
[2022-04-10] MEDS ORDERED: Enoxaparin Sodium 40 MG/0.4 ML SYRINGE SC SCH (09:00)
[2022-04-10 09:22] LABS: #Eosinphils 0.1 thou/uL (0.0-0.7); #Lymphocytes 2.8 thou/uL (1.20-3.40); %Eosinophils 0.6 % (0.0-10.0); %Lymphocytes 16.3 % (21.0-51.0); %Neutrophils 77.1 % (42.0-75.0); Hemoglobin 10.2 g/dL (12.0-16.0); Mean Corpuscular HGB CONC 32.2 g/dL (32.0-36.0); Mean Corpuscular Volume 77.8 fl (78.0-98.0); Mean Platelet Volume 8.8 fL (7.4-10.4); Platelet Count 380 10x3/uL (130-400); RBC Distribution Width 16.6 % (11.5-14.5); Red Blood Cell (RBC) Count 4.08 mill/uL (4.20-5.40); White Blood Cell (WBC) Count 16.9 10x3/uL (4.8-10.8)
[2022-04-10 09:53] LABS: Anion Gap 18 mmol/L (10-20); BUN (Urea Nitrogen) 27 mg/dL (9.8-20.1); Calc. Creatinine Clearance 103 mL/min (70-130); Calcium 9.2 mg/dL (7.8-10.44); Carbon Dioxide 15 mmol/L (22-29); Chloride 105 mmol/L (98-107); Estimated GFR 65; Glucose 138 mg/dL (70-105); Potassium 5.6 mmol/L (3.5-5.1); Sodium 132 mmol/L (136-145)
[2022-04-10 11:23] VITALS: BP 135/79; TEMP 97.7
== END 2022-04-10 12:50 | disposition home or self-care (01) | DRG 621 ==
LOC: SURG A 04-09 11:27
PROVIDERS: ADMIT Surgery; ATTEND Surgery
PROC: 0DB64Z3 Excision of Stomach, Percutaneous Endoscopic Approach, Vertical (ICD-10-PCS; principal; 2022-04-09)
PROC: 8E0W4CZ Robotic Assisted Procedure of Trunk Region, Percutaneous Endoscopic Approach (ICD-10-PCS; 2022-04-09)
DX: E66.01 Morbid (severe) obesity due to excess calories (principal); Z68.41 Body mass index [BMI] 40.0-44.9, adult; Z20.822 Contact with and (suspected) exposure to COVID-19; F41.9 Anxiety disorder, unspecified; E78.00 Pure hypercholesterolemia, unspecified; E11.9 Type 2 diabetes mellitus without complications; F32.A Depression, unspecified; G47.419 Narcolepsy without cataplexy; Z79.899 Other long term (current) drug therapy; Z79.4 Long term (current) use of insulin; Z79.890 Hormone replacement therapy; Z79.02 Long term (current) use of antithrombotics/antiplatelets; Z79.84 Long term (current) use of oral hypoglycemic drugs; Z86.73 Personal history of transient ischemic attack (TIA), and cerebral infarction without residual deficits; Z98.890 Other specified postprocedural states; Z90.710 Acquired absence of both cervix and uterus; Z82.49 Family history of ischemic heart disease and other diseases of the circulatory system; Z83.3 Family history of diabetes mellitus; Z82.41 Family history of sudden cardiac death
CPT/HCPCS: 36415; 36416; 80048; 85025; 88307; 88342; C9113; J1100; J1644; J1650; J1885; J2270; J2405; J2550; J2704; J3010; J3480; J3490; U0002

== ENCOUNTER 2022-04-17 09:22 | Day surgery (SDC) | payer OTHER, MEDICAID ==
[2022-04-17] MEDS ORDERED: Ondansetron PF 4 MG/2 ML Vial IVP PRN (09:29)
[2022-04-17] MEDS ORDERED: Sodium Chloride 0.9% 1,000 ML IV SCH (09:30)
[2022-04-17] MEDS ORDERED: Multivitamins, Adult 10 ML, Thiamine HCl 100 MG in Sodium Chloride 0.9% 1,000 ML IV SCH (09:30)
[2022-04-17 11:43] VITALS: BP 134/79; TEMP 98.9
== END 2022-04-17 12:50 | disposition home or self-care (01) ==
LOC: ONC/OP 09:22
PROVIDERS: ATTEND Surgery
DX: E86.0 Dehydration (principal)
CPT/HCPCS: 96361; 96365; 96366; J3411; J7050

== ENCOUNTER 2022-04-27 17:43 | Emergency (ER) | payer OTHER ==
[2022-04-27 18:12] LABS: #Eosinphils 0.1 thou/uL (0.0-0.7); #Lymphocytes 1.9 thou/uL (1.20-3.40); #Neutrophils 6.2 thou/uL (1.40-6.50); %Eosinophils 0.8 % (0.0-10.0); %Lymphocytes 20.7 % (21.0-51.0); %Monocytes 10.6 % (0.0-10.0); %Neutrophils 67.8 % (42.0-75.0); Hemoglobin 8.5 g/dL (12.0-16.0); Mean Corpuscular HGB CONC 31.1 g/dL (32.0-36.0); Mean Corpuscular Hemoglobin 23.5 pg (27.0-31.0); Mean Corpuscular Volume 75.4 fl (78.0-98.0); Platelet Count 373 10x3/uL (130-400); RBC Distribution Width 17.1 % (11.5-14.5); Red Blood Cell (RBC) Count 3.62 mill/uL (4.20-5.40); White Blood Cell (WBC) Count 9.2 10x3/uL (4.8-10.8)
[2022-04-27 18:34] LABS: ALT (SGPT) 18 U/L (8-55); AST (SGOT) 19 U/L (5-34); Albumin 3.7 g/dL (3.5-5.0); Alkaline Phosphatase 101 U/L (40-110); Anion Gap 16 mmol/L (10-20); BUN (Urea Nitrogen) 7 mg/dL (9.8-20.1); Bilirubin, Total 1.7 mg/dL (0.2-1.2); Calc. Creatinine Clearance 0 mL/min (70-130); Calcium 8.7 mg/dL (7.8-10.44); Carbon Dioxide 29 mmol/L (22-29); Chloride 99 mmol/L (98-107); Estimated GFR 105; Globulin 3.1 g/dL (2.4-3.5); Glucose 136 mg/dL (70-105); Potassium 3.4 mmol/L (3.5-5.1); Protein, Total 6.8 g/dL (6.0-8.3); Sodium 141 mmol/L (136-145)
[2022-04-27] MEDS ORDERED: Piperacillin/Tazobactam 4.5 GM VIAL ONE (18:38)
[2022-04-27 21:41] LABS: Bilirubin Negative (Negative); Blood, Urine Trace (Negative); Clarity Turbid (Clear); Glucose, Urine (Dipstick) Normal (Negative); Ketone, Urine Negative (Negative); Leukocyte 25 Leu/uL (Negative); Nitrite Negative (Negative); Protein, Urine (Dipstick) Negative (Neg-Trace); Squamous Epithelial 0-3 HPF (0-3); Urobilinogen Normal mg/dL (Less than 2)
[2022-04-27 21:43] LABS: Bacteria/HPF 1+ HPF (None Seen); Specific Gravity, Urine 1.057 (1.002-1.036)
== END 2022-04-27 22:10 | disposition home or self-care (01) ==
LOC: ERS 17:43
DX: J10.1 Influenza due to other identified influenza virus with other respiratory manifestations (principal); Z20.822 Contact with and (suspected) exposure to COVID-19; D63.8 Anemia in other chronic diseases classified elsewhere; E11.9 Type 2 diabetes mellitus without complications; E03.9 Hypothyroidism, unspecified; I10 Essential (primary) hypertension; E78.5 Hyperlipidemia, unspecified; Z87.891 Personal history of nicotine dependence
CPT/HCPCS: 71045; 74177; 80053; 83605; 85025; 87040; 87804 ×2; 96365; 99284; U0003; U0005; 36415; 81003; 81015; J2543; Q9967

== ENCOUNTER 2022-05-16 20:12 | Emergency (ER) | payer OTHER ==
[2022-05-17] MEDS ORDERED: Ondansetron PF 4 MG/2 ML Vial ONE (00:41)
[2022-05-17 01:19] LABS: #Basophils 0.1 thou/uL (0.0-0.2); #Eosinphils 0.2 thou/uL (0.0-0.7); #Lymphocytes 2.4 thou/uL (1.20-3.40); #Neutrophils 6.6 thou/uL (1.40-6.50); %Basophils 0.5 % (0.0-1.0); %Eosinophils 1.6 % (0.0-10.0); %Lymphocytes 23.3 % (21.0-51.0); %Monocytes 9.4 % (0.0-10.0); %Neutrophils 65.2 % (42.0-75.0); Hemoglobin 10.2 g/dL (12.0-16.0); Mean Corpuscular HGB CONC 32.9 g/dL (32.0-36.0); Mean Corpuscular Volume 72.9 fl (78.0-98.0); Mean Platelet Volume 9.4 fL (7.4-10.4); Platelet Count 500 10x3/uL (130-400); RBC Distribution Width 18.5 % (11.5-14.5); Red Blood Cell (RBC) Count 4.26 mill/uL (4.20-5.40); White Blood Cell (WBC) Count 10.1 10x3/uL (4.8-10.8)
[2022-05-17 01:33] LABS: ALT (SGPT) 17 U/L (8-55); AST (SGOT) 15 U/L (5-34); Albumin 3.9 g/dL (3.5-5.0); Alkaline Phosphatase 113 U/L (40-110); Anion Gap 19 mmol/L (10-20); BUN (Urea Nitrogen) 13 mg/dL (9.8-20.1); Bilirubin, Total 2.4 mg/dL (0.2-1.2); Calc. Creatinine Clearance 0 mL/min (70-130); Calcium 9.9 mg/dL (7.8-10.44); Carbon Dioxide 25 mmol/L (22-29); Chloride 97 mmol/L (98-107); Estimated GFR 95; Globulin 4.5 g/dL (2.4-3.5); Glucose 151 mg/dL (70-105); Magnesium 1.6 mg/dL (1.6-2.6); Potassium 3.8 mmol/L (3.5-5.1); Protein, Total 8.4 g/dL (6.0-8.3); Sodium 137 mmol/L (136-145); Uric Acid 9.8 mg/dL (2.6-6.0)
== END 2022-05-17 02:30 | disposition home or self-care (01) ==
LOC: ERS 20:12
DX: M79.672 Pain in left foot (principal); R11.0 Nausea; E11.9 Type 2 diabetes mellitus without complications; E03.9 Hypothyroidism, unspecified; I10 Essential (primary) hypertension; Z87.891 Personal history of nicotine dependence
CPT/HCPCS: 80053; 83735; 84550; 85025; 96374; 96375; J2405; J3411

== ENCOUNTER 2022-06-02 13:35 | Day surgery (SDC) | payer OTHER ==
[2022-06-02] MEDS ORDERED: Acetaminophen 500 MG TAB ONE (14:48)
[2022-06-02] MEDS ORDERED: diphenhydrAMINE 25 MG CAP ONE (14:48)
[2022-06-02 14:49] LABS: Mean Corpuscular HGB CONC 31.4 g/dL (32.0-36.0); Mean Corpuscular Hemoglobin 23.3 pg (27.0-31.0); Mean Corpuscular Volume 74.2 fl (78.0-98.0); Mean Platelet Volume 11.7 fL (7.4-10.4); Platelet Count 279 10x3/uL (130-400); RBC Distribution Width 20.8 % (11.5-14.5); Red Blood Cell (RBC) Count 3.45 mill/uL (4.20-5.40); White Blood Cell (WBC) Count 8.4 10x3/uL (4.8-10.8)
[2022-06-02 15:25] LABS: ALT (SGPT) 19 U/L (8-55); AST (SGOT) 24 U/L (5-34); Albumin 3.6 g/dL (3.5-5.0); Alkaline Phosphatase 96 U/L (40-110); Anion Gap 11 mmol/L (10-20); BUN (Urea Nitrogen) 15 mg/dL (9.8-20.1); Bilirubin, Direct 0.3 mg/dL (0.1-0.3); Bilirubin, Total 0.9 mg/dL (0.2-1.2); Calc. Creatinine Clearance 0 mL/min (70-130); Carbon Dioxide 25 mmol/L (22-29); Cardiac Risk 5.4 (Less than 4.5); Chloride 105 mmol/L (98-107); Cholesterol 145 mg/dl (< 200 Desired); Estimated GFR 107; Glucose 176 mg/dL (70-105); HDL Cholesterol 27 mg/dL (>60 Neg Risk); LDL Cholesterol, Calculated 61 mg/dL; Potassium 3.4 mmol/L (3.5-5.1); Protein, Total 6.6 g/dL (6.0-8.3); Sodium 138 mmol/L (136-145); Triglycerides 284 mg/dL (Less than 150)
[2022-06-02 15:31] LABS: Vitamin D, 25 Hydroxy 19.6 ng/ml (> 30.0)
[2022-06-02 15:34] LABS: Thyroid Stimulating Hormone 1.847 uIU/mL (0.35-4.94)
[2022-06-02 17:44] VITALS: BP 138/63; TEMP 99
== END 2022-06-02 18:00 | disposition home or self-care (01) ==
LOC: ONC/OP 13:35
PROVIDERS: ATTEND Internal Medicine Hematology & Oncology
PROC: 30233N1 Transfusion of Nonautologous Red Blood Cells into Peripheral Vein, Percutaneous Approach (ICD-10-PCS; principal; 2022-06-02)
DX: D50.9 Iron deficiency anemia, unspecified (principal)
CPT/HCPCS: 36430; 80053; 80061; 82248; 82306; 82607; 82728; 82746; 84425; 84443; 85025; 86850; 86900; 86901; P9016

== ENCOUNTER 2022-07-28 11:31 | Outpatient (CLI) | payer OTHER, MEDICAID | END 2022-07-28 11:32 | disposition home or self-care (01) | LOC: BICRAD 11:31 | PROVIDERS: ATTEND Nurse Practitioner Family | DX: M25.471 Effusion, right ankle (principal); M21.6X1 Other acquired deformities of right foot; S92.001A Unspecified fracture of right calcaneus, initial encounter for closed fracture; M19.071 Primary osteoarthritis, right ankle and foot ==

== ENCOUNTER 2022-10-05 08:22 | Day surgery (SDC) | payer OTHER, MEDICAID ==
[2022-10-05] MEDS ORDERED: fentaNYL PF 100 MCG/2 ML SYRINGE ONE (09:02)
[2022-10-05] MEDS ORDERED: Levofloxacin 500 mg/D5W 100 ml Premix Bag ONE (10:06)
[2022-10-05] MEDS ORDERED: Ondansetron PF 4 MG/2 ML Vial ONE (10:21)
[2022-10-05] MEDS ORDERED: Dexamethasone 20 MG/5 ML VIAL ONE (10:21)
[2022-10-05] MEDS ORDERED: Rocuronium Bromide 10 MG/ML (10ML VIAL) ONE (10:21)
[2022-10-05] MEDS ORDERED: PROPOFOL 200 MG/20 ML VIAL ONE (10:21)
[2022-10-05] MEDS ORDERED: Lidocaine 1% PF 5 ML VIAL ONE (10:21)
[2022-10-05] MEDS ORDERED: Iopamidol 30 ML ONE (10:31)
[2022-10-05] MEDS ORDERED: Ondansetron HCl/PF 4 MG/2 ML Vial IVP PRN (10:41)
[2022-10-05] MEDS ORDERED: HYDROmorphone 2 MG/ML VIAL SLOW IVP PRN (10:41)
[2022-10-05] MEDS ORDERED: Promethazine HCl 25 MG/ML VIAL IM PRN (10:41)
[2022-10-05] MEDS ORDERED: SUGAMMADEX SODIUM 200 MG/2 ML VIAL ONE (11:00)
== END 2022-10-05 12:41 | disposition home or self-care (01) ==
LOC: SDC 08:22
PROVIDERS: ATTEND Urology
PROC: 0TB38ZX Excision of Right Kidney Pelvis, Via Natural or Artificial Opening Endoscopic, Diagnostic (ICD-10-PCS; principal; 2022-10-05)
PROC: 0T768DZ Dilation of Right Ureter with Intraluminal Device, Via Natural or Artificial Opening Endoscopic (ICD-10-PCS; 2022-10-05)
DX: D09.19 Carcinoma in situ of other urinary organs (principal); R31.0 Gross hematuria; I25.10 Atherosclerotic heart disease of native coronary artery without angina pectoris; I10 Essential (primary) hypertension; E11.9 Type 2 diabetes mellitus without complications; E78.5 Hyperlipidemia, unspecified; F41.9 Anxiety disorder, unspecified; Z86.73 Personal history of transient ischemic attack (TIA), and cerebral infarction without residual deficits; Z98.84 Bariatric surgery status; Z79.82 Long term (current) use of aspirin; Z79.899 Other long term (current) drug therapy; Z90.49 Acquired absence of other specified parts of digestive tract
CPT/HCPCS: 52332; 52354; 74420; C1747; C2617; 88305; J1100; J1956; J2405; J2704; Q9967

== ENCOUNTER 2023-03-20 21:27 | Inpatient (IN) | payer OTHER, MEDICAID ==
[~2023-03-20 21:27] MED LIST changes: -Iopamidol-370 76% 500 ML 1 ML ONE; +Iopamidol-370 76% 500 ML MDV (1 ML CHARGE) ONE
[2023-03-20 22:27] LABS: #Eosinphils 0.3 thou/uL (0.0-0.7); #Neutrophils 11.5 thou/uL (1.40-6.50); %Basophils 0.2 % (0.0-1.0); %Eosinophils 1.9 % (0.0-10.0); %Lymphocytes 7.5 % (21.0-51.0); %Monocytes 6.9 % (0.0-10.0); %Neutrophils 82.9 % (42.0-75.0); Hematocrit 42.5 % (36.0-47.0); Hemoglobin 13.4 g/dL (12.0-16.0); Mean Corpuscular HGB CONC 31.5 g/dL (32.0-36.0); Mean Corpuscular Hemoglobin 24.9 pg (27.0-31.0); Mean Platelet Volume 10.4 fL (7.4-10.4); Platelet Count 223 10x3/uL (130-400); RBC Distribution Width 17.9 % (11.5-14.5); Red Blood Cell (RBC) Count 5.38 mill/uL (4.20-5.40); White Blood Cell (WBC) Count 13.9 10x3/uL (4.8-10.8)
[2023-03-20 22:31] LABS: Actual Bicarbonate (HCO3v) 20.9 mEq/L (22-28); Base Excess -5.6 mEq/L (-2.0 to +3.0); Calcium, Ionized (venous) 1.13 mmol/L (1.16-1.32); Chloride (VBG) 105 mmol/L (98-106); Hematocrit-VBG 41 % (36.0-47.0); Hemoglobin (Hb) 13.9 g/dL (11.7-16.0); Sodium 141 mmol/L (133-146); pH (venous) 7.288 (7.32-7.43)
[2023-03-20 22:44] LABS: Troponin I Less than 0.010 ng/mL (< 0.028)
[2023-03-20 23:42] LABS: ALT (SGPT) 16 U/L (8-55); AST (SGOT) 19 U/L (5-34); Alkaline Phosphatase 118 U/L (40-110); Anion Gap 19 mmol/L (10-20); BUN (Urea Nitrogen) 23 mg/dL (9.8-20.1); Bilirubin, Total 0.6 mg/dL (0.2-1.2); Calc. Creatinine Clearance 0 mL/min (70-130); Calcium 9.1 mg/dL (7.8-10.44); Carbon Dioxide 18 mmol/L (22-29); Chloride 105 mmol/L (98-107); Estimated GFR 90; Globulin 3.2 g/dL (2.4-3.5); Glucose 143 mg/dL (70-105); Lipase 37 U/L (8-78); Potassium 3.9 mmol/L (3.5-5.1); Protein, Total 7.2 g/dL (6.0-8.3); Sodium 138 mmol/L (136-145)
[2023-03-21] MEDS ORDERED: fentaNYL 50 mcg/mL 1 mL Vial ONE (00:36)
[2023-03-21 00:48] LABS: Bacteria/HPF None Seen HPF (None Seen); Bilirubin Negative (Negative); Blood, Urine Negative (Negative); CAUTI Indications for Culture Pelvic or flank pain; Clarity Clear (Clear); Glucose, Urine (Dipstick) Normal (Negative); Ketone, Urine Negative (Negative); Leukocyte 500 Leu/uL (Negative); Nitrite Negative (Negative); Protein, Urine (Dipstick) Negative (Neg-Trace); RBC/HPF 0-3 HPF (0-3); Squamous Epithelial 0-3 HPF (0-3); Urobilinogen Normal mg/dL (Less than 2); WBC/HPF 21-50 HPF (0-3)
[2023-03-21 00:50] LABS: Specific Gravity, Urine 1.043 (1.002-1.036)
[2023-03-21 00:51] LABS: Urine Culture Reflex Yes Yes
[2023-03-21 01:25] LABS: Lactic Acid 2.6 mmol/L (0.5-2.2)
[2023-03-21] MEDS ORDERED: metroNIDAZOLE 500 MG/100 ML BAG ONE (02:03)
[2023-03-21] MEDS ORDERED: Sodium Chloride 0.9% 100 ML ONE (02:03)
[2023-03-21] MEDS ORDERED: cefTRIAXone (ROCEPHIN) 2 GM VIAL ONE (02:03)
[2023-03-21] MEDS ORDERED: Acetaminophen 325 MG TAB PO PRN (02:40)
[2023-03-21] MEDS ORDERED: Dextrose 50% Abboject 50 ML SYRINGE SLOW IVP PRN (02:44)
[2023-03-21] MEDS ORDERED: Glucagon 1 MG/ML KIT IM PRN (02:44)
[2023-03-21] MEDS ORDERED: Dextrose 5% in Water 1,000 ML IV PRN (02:44)
[2023-03-21] MEDS ORDERED: HumaLOG 300 UNITS/3 ML VIAL SC PRN ×2 (02:44)
[2023-03-21] MEDS ORDERED: Sodium Chloride 0.9% 1,000 ML IV SCH ×2 (02:45→02:55)
[2023-03-21 04:22] VITALS: BMI 34.3
[2023-03-21 05:25] LABS: #Eosinphils 0.3 thou/uL (0.0-0.7); #Monocytes 0.4 thou/uL (0.11-0.59); #Neutrophils 7.1 thou/uL (1.40-6.50); %Basophils 0.2 % (0.0-1.0); %Eosinophils 3.4 % (0.0-10.0); %Monocytes 4.5 % (0.0-10.0); %Neutrophils 82.6 % (42.0-75.0); Mean Corpuscular Volume 80.6 fl (78.0-98.0); Mean Platelet Volume 10.5 fL (7.4-10.4); Platelet Count 196 10x3/uL (130-400); RBC Distribution Width 17.8 % (11.5-14.5); Red Blood Cell (RBC) Count 4.12 mill/uL (4.20-5.40); White Blood Cell (WBC) Count 8.6 10x3/uL (4.8-10.8)
[2023-03-21 05:29] LABS: Hematocrit 33.2 % (36.0-47.0); Hemoglobin 10.3 g/dL (12.0-16.0)
[2023-03-21 05:42] LABS: Lactic Acid 1.8 mmol/L (0.5-2.2)
[2023-03-21 05:48] LABS: Anion Gap 12 mmol/L (10-20); BUN (Urea Nitrogen) 18 mg/dL (9.8-20.1); Calc. Creatinine Clearance 120 mL/min (70-130); Calcium 7.7 mg/dL (7.8-10.44); Carbon Dioxide 24 mmol/L (22-29); Chloride 109 mmol/L (98-107); Estimated GFR 105; Glucose 122 mg/dL (70-105); Sodium 141 mmol/L (136-145)
[2023-03-21] MEDS ORDERED: Ketorolac Tromethamine 30 MG/ML VIAL ONE (05:59)
[2023-03-21] MEDS ORDERED: Ketorolac Tromethamine 30 MG/ML VIAL IVP SCH (06:00)
[2023-03-21 06:39] LABS: SARS-CoV-2 NAA Rapid Test Not Detected (NotDetected)
[2023-03-21] MEDS ORDERED: Ergocalciferol 1.25 MG(50,000 UNITS) CAP PO SCH (09:00)
[2023-03-21] MEDS ORDERED: PARoxetine 20 MG TAB PO SCH (09:15)
[2023-03-21] MEDS ORDERED: Clopidogrel Bisulfate 75 MG TAB PO SCH (09:15)
[2023-03-21] MEDS ORDERED: busPIRone HCl 5 MG TAB PO SCH (09:15)
[2023-03-21] MEDS ORDERED: Clopidogrel Bisulfate 75 MG TAB ONE (10:01)
[2023-03-21] MEDS: HYDROcodone/Acetaminophen 5/325 mg Tablet PO PRN ×2 (16:15→20:42)
[2023-03-21] MEDS: busPIRone HCl 5 MG TAB PO SCH (20:37)
[2023-03-21] MEDS: Allopurinol 100 MG TAB PO SCH (20:37)
[2023-03-21] MEDS: Oseltamivir 75 MG CAP PO SCH (20:37)
[2023-03-21] MEDS: Melatonin 3 MG TAB PO SCH (20:59)
[2023-03-21] MEDS: Ezetimibe 10 MG TAB PO SCH (20:59)
[2023-03-21] MEDS: Atorvastatin Calcium 20 MG TAB PO SCH (21:00)
[2023-03-22] MEDS: cefTRIAXone\\ROCEPHIN 1 GM in Sodium Chloride 0.9% 100 ML IVPB SCH (02:57)
[2023-03-22] MEDS: HYDROcodone/Acetaminophen 5/325 mg Tablet PO PRN ×4 (03:53→20:33)
[2023-03-22 07:13] LABS: Hematocrit 31.4 % (36.0-47.0); Hemoglobin 9.7 g/dL (12.0-16.0); Mean Corpuscular HGB CONC 30.9 g/dL (32.0-36.0); Mean Corpuscular Hemoglobin 25.3 pg (27.0-31.0); Mean Corpuscular Volume 81.8 fl (78.0-98.0); Mean Platelet Volume 11.1 fL (7.4-10.4); Platelet Count 168 10x3/uL (130-400); RBC Distribution Width 18.1 % (11.5-14.5); Red Blood Cell (RBC) Count 3.84 mill/uL (4.20-5.40); White Blood Cell (WBC) Count 4.2 10x3/uL (4.8-10.8)
[2023-03-22 07:23] LABS: Delete Auto Diff?? YES; Manual Diff?? YES
[2023-03-22 07:30] LABS: Anion Gap 8 mmol/L (10-20); BUN (Urea Nitrogen) 13 mg/dL (9.8-20.1); Calc. Creatinine Clearance 131 mL/min (70-130); Calcium 8.1 mg/dL (7.8-10.44); Carbon Dioxide 28 mmol/L (22-29); Chloride 111 mmol/L (98-107); Estimated GFR 108; Glucose 97 mg/dL (70-105); Potassium 3.8 mmol/L (3.5-5.1); Sodium 143 mmol/L (136-145)
[2023-03-22 08:24] LABS: Band 5 % (5-11); CellaVision Operator ID LAB.GE; Eosinophils 10 % (0-10); Hypochromia SLIGHT = 6-15 cells HPF (0-5); Lymphocytes 41 % (21-51); Monocytes 3 % (0-10); Neutrophil 38 % (42-75); Platelet Adequacy Comment Platelets Normal; Polychromasia SLIGHT = 2-3 cells HPF (0-2); Reactive Lymphocytes 3 % (0-10); Total Cell Count 100
[2023-03-22] MEDS: Clopidogrel Bisulfate 75 MG TAB PO SCH (08:52)
[2023-03-22] MEDS: Aspirin 81 mg Enteric Coated Tablet PO SCH (08:52)
[2023-03-22] MEDS: PARoxetine 20 MG TAB PO SCH (08:52)
[2023-03-22] MEDS: busPIRone HCl 5 MG TAB PO SCH ×2 (08:52→20:32)
[2023-03-22] MEDS: Oseltamivir 75 MG CAP PO SCH ×2 (08:52→20:33)
[2023-03-22] MEDS ORDERED: Clopidogrel Bisulfate 75 MG TAB PO SCH (09:00)
[2023-03-22] MEDS ORDERED: Aspirin 81 mg Enteric Coated Tablet PO SCH (09:00)
[2023-03-22] MEDS: Ondansetron PF 4 MG/2 ML Vial IVP PRN (10:03)
[2023-03-22] MEDS ORDERED: Simethicone Chewable 80 MG TAB PO PRN (18:02)
[2023-03-22] MEDS: Allopurinol 100 MG TAB PO SCH (20:32)
[2023-03-22] MEDS: Ezetimibe 10 MG TAB PO SCH (20:32)
[2023-03-22] MEDS: Melatonin 3 MG TAB PO SCH (20:33)
[2023-03-22] MEDS: Atorvastatin Calcium 20 MG TAB PO SCH (20:33)
[2023-03-23] MEDS: cefTRIAXone\\ROCEPHIN 1 GM in Sodium Chloride 0.9% 100 ML IVPB SCH (02:25)
[2023-03-23] MEDS: HYDROcodone/Acetaminophen 5/325 mg Tablet PO PRN (05:29)
[2023-03-23] MEDS: Ondansetron PF 4 MG/2 ML Vial IVP PRN (05:33)
[2023-03-23] MEDS: busPIRone HCl 5 MG TAB PO SCH (08:38)
[2023-03-23] MEDS: Aspirin 81 mg Enteric Coated Tablet PO SCH (08:38)
[2023-03-23] MEDS: PARoxetine 20 MG TAB PO SCH (08:38)
[2023-03-23] MEDS: Clopidogrel Bisulfate 75 MG TAB PO SCH (08:39)
[2023-03-23] MEDS: Oseltamivir 75 MG CAP PO SCH (08:39)
[2023-03-23 12:39] VITALS: BP 92/57; TEMP 98.1
[2023-03-28] MEDS ORDERED: Ergocalciferol 1.25 MG(50,000 UNITS) CAP PO SCH (09:00)
== END 2023-03-23 12:48 | disposition home or self-care (01) | DRG 872 ==
LOC: ERS 21:27 → ERHOLD 03-21 02:40 → T4-B 03-21 12:39
PROVIDERS: ADMIT Internal Medicine; ATTEND Internal Medicine
DX: A41.9 Sepsis, unspecified organism (principal); I50.32 Chronic diastolic (congestive) heart failure; E87.20 Acidosis, unspecified; C65.9 Malignant neoplasm of unspecified renal pelvis; A09 Infectious gastroenteritis and colitis, unspecified; E11.9 Type 2 diabetes mellitus without complications; E78.5 Hyperlipidemia, unspecified; G47.419 Narcolepsy without cataplexy; F41.9 Anxiety disorder, unspecified; F32.A Depression, unspecified; I25.10 Atherosclerotic heart disease of native coronary artery without angina pectoris; I11.0 Hypertensive heart disease with heart failure; E03.9 Hypothyroidism, unspecified; G47.33 Obstructive sleep apnea (adult) (pediatric); M10.9 Gout, unspecified; N20.0 Calculus of kidney; J10.1 Influenza due to other identified influenza virus with other respiratory manifestations; D64.9 Anemia, unspecified; M79.18 Myalgia, other site; Z86.73 Personal history of transient ischemic attack (TIA), and cerebral infarction without residual deficits; Z90.49 Acquired absence of other specified parts of digestive tract; Z90.710 Acquired absence of both cervix and uterus; Z98.890 Other specified postprocedural states; Z88.2 Allergy status to sulfonamides; Z79.82 Long term (current) use of aspirin; Z79.899 Other long term (current) drug therapy; Z87.891 Personal history of nicotine dependence; Z11.52 Encounter for screening for COVID-19
CPT/HCPCS: 36415; 36416; 71275; 74174; 80048; 80053; 81001; 82805; 83605; 83690; 84484; 85025; 87040; 87086; 87804; 93005; 96361; 96374; 96375; J0696; J1885; J2405; J3010; J3490; J7050; Q9967; U0002

== ENCOUNTER 2023-05-13 14:42 | Emergency (ER) | payer OTHER, MEDICAID ==
[2023-05-13] MEDS ORDERED: Ondansetron PF 4 MG/2 ML Vial ONE (16:24)
[2023-05-13 16:26] LABS: SARS-CoV-2 NAA Rapid Test Not Detected (NotDetected)
[2023-05-13 16:55] LABS: #Eosinphils 0.1 thou/uL (0.0-0.7); #Monocytes 0.8 thou/uL (0.11-0.59); %Basophils 0.2 % (0.0-1.0); %Eosinophils 0.9 % (0.0-10.0); %Monocytes 6.7 % (0.0-10.0); %Neutrophils 71.9 % (42.0-75.0); Hematocrit 35.9 % (36.0-47.0); Hemoglobin 11.6 g/dL (12.0-16.0); Mean Corpuscular HGB CONC 32.3 g/dL (32.0-36.0); Mean Corpuscular Hemoglobin 26.2 pg (27.0-31.0); Mean Platelet Volume 10.1 fL (7.4-10.4); Platelet Count 331 10x3/uL (130-400); RBC Distribution Width 16.1 % (11.5-14.5); Red Blood Cell (RBC) Count 4.43 mill/uL (4.20-5.40); White Blood Cell (WBC) Count 12.5 10x3/uL (4.8-10.8)
[2023-05-13 18:14] LABS: Anion Gap 16 mmol/L (10-20); BUN (Urea Nitrogen) 16 mg/dL (9.8-20.1); Calc. Creatinine Clearance 0 mL/min (70-130); Carbon Dioxide 24 mmol/L (22-29); Chloride 103 mmol/L (98-107); Potassium 4.4 mmol/L (3.5-5.1); Sodium 139 mmol/L (136-145)
[2023-05-13 18:15] LABS: ALT (SGPT) 15 U/L (8-55); AST (SGOT) 18 U/L (5-34); Albumin 3.9 g/dL (3.5-5.0); Alkaline Phosphatase 143 U/L (40-110); Bilirubin, Total 0.8 mg/dL (0.2-1.2); Calcium 9.9 mg/dL (7.8-10.44); Estimated GFR 106; Globulin 3.7 g/dL (2.4-3.5); Glucose 102 mg/dL (70-105); Protein, Total 7.6 g/dL (6.0-8.3)
[2023-05-13] MEDS ORDERED: Morphine 4 MG/ML VIAL ONE (18:38)
[2023-05-13 19:39] LABS: Bacteria/HPF None Seen HPF (None Seen); Bilirubin Negative (Negative); Blood, Urine Negative (Negative); CAUTI Indications for Culture Dysuria,urgency,freq; Clarity Clear (Clear); Glucose, Urine (Dipstick) Normal (Negative); Ketone, Urine Negative (Negative); Leukocyte Negative Leu/uL (Negative); Nitrite Negative (Negative); Protein, Urine (Dipstick) Negative (Neg-Trace); RBC/HPF 0-3 HPF (0-3); Specific Gravity, Urine 1.018 (1.002-1.036); Squamous Epithelial 0-3 HPF (0-3); Urobilinogen Normal mg/dL (Less than 2); WBC/HPF 0-3 HPF (0-3)
[2023-05-13 19:41] LABS: Urine Culture Reflex No No
[2023-05-13 19:43] LABS: Magnesium 1.4 mg/dL (1.6-2.6)
[2023-05-13 19:44] LABS: Lipase 29 U/L (8-78)
== END 2023-05-13 21:29 | disposition home or self-care (01) ==
LOC: ERS 14:42
DX: R10.9 Unspecified abdominal pain (principal); R53.1 Weakness; I10 Essential (primary) hypertension; E11.9 Type 2 diabetes mellitus without complications; E78.5 Hyperlipidemia, unspecified; Z79.82 Long term (current) use of aspirin; Z79.4 Long term (current) use of insulin; Z79.899 Other long term (current) drug therapy; Z79.02 Long term (current) use of antithrombotics/antiplatelets
CPT/HCPCS: 0240U; 74177; 80053; 81001; 83605; 83690; 83735; 85025; 87040; 87086; 36415; 96361; 96374; 96375; J2270; J2405; Q9967